=== PATIENT | male | born 1940 | race Caucasian/White ===

== ENCOUNTER 2017-03-31 11:01 | Inpatient (IN) | payer OTHER ==
[2017-03-31 11:13] VITALS: BMI 35.6
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
[2017-03-31] MEDS ORDERED: SODIUM CHLORIDE 1,000 ML IV STA ×2 (11:31→15:24)
[2017-03-31 11:53] LABS: VENOUS BLOOD GAS HCO3 25.6 meq/L (19-25); VENOUS PH 7.43 (7.32-7.42)
[2017-03-31 12:13] LABS: BASOPHIL 0.2 % (0-2.0); EOSINOPHIL 0.2 % (0-4.5); MCHC 33.8 g/dl (32.0-35.9); MEAN CELL VOLUME 94.6 fl (80-96); MEAN PLT VOLUME 7.8 fl (7.5-11.1); NEUTROPHILS 86.1 % (42.8-82.8); PLATELET COUNT 224 K/MM3 (134-434); RDW 14.9 % (11.9-15.9); WHITE BLOOD COUNT 10.1 K/mm3 (4.0-10.0)
[2017-03-31 12:17] LABS: URINE APPEARANCE CLEAR; URINE BILIRUBIN NEGATIVE (NEGATIVE); URINE BLOOD NEGATIVE (NEGATIVE); URINE COLOR DKYELLOW; URINE GLUCOSE (UA) NEGATIVE (NEGATIVE); URINE KETONE NEGATIVE (NEGATIVE); URINE LEUK ESTERASE NEGATIVE (NEGATIVE); URINE NITRITE NEGATIVE (NEGATIVE); URINE UROBILINOGEN NEGATIVE E.U./dl (0.2-1.0)
[2017-03-31 12:26] LABS: URINE PROTEIN 1+ (NEGATIVE)
[2017-03-31 12:40] LABS: ALBUMIN 2.6 g/dl (3.4-5.0); ANION GAP 10 (8-16); BILIRUBIN,TOTAL 0.9 mg/dL (0.2-1.0); CALCIUM 8.4 mg/dL (8.5-10.1); CO2 28 mmol/L (21-32); COCKROFT - GAULT 61.45; CREATININE 1.3 mg/dL (0.7-1.3); GLUCOSE,RANDOM 150 mg/dL (74-106); SGOT/AST 73 U/L (15-37); SGPT/ALT 63 U/L (12-78)
[2017-03-31 12:43] LABS: ALK PHOS 147 U/L (45-117); TOT PROT 5.9 g/dl (6.4-8.2); TROPONIN I < 0.02 ng/ml (0.00-0.05)
[2017-03-31 12:44] LABS: GRANULAR CASTS 10 /lpf; URINE MUCUS RARE; URINE RBC 1 /hpf (0-3); URINE WBC 1 /hpf (3-5)
[2017-03-31 12:55] LABS: INR 1.52 (0.82-1.09); PROTHROMBIN TIME (PATIENT) 16.9 SEC (9.98-11.88)
[2017-03-31 12:58] LABS: ACTIVATED PTT 31.2 SECONDS (26.9-34.4)
--- NOTE | 2017-03-31 13:59 | EKG ---
Test Reason : Blood Pressure : / mmHG Vent. Rate : 084 BPM Atrial Rate : 084 BPM P-R Int : 168 ms QRS Dur : 088 ms QT Int : 360 ms P-R-T Axes : 016 -09 063 degrees QTc Int : 425 ms NORMAL SINUS RHYTHM WITH SINUS ARRHYTHMIA NORMAL ECG NO PREVIOUS ECGS AVAILABLE Confirmed by ELIJAH TRAN MD ([id number]) on 03/31/2017 1:58:48 PM Referred By: Confirmed By:ELIJAH TRAN MD
--- NOTE | 2017-03-31 15:23 | PDOC ---
*Physical Exam - Vital Signs Last Vital Signs Temp Pulse Resp BP Pulse Ox 98.1 F 83 20 105/61 95 03/31/17 11:07 03/31/17 11:07 03/31/17 11:07 03/31/17 11:07 03/31/17 11:07 ED Treatment Course - LABORATORY CBC & Chemistry Diagram: 04/05/17 07:10 04/05/17 07:10 - ADDITIONAL ORDERS Additional order review: Laboratory Results 03/31/17 03/31/17 03/31/17 12:00 12:00 12:00 INR PTT (Actin FS) VBG pH POC VBG pCO2 POC VBG pO2 Mixed VBG HCO3 Sodium 143 Potassium 3.8 Chloride 105 Carbon Dioxide 28 Anion Gap 10 BUN 39 H Creatinine 1.3 Creat Clearance w eGFR 53.25 Random Glucose 150 H Lactic Acid 1.318 Calcium 8.4 L Total Bilirubin 0.9 AST 73 H ALT 63 Alkaline Phosphatase 147 H Creatine Kinase 54 Troponin I < 0.02 Total Protein 5.9 L Albumin 2.6 L Urine Color Urine Appearance Urine pH Urine Protein Urine Glucose (UA) Urine Ketones Urine Blood Urine Nitrite Urine Bilirubin Urine Urobilinogen Ur Leukocyte Esterase Urine RBC Urine WBC Granular Casts Urine Mucus Blood Type O POSITIVE Antibody Screen Negative 03/31/17 03/31/17 03/31/17 12:00 12:00 11:35 INR 1.52 H PTT (Actin FS) 31.2 VBG pH 7.43 H POC VBG pCO2 39.1 POC VBG pO2 52.1 H Mixed VBG HCO3 25.6 H Sodium Potassium Chloride Carbon Dioxide Anion Gap BUN Creatinine Creat Clearance w eGFR Random Glucose Lactic Acid Calcium Total Bilirubin AST ALT Alkaline Phosphatase Creatine Kinase Troponin I Total Protein Albumin Urine Color Dkyellow Urine Appearance Clear Urine pH 5.0 Urine Protein 1+ H Urine Glucose (UA) Negative Urine Ketones Negative Urine Blood Negative Urine Nitrite Negative Urine Bilirubin Negative Urine Urobilinogen Negative Ur Leukocyte Esterase Negative Urine RBC 1 Urine WBC 1 Granular Casts 10 Urine Mucus Rare Blood Type Antibody Screen 03/31/17 12:00 RBC 4.08 MCV 94.6 MCHC 33.8 RDW 14.9 MPV 7.8 Neutrophils % 86.1 H Lymphocytes % 9.2 Monocytes % 4.3 Eosinophils % 0.2 Basophils % 0.2 - Medications Given in the ED: ED Medications Discontinued Medications Generic Name Dose Route Start Last Admin Trade Name Freq PRN Reason Stop Dose Admin Sodium Chloride 1,000 mls @ 1,000 mls/hr 03/31/17 11:31 03/31/17 11:58 Normal Saline - IV 03/31/17 12:30 1,000 mls/hr ASDIR STA Administration Medical Decision Making - Medical Decision Making 03/31/17 15:22 Patient seen and evaluated with the nurse practitioner. I agree with the overall evaluation, assessment, and management with the following summary of visit: 77-year-old male from alf complaining of abdominal pain and cough. Workup revealed white count of 10 with left shift, moderate left pleural effusion which is new from previous chest x-ray, normal abdominal x-ray. CT of the abdomen and pelvis is pending. Blood bed for new pleural effusion in the setting of cough, likely coverage for pneumonia, further evaluation of abdominal pain. *DC/Admit/Observation/Transfer Diagnosis at time of Disposition: Pleural effusion Abdominal pain Qualifiers: Abdominal location: right lower quadrant Qualified Code(s): R10.31 - Right lower quadrant pain
[2017-03-31] MEDS ORDERED: ONDANSETRON 4 MG/2 ML VIAL IVPB PRN (21:08)
[2017-03-31] MEDS ORDERED: VANCOMYCIN 1 GRAM (PRE-DOCKED) 250 ML IVPB ONE (21:15)
[2017-03-31] MEDS ORDERED: PIPERACILLIN/TAZOB 3.375 GM 50 ML IVPB ONE (21:15)
[2017-03-31] MEDS: DOCUSATE SODIUM 100 MG CAPSULE (FP) PO SCH (22:22)
[2017-03-31] MEDS: INSULIN SLIDING SCALE (NOVOLOG) 1 VIAL SQ SCH (22:23)
[2017-04-01] MEDS: INSULIN SLIDING SCALE (NOVOLOG) 1 VIAL SQ SCH ×3 (06:05→17:23)
[2017-04-01 08:37] LABS: BASOPHIL 0.2 % (0-2.0); EOSINOPHIL 0.3 % (0-4.5); MCH 32.2 pg (25.7-33.7); MEAN CELL VOLUME 94.7 fl (80-96); MEAN PLT VOLUME 7.7 fl (7.5-11.1); NEUTROPHILS 85.7 % (42.8-82.8); PLATELET COUNT 217 K/MM3 (134-434)
[2017-04-01 08:48] LABS: CALCIUM 7.6 mg/dL (8.5-10.1); COCKROFT - GAULT 72.63; CREATININE 1.1 mg/dL (0.7-1.3); MAGNESIUM 2.7 mg/dL (1.8-2.4); PHOSPHOROUS 3.2 mg/dL (2.5-4.9)
[2017-04-01] MEDS: TAMSULOSIN HCL 0.4 MG CAP.ER.24H (FP) PO SCH (10:04)
[2017-04-01] MEDS: ENOXAPARIN NA (PORCINE) 40 MG/0.4 ML DISP.SYRIN SQ SCH (10:04)
[2017-04-01] MEDS: DOCUSATE SODIUM 100 MG CAPSULE (FP) PO SCH ×2 (10:04→10:22)
[2017-04-01] MEDS: MEMANTINE HCL 10 MG TABLET (FP) PO SCH (10:04)
[2017-04-01] MEDS: LACTOBACILLUS ACIDOPHILUS 1 EACH TAB (FP) PO SCH (10:04)
[2017-04-01] MEDS: POLYETHYLENE GLYCOL 3350 119 GM BTL PO SCH (10:05)
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
[2017-04-01] MEDS: PIPERACILLIN/TAZOB 3.375 GM 50 ML IVPB SCH ×2 (11:20→18:32)
--- NOTE | 2017-04-01 12:29 | HP ---
Admitting History and Physical - Primary Care Physician PCP: Donaldo Lucero - Admission Chief Complaint: I felt better yesterday History of Present Illness: Mr Damon is a 77 year old male who comes from [facility] for chest pain and pleural effusion. Patient says he feels fine. He denies fevers, chills lightheadedness, dizziness, passing out, chest pain, shortness of breath, nausea , vomiting, diarrhea, constipation, difficulty or pain on urination, or swelling. He says he did have a cough but it lasted for only 1 hour before it resolved. Currently he says he feels fine, but that he "needed to get out of that place" because he felt he "wasn't being treated right". Per ER note patient says he had nausea and vomiting. History Source: Patient, Medical Record Limitations to Obtaining History: Dementia - Past Medical History Pulmonary: Yes: COPD Renal/: Yes: BPH Endocrine: Yes: Diabetes Mellitus - Past Surgical History Past Surgical History: Yes: Hernia Repair - Smoking History Smoking history: Unknown if ever smoked Have you smoked in the past 12 months: No - Alcohol/Substance Use Hx Alcohol Use: No History of Substance Use: reports: None - Social History Usual Living Arrangement: Yes: Senior Living ADL: Support Services History of Recent Travel: No Home Medications - Allergies Allergies/Adverse Reactions: Allergies Allergy/AdvReac Type Severity Reaction Status Date / Time No Known Allergies Allergy Verified 03/31/17 11:03 - Home Medications Home Medications: Ambulatory Orders Albuterol 2.5/Ipratropium 0.5 [Duoneb -] 1 neb NEB Q4H 03/31/17 Furosemide [Lasix] 80 mg PO DAILY 03/31/17 Insulin Lispro [Humalog] 100 unit SQ DAILY 03/31/17 Memantine HCl [Namenda -] 10 mg PO DAILY 03/31/17 Tamsulosin HCl 0.4 mg PO DAILY 03/31/17 Family Disease History - Family Disease History Family History: Denies Review of Systems Findings/Remarks: Full review of systems obtained, as per HPI and otherwise negative. However accuracy is questionable. Physical Examination Vital Signs: Vital Signs Temperature 99.3 F 04/01/17 09:48 Pulse Rate 88 04/01/17 09:48 Respiratory Rate 18 04/01/17 09:48 Blood Pressure 132/73 04/01/17 09:48 O2 Sat by Pulse Oximetry (%) 96 04/01/17 10:00 Constitutional: Yes: No Distress, Calm, Obese Eyes: Yes: Conjunctiva Clear, PERRL HENT: Yes: Atraumatic, Normocephalic Cardiovascular: Yes: Regular Rate and Rhythm. No: Gallop, Murmur, Rub Respiratory: Yes: Regular, On Nasal O2, Rales (slight, but with poor effort). No: Rhonchi, Wheezes Gastrointestinal: Yes: Normal Bowel Sounds, Soft. No: Distention, Tenderness Extremities: Yes: WNL Edema: No Labs: CBC, BMP 04/01/17 07:30 04/01/17 07:30 Imaging - Results Chest X-ray: Report Reviewed, Image Reviewed Cat Scan: Report Reviewed Problem List - Problems (1) HCAP (healthcare-associated pneumonia) Assessment/Plan: -patient presents with concern for infection including HCAP -difficult to ascertain as patient makes different complaints -ID following -continue zosyn Code(s): J18.9 - PNEUMONIA, UNSPECIFIED ORGANISM (2) Pleural effusion Assessment/Plan: -seen on CXR and CT scan -pulmonary consult -evaluate for possible thoracentesis Code(s): J90 - PLEURAL EFFUSION, NOT ELSEWHERE CLASSIFIED (3) Abdominal pain Assessment/Plan: -resolved per patient, currently saying never had -CT scan showing possible colitis -continue zosyn Code(s): R10.9 - UNSPECIFIED ABDOMINAL PAIN Qualifiers: Abdominal location: right lower quadrant Qualified Code(s): R10.31 - Right lower quadrant pain (4) Dementia Assessment/Plan: -continue namenda Code(s): F03.90 - UNSPECIFIED DEMENTIA WITHOUT BEHAVIORAL DISTURBANCE (5) COPD (chronic obstructive pulmonary disease) Assessment/Plan: -not in exacerbation -continue home regimen Code(s): J44.9 - CHRONIC OBSTRUCTIVE PULMONARY DISEASE, UNSPECIFIED (6) Diabetes mellitus Assessment/Plan: -diabetic diet -FSBS and SSI Code(s): E11.9 - TYPE 2 DIABETES MELLITUS WITHOUT COMPLICATIONS (7) BPH (benign prostatic hyperplasia) Assessment/Plan: -continue tamsulosin Code(s): N40.0 - BENIGN PROSTATIC HYPERPLASIA WITHOUT LOWER URINRY TRACT SYMP
--- NOTE | 2017-04-01 15:38 | CON.PULM ---
Consult Consult Specialty:: PULMONARY Referred by:: Dr. Rosales Reason for Consultation:: pleural effusion - History of Present Illness Chief Complaint: abdominal pain History of Present Illness: 77yo male with h/o DM, COPD, BPH who [facility]. He reports a nonproductive cough without wheezing. No shortness of breath or palpitations. No fevers, chills or sweats. No nausea, vomiting or diarrhea. He reports that his roommate at the [facility] was ill with a cough. No recent travel. He is a remote smoker, worked in a bakery. CT A/P done showing possible colitis but lung windows revealing left effusion with consolidation vs mass. - History Source History Provided By: Patient, Medical Record Limitations to Obtaining History: Poor Historian - Past Medical History Pulmonary: Yes: COPD Renal/: Yes: BPH Endocrine: Yes: Diabetes Mellitus - Past Surgical History Past Surgical History: Yes: Hernia Repair - Alcohol/Substance Use Hx Alcohol Use: No History of Substance Use: reports: None - Smoking History Smoking history: Unknown if ever smoked Have you smoked in the past 12 months: No - Social History ADL: Support Services History of Recent Travel: No Home Medications - Allergies Allergies/Adverse Reactions: Allergies Allergy/AdvReac Type Severity Reaction Status Date / Time No Known Allergies Allergy Verified 03/31/17 11:03 - Home Medications Home Medications: Ambulatory Orders Albuterol 2.5/Ipratropium 0.5 [Duoneb -] 1 neb NEB Q4H 03/31/17 Furosemide [Lasix] 80 mg PO DAILY 03/31/17 Insulin Lispro [Humalog] 100 unit SQ DAILY 03/31/17 Memantine HCl [Namenda -] 10 mg PO DAILY 03/31/17 Tamsulosin HCl 0.4 mg PO DAILY 03/31/17 Review of Systems - Review of Systems Constitutional: reports: Weakness. denies: Chills, Fever Eyes: denies: Recent Change in Vision HENT: denies: Nasal Congestion, Throat Pain Neck: denies: Stiffness, Tenderness Cardiovascular: reports: Chest Pain. denies: Edema, Palpitations, Shortness of Breath Respiratory: reports: Cough. denies: Hemoptysis, SOB, Wheezing Gastrointestinal: reports: Abdominal Pain. denies: Nausea, Vomiting Genitourinary: denies: Dysuria, Hematuria Neurological: denies: Dizziness, Headache Physical Exam Vital Sings: Vital Signs Temperature 98.8 F 04/01/17 14:24 Pulse Rate 79 04/01/17 14:24 Respiratory Rate 15 04/01/17 14:24 Blood Pressure 90/52 04/01/17 14:24 O2 Sat by Pulse Oximetry (%) 96 04/01/17 10:00 Constitutional: Yes: Calm Eyes: Yes: Conjunctiva Clear, EOM Intact HENT: Yes: Atraumatic, Normocephalic Neck: Yes: Supple, Trachea Midline Cardiovascular: Yes: Regular Rate and Rhythm Respiratory: Yes: Diminished (decreased breath sounds left base) ...Clubbing: No Gastrointestinal: Yes: Normal Bowel Sounds, Soft. No: Tenderness Edema: No Neurological: Yes: Alert, Oriented Labs: CBC, BMP 04/01/17 07:30 04/01/17 07:30 Imaging - Results Chest X-ray: Report Reviewed, Image Reviewed Problem List - Problems (1) COPD (chronic obstructive pulmonary disease) Code(s): J44.9 - CHRONIC OBSTRUCTIVE PULMONARY DISEASE, UNSPECIFIED (2) Diabetes mellitus Code(s): E11.9 - TYPE 2 DIABETES MELLITUS WITHOUT COMPLICATIONS (3) HCAP (healthcare-associated pneumonia) Code(s): J18.9 - PNEUMONIA, UNSPECIFIED ORGANISM (4) Pleural effusion Code(s): J90 - PLEURAL EFFUSION, NOT ELSEWHERE CLASSIFIED Assessment/Plan r/o Pneumonia Pleural Effusion COPD DM BPH - will order diagnostic ultrasound guided thoracentesis - hold AM lovenox - send pleural fluid for LDH, total protein, glucose, cholesterol, cell count, cultures and cytology - would obtain CT chest noncontrast post thoracentesis to further evaluate for underlying pathology - agree with empiric antibiotics - f/u cultures - inhaled bronchodilators as needed - DVT prophylaxis Thank you for this consult Higinio Ordaz MD
[2017-04-01] MEDS ORDERED: INSULIN (NOVOLOG MIX 70/30) 100 UNITS/ML MDV SQ ONE (17:07)
[2017-04-01] MEDS ORDERED: INSULIN (NOVOLOG) ASPART 100 UNITS/ML 10ML VIAL ONE (17:07)
[2017-04-01] MEDS: ALBUTEROL SO4 2.5/IPRATROPIUM 0.5 INH SOL 3 ML VIAL.NEB. NEB SCH (22:05)
[2017-04-02] MEDS: INSULIN SLIDING SCALE (NOVOLOG) 1 VIAL SQ SCH ×5 (00:10→21:56)
[2017-04-02] MEDS: PIPERACILLIN/TAZOB 3.375 GM 50 ML IVPB SCH ×3 (01:27→17:15)
[2017-04-02] MEDS: ALBUTEROL SO4 2.5/IPRATROPIUM 0.5 INH SOL 3 ML VIAL.NEB. NEB SCH ×4 (02:20→22:19)
[2017-04-02 08:04] LABS: BASOPHIL 0.3 % (0-2.0); EOSINOPHIL 1.5 % (0-4.5); MCH 32.5 pg (25.7-33.7); MCHC 34.3 g/dl (32.0-35.9); MEAN CELL VOLUME 94.8 fl (80-96); MEAN PLT VOLUME 7.6 fl (7.5-11.1); NEUTROPHILS 68.2 % (42.8-82.8); PLATELET COUNT 207 K/MM3 (134-434); RDW 14.9 % (11.9-15.9); WHITE BLOOD COUNT 5.5 K/mm3 (4.0-10.0)
[2017-04-02 08:29] LABS: CALCIUM 7.9 mg/dL (8.5-10.1); COCKROFT - GAULT 72.63; CREATININE 1.1 mg/dL (0.7-1.3); MAGNESIUM 2.8 mg/dL (1.8-2.4); PHOSPHOROUS 3.8 mg/dL (2.5-4.9)
[2017-04-02 08:30] LABS: INR 1.44 (0.82-1.09)
[2017-04-02] MEDS: MEMANTINE HCL 10 MG TABLET (FP) PO SCH (10:02)
[2017-04-02] MEDS: LACTOBACILLUS ACIDOPHILUS 1 EACH TAB (FP) PO SCH (10:02)
[2017-04-02] MEDS: POLYETHYLENE GLYCOL 3350 119 GM BTL PO SCH (10:02)
[2017-04-02] MEDS: TAMSULOSIN HCL 0.4 MG CAP.ER.24H (FP) PO SCH (10:02)
[2017-04-02 12:29] LABS: GLUCOSE,PLEURAL FLUID 136.506; TOTAL PROTEIN,PLEURAL FLUID 3.675
[2017-04-02 12:32] LABS: PLEURAL FLUID SOURCE LEFT PLEURAL FLUID
[2017-04-02 12:33] LABS: PLEURAL FLUID APPEARANCE HAZY; PLEURAL FLUID COLOR YELLOW
--- NOTE | 2017-04-02 12:38 | PN ---
Progress Note, Physician Chief Complaint: Mr Damon complains of a cough, but otherwise says he is doing well. No cp, sob, n/v. - Current Medication List Current Medications: Active Medications Acetaminophen (Tylenol -) 650 mg PO Q4H PRN PRN Reason: FEVER OR PAIN Albuterol/Ipratropium (Duoneb -) 1 amp NEB Q4HPO [facility] Last Admin: 04/02/17 10:00 Dose: 1 amp Enoxaparin Sodium (Lovenox -) 40 mg SQ DAILY [facility] Last Admin: 04/01/17 10:04 Dose: 40 mg Piperacillin Sod/Tazobactam Sod (Zosyn 3.375gm Ivpb (Pre-Docked)) 50 mls @ 100 mls/hr IVPB Q8H-IV [facility] PRN Reason: Protocol Last Admin: 04/02/17 10:01 Dose: 100 mls/hr Insulin Aspart (Novolog Vial Sliding Scale -) 1 vial SQ ACHS [facility] PRN Reason: Protocol Last Admin: 04/02/17 12:28 Dose: Not Given Lactobacillus Acidophilus (Bacid -) 1 tab PO DAILY [facility] Last Admin: 04/02/17 10:02 Dose: 1 tab Memantine (Namenda -) 10 mg PO DAILY [facility] Last Admin: 04/02/17 10:02 Dose: 10 mg Ondansetron HCl (Zofran Injection) 4 mg IVPB Q6H PRN PRN Reason: NAUSEA Polyethylene Glycol (Miralax (For Daily Use) -) 17 gm PO DAILY [facility] Last Admin: 04/02/17 10:02 Dose: Not Given Tamsulosin HCl (Flomax -) 0.4 mg PO DAILY [facility] Last Admin: 04/02/17 10:02 Dose: 0.4 mg - Objective Vital Signs: Vital Signs Temperature 98.8 F 04/02/17 10:00 Pulse Rate 71 04/02/17 10:00 Respiratory Rate 18 04/02/17 10:00 Blood Pressure 101/54 04/02/17 10:00 O2 Sat by Pulse Oximetry (%) 95 04/01/17 22:00 Constitutional: Yes: No Distress, Calm, Obese Cardiovascular: Yes: Regular Rate and Rhythm. No: Gallop, Murmur, Rub Respiratory: Yes: Regular, CTA Bilaterally, Cough. No: Rales, Rhonchi, Wheezes Gastrointestinal: Yes: Normal Bowel Sounds, Soft. No: Distention, Tenderness Extremities: Yes: WNL Edema: No Labs: CBC, BMP 04/02/17 06:00 04/02/17 06:00 INR, PTT INR 1.44 (0.82-1.09) H 04/02/17 06:00 Problem List - Problems (1) Septicemia Code(s): A41.9 - SEPSIS, UNSPECIFIED ORGANISM (2) HCAP (healthcare-associated pneumonia) Code(s): J18.9 - PNEUMONIA, UNSPECIFIED ORGANISM (3) Pleural effusion Code(s): J90 - PLEURAL EFFUSION, NOT ELSEWHERE CLASSIFIED (4) Abdominal pain Code(s): R10.9 - UNSPECIFIED ABDOMINAL PAIN Qualifiers: Abdominal location: right lower quadrant Qualified Code(s): R10.31 - Right lower quadrant pain (5) Dementia Code(s): F03.90 - UNSPECIFIED DEMENTIA WITHOUT BEHAVIORAL DISTURBANCE (6) COPD (chronic obstructive pulmonary disease) Code(s): J44.9 - CHRONIC OBSTRUCTIVE PULMONARY DISEASE, UNSPECIFIED (7) Diabetes mellitus Code(s): E11.9 - TYPE 2 DIABETES MELLITUS WITHOUT COMPLICATIONS (8) BPH (benign prostatic hyperplasia) Code(s): N40.0 - BENIGN PROSTATIC HYPERPLASIA WITHOUT LOWER URINRY TRACT SYMP Assessment/Plan (1) Septicemia Assessment/Plan: -cultures growing alpha hemolytic strep -continue antibiotics -ID following -patient stable -agree with ECHO per pulmonary Code(s): J18.9 - PNEUMONIA, UNSPECIFIED ORGANISM (2) Pleural effusion Assessment/Plan: -/p thoracentesis -exudate per studies -CT scan Code(s): J90 - PLEURAL EFFUSION, NOT ELSEWHERE CLASSIFIED (3) Abdominal pain Assessment/Plan: -resolved per patient, currently saying never had Code(s): R10.9 - UNSPECIFIED ABDOMINAL PAIN Qualifiers: Abdominal location: right lower quadrant Qualified Code(s): R10.31 - Right lower quadrant pain (4) Dementia Assessment/Plan: -continue namenda Code(s): F03.90 - UNSPECIFIED DEMENTIA WITHOUT BEHAVIORAL DISTURBANCE (5) COPD (chronic obstructive pulmonary disease) Assessment/Plan: -not in exacerbation -continue home regimen Code(s): J44.9 - CHRONIC OBSTRUCTIVE PULMONARY DISEASE, UNSPECIFIED (6) Diabetes mellitus Assessment/Plan: -diabetic diet -FSBS and SSI Code(s): E11.9 - TYPE 2 DIABETES MELLITUS WITHOUT COMPLICATIONS (7) BPH (benign prostatic hyperplasia) Assessment/Plan: -continue tamsulosin Code(s): N40.0 - BENIGN PROSTATIC HYPERPLASIA WITHOUT LOWER URINRY TRACT SYMP
--- NOTE | 2017-04-02 12:45 | EKG ---
Test Reason : Blood Pressure : / mmHG Vent. Rate : 083 BPM Atrial Rate : 083 BPM P-R Int : 162 ms QRS Dur : 090 ms QT Int : 358 ms P-R-T Axes : 002 -12 051 degrees QTc Int : 420 ms NORMAL SINUS RHYTHM WITH SINUS ARRHYTHMIA NORMAL ECG WHEN COMPARED WITH ECG OF 31-MAR-2017 11:22, NO SIGNIFICANT CHANGE WAS FOUND Confirmed by SHAQIULLE ALVAREZ, GALINA ([id number]) on 04/02/2017 12:45:26 PM Referred By: SHARI Confirmed By:GALINA CORBIN MD
[2017-04-02 13:09] LABS: PLEURAL FLUID LYMPHOCYTES 15 %; PLEURAL FLUID MACROPHAGES 15 %; PLEURAL FLUID NEUTROPHIL 69 %
--- NOTE | 2017-04-02 15:01 | PN ---
Progress Note (short form) - Note Progress Note: PULMONARY RESTING COMFORTABLY VSS/AFEBRILE ANICTERIC DIMINISHED BREATH SOUNDS LEFT BASE S1S2 BS+ OBESE NO EDEMA LABS/MEDS/NOTES/MICRO/IMAGING REVIEWED - Problems (1) COPD (chronic obstructive pulmonary disease) Code(s): J44.9 - CHRONIC OBSTRUCTIVE PULMONARY DISEASE, UNSPECIFIED (2) Diabetes mellitus Code(s): E11.9 - TYPE 2 DIABETES MELLITUS WITHOUT COMPLICATIONS (3) HCAP (healthcare-associated pneumonia) Code(s): J18.9 - PNEUMONIA, UNSPECIFIED ORGANISM (4) Pleural effusion Code(s): J90 - PLEURAL EFFUSION, NOT ELSEWHERE CLASSIFIED (5) Strep bacteremia - thoracentesis reveals exudate by protein criteria - likely represents an uncomplicated para-pneumonic effusion - Strep bacteremia - awaiting gram stain pleural fluid - will obtain CT chest noncontrast post thoracentesis to further evaluate for underlying pathology - agree with empiric antibiotics - have ordered echo - inhaled bronchodilators as needed - DVT prophylaxis
[2017-04-02] MEDS ORDERED: INSULIN (NOVOLOG) ASPART 100 UNITS/ML 10ML VIAL ONE (21:29)
[2017-04-02] MEDS: SILVER SULFADIAZINE 1% TOP CREAM 50 GM JAR TP SCH (21:56)
[2017-04-02] MEDS ORDERED: BACITRACIN/POLYMYXIN B SULFATE 15 GM TUBE TP SCH (22:00)
[2017-04-03] MEDS: PIPERACILLIN/TAZOB 3.375 GM 50 ML IVPB SCH ×3 (01:50→17:48)
[2017-04-03] MEDS: ALBUTEROL SO4 2.5/IPRATROPIUM 0.5 INH SOL 3 ML VIAL.NEB. NEB SCH ×6 (02:10→21:55)
[2017-04-03] MEDS: INSULIN SLIDING SCALE (NOVOLOG) 1 VIAL SQ SCH ×4 (06:26→21:49)
[2017-04-03 08:31] LABS: BASOPHIL 0.5 % (0-2.0); MCH 31.8 pg (25.7-33.7); MCHC 33.9 g/dl (32.0-35.9); MEAN CELL VOLUME 94.1 fl (80-96); MEAN PLT VOLUME 7.4 fl (7.5-11.1); NEUTROPHILS 73.3 % (42.8-82.8); PLATELET COUNT 206 K/MM3 (134-434); RDW 14.9 % (11.9-15.9); WHITE BLOOD COUNT 4.3 K/mm3 (4.0-10.0)
[2017-04-03 08:54] LABS: COCKROFT - GAULT 79.89; MAGNESIUM 2.7 mg/dL (1.8-2.4); PHOSPHOROUS 3.6 mg/dL (2.5-4.9)
[2017-04-03] MEDS: MEMANTINE HCL 10 MG TABLET (FP) PO SCH (10:34)
[2017-04-03] MEDS: LACTOBACILLUS ACIDOPHILUS 1 EACH TAB (FP) PO SCH (10:35)
[2017-04-03] MEDS: TAMSULOSIN HCL 0.4 MG CAP.ER.24H (FP) PO SCH (10:35)
[2017-04-03] MEDS: SILVER SULFADIAZINE 1% TOP CREAM 50 GM JAR TP SCH ×2 (10:36→21:50)
[2017-04-03] MEDS: ENOXAPARIN NA (PORCINE) 40 MG/0.4 ML DISP.SYRIN SQ SCH (10:41)
[2017-04-03] MEDS: POLYETHYLENE GLYCOL 3350 119 GM BTL PO SCH (10:42)
--- NOTE | 2017-04-03 12:24 | PN ---
Progress Note (short form) - Note Progress Note: PULMONARY States breathing is better post thoracentesis. Fluid consistent with exudate, blood cultures growing strep pneumo. Gram stain of pleural fluid without organisms. Last Vital Signs Temp Pulse Resp BP Pulse Ox 98.2 F 76 18 109/56 95 04/03/17 06:00 04/03/17 06:00 04/03/17 06:00 04/03/17 06:00 04/02/17 21:00 Gen: NAD at rest Heart: RRR Lung: decreased breath sounds left base Abd: soft, nontender Ext: no edema CBC, BMP 04/03/17 08:00 04/03/17 08:00 Active Medications Acetaminophen (Tylenol -) 650 mg PO Q4H PRN PRN Reason: FEVER OR PAIN Albuterol/Ipratropium (Duoneb -) 1 amp NEB Q4HPO [facility] Last Admin: 04/03/17 10:17 Dose: 1 amp Enoxaparin Sodium (Lovenox -) 40 mg SQ DAILY [facility] Last Admin: 04/03/17 10:41 Dose: 40 mg Piperacillin Sod/Tazobactam Sod (Zosyn 3.375gm Ivpb (Pre-Docked)) 50 mls @ 100 mls/hr IVPB Q8H-IV [facility] PRN Reason: Protocol Last Admin: 04/03/17 10:35 Dose: 100 mls/hr Insulin Aspart (Novolog Vial Sliding Scale -) 1 vial SQ ACHS [facility] PRN Reason: Protocol Last Admin: 04/03/17 06:26 Dose: Not Given Lactobacillus Acidophilus (Bacid -) 1 tab PO DAILY [facility] Last Admin: 04/03/17 10:35 Dose: 1 tab Memantine (Namenda -) 10 mg PO DAILY [facility] Last Admin: 04/03/17 10:34 Dose: 10 mg Ondansetron HCl (Zofran Injection) 4 mg IVPB Q6H PRN PRN Reason: NAUSEA Polyethylene Glycol (Miralax (For Daily Use) -) 17 gm PO DAILY [facility] Last Admin: 04/03/17 10:42 Dose: 17 gm Silver Sulfadiazine (Silvadene -) 1 applic TP BID [facility] Last Admin: 04/03/17 10:36 Dose: 1 applic Tamsulosin HCl (Flomax -) 0.4 mg PO DAILY [facility] Last Admin: 04/03/17 10:35 Dose: 0.4 mg A/P Pneumonia Parapneumonic Pleural Effusion COPD DM BPH - f/u pleural fluid cultures, cytology - will order CT chest noncontrast post thoracentesis to further evaluate for underlying pathology - continue antibiotics, can likely de-escalate - f/u final cultures - inhaled bronchodilators as needed - DVT prophylaxis Problem List - Problems (1) COPD (chronic obstructive pulmonary disease) Code(s): J44.9 - CHRONIC OBSTRUCTIVE PULMONARY DISEASE, UNSPECIFIED (2) Diabetes mellitus Code(s): E11.9 - TYPE 2 DIABETES MELLITUS WITHOUT COMPLICATIONS (3) HCAP (healthcare-associated pneumonia) Code(s): J18.9 - PNEUMONIA, UNSPECIFIED ORGANISM (4) Pleural effusion Code(s): J90 - PLEURAL EFFUSION, NOT ELSEWHERE CLASSIFIED
--- NOTE | 2017-04-03 12:37 | CONSULT ---
Admitting History and Physical - Primary Care Physician PCP: Quintin Rosales - Past Medical History Pulmonary: Yes: COPD Renal/: Yes: BPH Endocrine: Yes: Diabetes Mellitus - Past Surgical History Past Surgical History: Yes: Hernia Repair - Smoking History Smoking history: Unknown if ever smoked Have you smoked in the past 12 months: No - Alcohol/Substance Use Hx Alcohol Use: No History of Substance Use: reports: None - Social History ADL: Support Services History of Recent Travel: No History - Admission Reason For Visit: LEUKOCYTOSIS; PLEURAL EFFUSION - Hearing Hearing: Normal Hearing Aide: No Speech Evaluation - Communication Primary Language: BRAZILIAN
--- NOTE | 2017-04-03 12:40 | CONSULT ---
Admitting History and Physical - Primary Care Physician PCP: Quintin Rosales - Admission History of Present Illness: Mr Damon is a 77 year old male who comes from [facility] for chest pain and pleural effusion. Reported to be breathing is better post thoracentesis. Fluid consistent with exudate, blood cultures growing strep pneumo. Gram stain of pleural fluid without organisms c/o regarding food consisteny. Pt has cough. Staff concerned regarding possible dysphagia, hence, swallow evaluation order placed. Per RD: "77 y/o M admitted with leukocytosis, pleural effusions, HCAP Diet: Diabetic/Chopped Pt is edentulous; diet in SNF: SOFT, easy to chew, NCS/MYRNA Pt is not taking meals; c/o of hospital foods, dislikes chopped foods. Asking for cheerios, pork, PB sandwich. Verbalizes dissatisfaction of meals choices in SNF as well. D/w Dr Rosales- possible diet upgrade to soft low na , diabetic diet. Per RN-pt is unable to swallow pills,prefers meds crushed. Denied swallowing difficulty" Seems like a good historian. c/o left shoulder pain. History Source: Patient Limitations to Obtaining History: No Limitations - Past Medical History Pulmonary: Yes: COPD Renal/: Yes: BPH Endocrine: Yes: Diabetes Mellitus - Past Surgical History Past Surgical History: Yes: Hernia Repair - Smoking History Smoking history: Unknown if ever smoked Have you smoked in the past 12 months: No - Alcohol/Substance Use Hx Alcohol Use: No History of Substance Use: reports: None - Social History ADL: Support Services History of Recent Travel: No History - Admission Reason For Visit: LEUKOCYTOSIS; PLEURAL EFFUSION - Diagnostics X-ray: Report Reviewed - General Mental Status: Alert and Oriented, Awake and Alert, Able to Follow Commands Attention: Intact Ability to Follow Directions: Good Head/Neck Control: WFL - Hearing Hearing: Functional Hearing: Normal Hearing Aide: No Speech Evaluation - Communication Primary Language: ROMANSH Communication: Yes: Within Normal Limits Oral Expression Ability: Yes: No Impairment - Speech Characteristics Voice Loudness: Normal Voice Pitch: Yes: Normal Voice Phonatory-based Quality: Yes: Normal Nasal Resonance: Normal Articulation: Yes: Precise Rate of Speech: Intact - Language/Verbal Expression Able to Respond to Simple Queries: Yes: WNL Able to Communicate Wants and Needs: Yes: WNL Functional Communication Status: Yes: WNL - Swallow Evaluation/Bedside Assessment Current Nutritional Intake: Soft Oral Secretions: Yes: WFL Dentition: Yes: Edentulous Facial Symmetry at Rest: Symmetrical Facial Symmetry on Retraction: Symmetrical Facial Movement: Controlled Against Resistance Opening: Normal Against Resistance Closing: Normal Pucker Lips: Normal Smile: Normal Lingual Movement: Normal, Deviates Left (slight?) Lingual Speed of Movement: Normal Lingual Movement Strgth Against Opposition: Normal Lingual Movement Characteristics: Normal Velopharyngeal Movement: Normal Laryngeal Elevation: WFL Laryngeal Movement: Able to Palpate Rate of Intake: WFL Bolus Size: WFL Labial Seal: WFL Chewing: WFL (gums solid food extensively until well masticated.) Oral Prep Time: WFL A-P Transit: WFL Pocketing: None Timing of Swallow: WFL Coughing/Throat Clear: No Change in Voice: No Recommendations - Speech Evaluation, Impression/Plan Impression: 3 oz water test (-).Edentulous, however, gums solid food extensively until well masticated.Euphonic voice. Coughs without po trials. Likes soft, easy to chew foods. - Dysphagia Impressions/Plan Dysphagia Impressions: Mild Impairment (seems intact) *Silent aspiration: cannot be R/O at bedside (overtly intact) Recommendations: Modified Barium Swallow (if dysphagia/ aspiration observed or suspected) - Recommendations Diet Consistency: Regular (Soft easy to chew foods. Menu selection for pt preferences.) Liquids: Thin Liquids
--- NOTE | 2017-04-03 13:23 | PN ---
Progress Note, Physician Chief Complaint: Mr Damon says he is feeling better today. No cp, sob, n/v. - Current Medication List Current Medications: Active Medications Acetaminophen (Tylenol -) 650 mg PO Q4H PRN PRN Reason: FEVER OR PAIN Albuterol/Ipratropium (Duoneb -) 1 amp NEB Q4HPO [facility] Last Admin: 04/03/17 10:17 Dose: 1 amp Enoxaparin Sodium (Lovenox -) 40 mg SQ DAILY [facility] Last Admin: 04/03/17 10:41 Dose: 40 mg Piperacillin Sod/Tazobactam Sod (Zosyn 3.375gm Ivpb (Pre-Docked)) 50 mls @ 100 mls/hr IVPB Q8H-IV [facility] PRN Reason: Protocol Last Admin: 04/03/17 10:35 Dose: 100 mls/hr Insulin Aspart (Novolog Vial Sliding Scale -) 1 vial SQ ACHS [facility] PRN Reason: Protocol Last Admin: 04/03/17 12:28 Dose: 2 units Lactobacillus Acidophilus (Bacid -) 1 tab PO DAILY [facility] Last Admin: 04/03/17 10:35 Dose: 1 tab Memantine (Namenda -) 10 mg PO DAILY [facility] Last Admin: 04/03/17 10:34 Dose: 10 mg Ondansetron HCl (Zofran Injection) 4 mg IVPB Q6H PRN PRN Reason: NAUSEA Polyethylene Glycol (Miralax (For Daily Use) -) 17 gm PO DAILY [facility] Last Admin: 04/03/17 10:42 Dose: 17 gm Silver Sulfadiazine (Silvadene -) 1 applic TP BID [facility] Last Admin: 04/03/17 10:36 Dose: 1 applic Tamsulosin HCl (Flomax -) 0.4 mg PO DAILY [facility] Last Admin: 04/03/17 10:35 Dose: 0.4 mg - Objective Vital Signs: Vital Signs Temperature 98.2 F 04/03/17 06:00 Pulse Rate 76 04/03/17 06:00 Respiratory Rate 18 04/03/17 06:00 Blood Pressure 109/56 04/03/17 06:00 O2 Sat by Pulse Oximetry (%) 95 04/02/17 21:00 Constitutional: Yes: No Distress, Calm, Obese Cardiovascular: Yes: Regular Rate and Rhythm. No: Gallop, Murmur, Rub Respiratory: Yes: Regular, CTA Bilaterally. No: Rales, Rhonchi, Wheezes Gastrointestinal: Yes: Normal Bowel Sounds, Soft. No: Distention, Tenderness Extremities: Yes: WNL Edema: No Labs: CBC, BMP 04/03/17 08:00 04/03/17 08:00 INR, PTT INR 1.44 (0.82-1.09) H 04/02/17 06:00 Problem List - Problems (1) Septicemia Code(s): A41.9 - SEPSIS, UNSPECIFIED ORGANISM (2) HCAP (healthcare-associated pneumonia) Code(s): J18.9 - PNEUMONIA, UNSPECIFIED ORGANISM (3) Pleural effusion Code(s): J90 - PLEURAL EFFUSION, NOT ELSEWHERE CLASSIFIED (4) Abdominal pain Code(s): R10.9 - UNSPECIFIED ABDOMINAL PAIN Qualifiers: Abdominal location: right lower quadrant Qualified Code(s): R10.31 - Right lower quadrant pain (5) Dementia Code(s): F03.90 - UNSPECIFIED DEMENTIA WITHOUT BEHAVIORAL DISTURBANCE (6) COPD (chronic obstructive pulmonary disease) Code(s): J44.9 - CHRONIC OBSTRUCTIVE PULMONARY DISEASE, UNSPECIFIED (7) Diabetes mellitus Code(s): E11.9 - TYPE 2 DIABETES MELLITUS WITHOUT COMPLICATIONS (8) BPH (benign prostatic hyperplasia) Code(s): N40.0 - BENIGN PROSTATIC HYPERPLASIA WITHOUT LOWER URINRY TRACT SYMP Assessment/Plan (1) Septicemia Assessment/Plan: -cultures growing streptococcus pneumonia -case d/w Dr Thompson -continue zosyn currently Code(s): J18.9 - PNEUMONIA, UNSPECIFIED ORGANISM (2) Pleural effusion Assessment/Plan: -s/p thoracentesis -repeat CT scan today Code(s): J90 - PLEURAL EFFUSION, NOT ELSEWHERE CLASSIFIED (3) Abdominal pain Assessment/Plan: -resolved Code(s): R10.9 - UNSPECIFIED ABDOMINAL PAIN Qualifiers: Abdominal location: right lower quadrant Qualified Code(s): R10.31 - Right lower quadrant pain (4) Dementia Assessment/Plan: -continue namenda Code(s): F03.90 - UNSPECIFIED DEMENTIA WITHOUT BEHAVIORAL DISTURBANCE (5) COPD (chronic obstructive pulmonary disease) Assessment/Plan: -not in exacerbation -continue home regimen Code(s): J44.9 - CHRONIC OBSTRUCTIVE PULMONARY DISEASE, UNSPECIFIED (6) Diabetes mellitus Assessment/Plan: -diabetic diet -FSBS and SSI Code(s): E11.9 - TYPE 2 DIABETES MELLITUS WITHOUT COMPLICATIONS (7) BPH (benign prostatic hyperplasia) Assessment/Plan: -continue tamsulosin Code(s): N40.0 - BENIGN PROSTATIC HYPERPLASIA WITHOUT LOWER URINRY TRACT SYMP
[2017-04-03] MEDS ORDERED: CEFTRIAXONE 50 ML IVPB SCH (15:00)
--- NOTE | 2017-04-03 16:08 | PATH ---
Cytology Non-Gynecological Report Patient Name: DAPHNE GARCIA [facility]. Rec. #: [id number] /Age/Gender: 1940 (Age: 77) / M Account: [id number] Location: [address] [place] [address] Taken: 04/02/2017 Received: 04/02/2017 Reported: 04/03/2017 Physicians: Dominic Cespedes M.D. Specimen(s) Received LEFT PLEURAL FLUID Clinical History Pleural effusion Final Diagnosis PLEURAL FLUID, LEFT, THORACENTESIS: SATISFACTORY FOR EVALUATION. NO MALIGNANT CELLS IDENTIFIED. REACTIVE MESOTHELIAL CELLS, HISTIOCYTES AND MIXED INFLAMMATORY CELLS INCLUDING NEUTROPHILS. Electronically Signed Teddy Rockwell M.D. Gross Description Received is 50 cc old bloody fluid in 50% alcohol. One cytofunnel slide and one cell block are made.
--- NOTE | 2017-04-03 17:10 | PN ---
Progress Note, Physician History of Present Illness: patient stable no new issues patient probably for tap tomorrow feels much better - Current Medication List Current Medications: Active Medications Acetaminophen (Tylenol -) 650 mg PO Q4H PRN PRN Reason: FEVER OR PAIN Albuterol/Ipratropium (Duoneb -) 1 amp NEB Q4HPO [facility] Last Admin: 04/03/17 14:50 Dose: 1 amp Enoxaparin Sodium (Lovenox -) 40 mg SQ DAILY [facility] Last Admin: 04/03/17 10:41 Dose: 40 mg Ceftriaxone Sodium (Rocephin 1gm Ivpb (Pre-Docked)) 50 mls @ 100 mls/hr IVPB DAILY [facility] Last Admin: 04/03/17 15:40 Dose: 100 mls/hr Insulin Aspart (Novolog Vial Sliding Scale -) 1 vial SQ ACHS [facility] PRN Reason: Protocol Last Admin: 04/03/17 12:28 Dose: 2 units Lactobacillus Acidophilus (Bacid -) 1 tab PO DAILY [facility] Last Admin: 04/03/17 10:35 Dose: 1 tab Memantine (Namenda -) 10 mg PO DAILY [facility] Last Admin: 04/03/17 10:34 Dose: 10 mg Ondansetron HCl (Zofran Injection) 4 mg IVPB Q6H PRN PRN Reason: NAUSEA Polyethylene Glycol (Miralax (For Daily Use) -) 17 gm PO DAILY [facility] Last Admin: 04/03/17 10:42 Dose: 17 gm Silver Sulfadiazine (Silvadene -) 1 applic TP BID [facility] Last Admin: 04/03/17 10:36 Dose: 1 applic Tamsulosin HCl (Flomax -) 0.4 mg PO DAILY [facility] Last Admin: 04/03/17 10:35 Dose: 0.4 mg - Objective Vital Signs: Vital Signs Temperature 99.2 F 04/03/17 14:43 Pulse Rate 67 04/03/17 14:43 Respiratory Rate 18 04/03/17 14:43 Blood Pressure 108/57 04/03/17 14:43 O2 Sat by Pulse Oximetry (%) 95 04/02/17 21:00 Constitutional: Yes: No Distress, Calm Cardiovascular: Yes: Regular Rate and Rhythm Respiratory: Yes: Regular, Poor Air Entry (bases) Gastrointestinal: Yes: Normal Bowel Sounds, Soft Musculoskeletal: Yes: WNL Extremities: Yes: Other Neurological: Yes: Alert, Oriented Psychiatric: Yes: Alert, Oriented Labs: CBC, BMP 04/03/17 08:00 04/03/17 08:00 INR, PTT INR 1.44 (0.82-1.09) H 04/02/17 06:00 Assessment/Plan Problem List - Problems (1) HCAP (healthcare-associated pneumonia) Code(s): J18.9 - PNEUMONIA, UNSPECIFIED ORGANISM (2) Pleural effusion Code(s): J90 - PLEURAL EFFUSION, NOT ELSEWHERE CLASSIFIED (3) Abdominal pain Code(s): R10.9 - UNSPECIFIED ABDOMINAL PAIN Qualifiers: Abdominal location: right lower quadrant Qualified Code(s): R10.31 - Right lower quadrant pain (4) Dementia Code(s): F03.90 - UNSPECIFIED DEMENTIA WITHOUT BEHAVIORAL DISTURBANCE (5) COPD (chronic obstructive pulmonary disease) Code(s): J44.9 - CHRONIC OBSTRUCTIVE PULMONARY DISEASE, UNSPECIFIED (6) Diabetes mellitus Code(s): E11.9 - TYPE 2 DIABETES MELLITUS WITHOUT COMPLICATIONS (7) BPH (benign prostatic hyperplasia) Code(s): N40.0 - BENIGN PROSTATIC HYPERPLASIA WITHOUT LOWER URINRY TRACT SYMP after evaluating the patient he might have pna and he has bilateral pleural effusion also abd symptoms now has abated patient has been given zosyn and now he is on ceftriaxone plan cx report noted await for sensitivites for thoracocentesis tomorrow continue current mgmt rest as per primary
--- NOTE | 2017-04-03 17:13 | PN ---
Progress Note, Physician History of Present Illness: patient stable post thoracocentesis comfortable - Current Medication List Current Medications: Active Medications Acetaminophen (Tylenol -) 650 mg PO Q4H PRN PRN Reason: FEVER OR PAIN Albuterol/Ipratropium (Duoneb -) 1 amp NEB Q4HPO [facility] Last Admin: 04/03/17 14:50 Dose: 1 amp Enoxaparin Sodium (Lovenox -) 40 mg SQ DAILY [facility] Last Admin: 04/03/17 10:41 Dose: 40 mg Ceftriaxone Sodium (Rocephin 1gm Ivpb (Pre-Docked)) 50 mls @ 100 mls/hr IVPB DAILY [facility] Last Admin: 04/03/17 15:40 Dose: 100 mls/hr Insulin Aspart (Novolog Vial Sliding Scale -) 1 vial SQ ACHS [facility] PRN Reason: Protocol Last Admin: 04/03/17 12:28 Dose: 2 units Lactobacillus Acidophilus (Bacid -) 1 tab PO DAILY [facility] Last Admin: 04/03/17 10:35 Dose: 1 tab Memantine (Namenda -) 10 mg PO DAILY [facility] Last Admin: 04/03/17 10:34 Dose: 10 mg Ondansetron HCl (Zofran Injection) 4 mg IVPB Q6H PRN PRN Reason: NAUSEA Polyethylene Glycol (Miralax (For Daily Use) -) 17 gm PO DAILY [facility] Last Admin: 04/03/17 10:42 Dose: 17 gm Silver Sulfadiazine (Silvadene -) 1 applic TP BID [facility] Last Admin: 04/03/17 10:36 Dose: 1 applic Tamsulosin HCl (Flomax -) 0.4 mg PO DAILY [facility] Last Admin: 04/03/17 10:35 Dose: 0.4 mg - Objective Vital Signs: Vital Signs Temperature 99.2 F 04/03/17 14:43 Pulse Rate 67 04/03/17 14:43 Respiratory Rate 18 04/03/17 14:43 Blood Pressure 108/57 04/03/17 14:43 O2 Sat by Pulse Oximetry (%) 95 04/02/17 21:00 Constitutional: Yes: No Distress, Calm Cardiovascular: Yes: Regular Rate and Rhythm Respiratory: Yes: Regular, Poor Air Entry Gastrointestinal: Yes: Normal Bowel Sounds, Soft Musculoskeletal: Yes: WNL Extremities: Yes: Other Neurological: Yes: Alert Psychiatric: Yes: Alert Labs: CBC, BMP 05/25/17 08:00 04/03/17 08:00 INR, PTT INR 1.44 (0.82-1.09) H 04/02/17 06:00 - ....Imaging Chest X-ray: Report Reviewed Cat Scan: Image Reviewed (report pending) Assessment/Plan Problem List - Problems (1) HCAP (healthcare-associated pneumonia) Code(s): J18.9 - PNEUMONIA, UNSPECIFIED ORGANISM (2) Pleural effusion Code(s): J90 - PLEURAL EFFUSION, NOT ELSEWHERE CLASSIFIED (3) Abdominal pain Code(s): R10.9 - UNSPECIFIED ABDOMINAL PAIN Qualifiers: Abdominal location: right lower quadrant Qualified Code(s): R10.31 - Right lower quadrant pain (4) Dementia Code(s): F03.90 - UNSPECIFIED DEMENTIA WITHOUT BEHAVIORAL DISTURBANCE (5) COPD (chronic obstructive pulmonary disease) Code(s): J44.9 - CHRONIC OBSTRUCTIVE PULMONARY DISEASE, UNSPECIFIED (6) Diabetes mellitus Code(s): E11.9 - TYPE 2 DIABETES MELLITUS WITHOUT COMPLICATIONS (7) BPH (benign prostatic hyperplasia) Code(s): N40.0 - BENIGN PROSTATIC HYPERPLASIA WITHOUT LOWER URINRY TRACT SYMP 8 gram positive bacteremia plan sensitivities noted continue ceftriaxone for now will send repeat blood cx await for official read on ct scan rest as per primary team
[2017-04-03] MEDS: ACETAMINOPHEN 325 MG TABLET (FP) PO PRN (18:50)
[2017-04-03] MEDS ORDERED: INSULIN (NOVOLOG) ASPART 100 UNITS/ML 10ML VIAL ONE (21:19)
[2017-04-04] MEDS: PIPERACILLIN/TAZOB 3.375 GM 50 ML IVPB SCH ×3 (01:32→17:26)
[2017-04-04] MEDS: ALBUTEROL SO4 2.5/IPRATROPIUM 0.5 INH SOL 3 ML VIAL.NEB. NEB SCH ×6 (02:14→22:28)
[2017-04-04] MEDS: INSULIN SLIDING SCALE (NOVOLOG) 1 VIAL SQ SCH ×4 (06:28→21:38)
[2017-04-04 07:31] LABS: BASOPHIL 0.3 % (0-2.0); EOSINOPHIL 0.9 % (0-4.5); MCH 32.2 pg (25.7-33.7); MCHC 34.3 g/dl (32.0-35.9); MEAN PLT VOLUME 7.6 fl (7.5-11.1); NEUTROPHILS 74.2 % (42.8-82.8); PLATELET COUNT 217 K/MM3 (134-434); RDW 14.6 % (11.9-15.9); WHITE BLOOD COUNT 4.1 K/mm3 (4.0-10.0)
[2017-04-04 08:05] LABS: CALCIUM 8.1 mg/dL (8.5-10.1); COCKROFT - GAULT 57.06; CREATININE 1.4 mg/dL (0.7-1.3); MAGNESIUM 2.8 mg/dL (1.8-2.4); PHOSPHOROUS 4.5 mg/dL (2.5-4.9)
[2017-04-04] MEDS: ENOXAPARIN NA (PORCINE) 40 MG/0.4 ML DISP.SYRIN SQ SCH (09:13)
[2017-04-04] MEDS: LACTOBACILLUS ACIDOPHILUS 1 EACH TAB (FP) PO SCH (09:13)
[2017-04-04] MEDS: TAMSULOSIN HCL 0.4 MG CAP.ER.24H (FP) PO SCH (09:13)
[2017-04-04] MEDS: MEMANTINE HCL 10 MG TABLET (FP) PO SCH (09:13)
[2017-04-04] MEDS: POLYETHYLENE GLYCOL 3350 119 GM BTL PO SCH (09:16)
[2017-04-04] MEDS ORDERED: PT OWN MED DRAWER 7, Y5N ONE (09:17)
[2017-04-04] MEDS: SILVER SULFADIAZINE 1% TOP CREAM 50 GM JAR TP SCH ×2 (09:17→21:45)
--- NOTE | 2017-04-04 11:43 | PN ---
Progress Note, Physician Chief Complaint: Mr Damon says he is doing well. Says his appetite is returning. No cp, sob , n/v. - Current Medication List Current Medications: Active Medications Acetaminophen (Tylenol -) 650 mg PO Q4H PRN PRN Reason: FEVER OR PAIN Last Admin: 04/03/17 18:50 Dose: 650 mg Albuterol/Ipratropium (Duoneb -) 1 amp NEB Q4HPO [facility] Last Admin: 04/04/17 09:40 Dose: 1 amp Enoxaparin Sodium (Lovenox -) 40 mg SQ DAILY [facility] Last Admin: 04/04/17 09:13 Dose: 40 mg Piperacillin Sod/Tazobactam Sod (Zosyn 3.375gm Ivpb (Pre-Docked)) 50 mls @ 100 mls/hr IVPB Q8H-IV RODNEY PRN Reason: Protocol Last Admin: 04/04/17 09:13 Dose: 100 mls/hr Insulin Aspart (Novolog Vial Sliding Scale -) 1 vial SQ ACHS RODNEY PRN Reason: Protocol Last Admin: 04/04/17 11:28 Dose: 4 units Lactobacillus Acidophilus (Bacid -) 1 tab PO DAILY [facility] Last Admin: 04/04/17 09:13 Dose: 1 tab Memantine (Namenda -) 10 mg PO DAILY [facility] Last Admin: 04/04/17 09:13 Dose: 10 mg Ondansetron HCl (Zofran Injection) 4 mg IVPB Q6H PRN PRN Reason: NAUSEA Polyethylene Glycol (Miralax (For Daily Use) -) 17 gm PO DAILY [facility] Last Admin: 04/04/17 09:16 Dose: 17 gm Silver Sulfadiazine (Silvadene -) 1 applic TP BID [facility] Last Admin: 04/04/17 09:17 Dose: 1 applic Tamsulosin HCl (Flomax -) 0.4 mg PO DAILY [facility] Last Admin: 04/04/17 09:13 Dose: 0.4 mg - Objective Vital Signs: Vital Signs Temperature 97.6 F 04/04/17 08:11 Pulse Rate 78 04/04/17 09:40 Respiratory Rate 20 04/04/17 08:11 Blood Pressure 109/51 04/04/17 08:11 O2 Sat by Pulse Oximetry (%) 97 04/04/17 09:40 Constitutional: Yes: No Distress, Calm, Obese Cardiovascular: Yes: Regular Rate and Rhythm. No: Gallop, Murmur, Rub Respiratory: Yes: Regular, Rhonchi. No: Rales, Wheezes Gastrointestinal: Yes: Normal Bowel Sounds, Soft. No: Distention, Tenderness Extremities: Yes: WNL Edema: No Labs: CBC, BMP 04/04/17 06:40 04/04/17 06:40 INR, PTT INR 1.44 (0.82-1.09) H 04/02/17 06:00 Problem List - Problems (1) Septicemia Code(s): A41.9 - SEPSIS, UNSPECIFIED ORGANISM (2) HCAP (healthcare-associated pneumonia) Code(s): J18.9 - PNEUMONIA, UNSPECIFIED ORGANISM (3) Pleural effusion Code(s): J90 - PLEURAL EFFUSION, NOT ELSEWHERE CLASSIFIED (4) Abdominal pain Code(s): R10.9 - UNSPECIFIED ABDOMINAL PAIN Qualifiers: Abdominal location: right lower quadrant Qualified Code(s): R10.31 - Right lower quadrant pain (5) Dementia Code(s): F03.90 - UNSPECIFIED DEMENTIA WITHOUT BEHAVIORAL DISTURBANCE (6) COPD (chronic obstructive pulmonary disease) Code(s): J44.9 - CHRONIC OBSTRUCTIVE PULMONARY DISEASE, UNSPECIFIED (7) Diabetes mellitus Code(s): E11.9 - TYPE 2 DIABETES MELLITUS WITHOUT COMPLICATIONS (8) BPH (benign prostatic hyperplasia) Code(s): N40.0 - BENIGN PROSTATIC HYPERPLASIA WITHOUT LOWER URINRY TRACT SYMP (9) GT (acute kidney injury) Code(s): N17.9 - ACUTE KIDNEY FAILURE, UNSPECIFIED Assessment/Plan (1) Septicemia Assessment/Plan: -cultures growing streptococcus pneumonia -continue zosyn since found to have loculated fluid on CT scan Code(s): J18.9 - PNEUMONIA, UNSPECIFIED ORGANISM (2) Pleural effusion Assessment/Plan: -CT scan reviewed -loculated pleural effusion -pulmonary following Code(s): J90 - PLEURAL EFFUSION, NOT ELSEWHERE CLASSIFIED (3) Abdominal pain Assessment/Plan: -resolved Code(s): R10.9 - UNSPECIFIED ABDOMINAL PAIN Qualifiers: Abdominal location: right lower quadrant Qualified Code(s): R10.31 - Right lower quadrant pain (4) Dementia Assessment/Plan: -continue namenda Code(s): F03.90 - UNSPECIFIED DEMENTIA WITHOUT BEHAVIORAL DISTURBANCE (5) COPD (chronic obstructive pulmonary disease) Assessment/Plan: -not in exacerbation -continue home regimen Code(s): J44.9 - CHRONIC OBSTRUCTIVE PULMONARY DISEASE, UNSPECIFIED (6) Diabetes mellitus Assessment/Plan: -diabetic diet -FSBS and SSI Code(s): E11.9 - TYPE 2 DIABETES MELLITUS WITHOUT COMPLICATIONS (7) BPH (benign prostatic hyperplasia) Assessment/Plan: -continue tamsulosin Code(s): N40.0 - BENIGN PROSTATIC HYPERPLASIA WITHOUT LOWER URINRY TRACT SYMP (8) GT -minor increase in creatinine -monitor -encourage oral hydration
--- NOTE | 2017-04-04 13:28 | PN ---
Progress Note, Physician History of Present Illness: PULMONARY ALERT,NAD, OOB - CHAIR,-SOB - Current Medication List Current Medications: Active Medications Acetaminophen (Tylenol -) 650 mg PO Q4H PRN PRN Reason: FEVER OR PAIN Last Admin: 04/03/17 18:50 Dose: 650 mg Albuterol/Ipratropium (Duoneb -) 1 amp NEB Q4HPO [facility] Last Admin: 04/04/17 09:40 Dose: 1 amp Enoxaparin Sodium (Lovenox -) 40 mg SQ DAILY [facility] Last Admin: 04/04/17 09:13 Dose: 40 mg Piperacillin Sod/Tazobactam Sod (Zosyn 3.375gm Ivpb (Pre-Docked)) 50 mls @ 100 mls/hr IVPB Q8H-IV RODNEY PRN Reason: Protocol Last Admin: 04/04/17 09:13 Dose: 100 mls/hr Insulin Aspart (Novolog Vial Sliding Scale -) 1 vial SQ ACHS [facility]NEY PRN Reason: Protocol Last Admin: 04/04/17 11:28 Dose: 4 units Lactobacillus Acidophilus (Bacid -) 1 tab PO DAILY [facility] Last Admin: 04/04/17 09:13 Dose: 1 tab Memantine (Namenda -) 10 mg PO DAILY [facility] Last Admin: 04/04/17 09:13 Dose: 10 mg Ondansetron HCl (Zofran Injection) 4 mg IVPB Q6H PRN PRN Reason: NAUSEA Polyethylene Glycol (Miralax (For Daily Use) -) 17 gm PO DAILY [facility] Last Admin: 04/04/17 09:16 Dose: 17 gm Silver Sulfadiazine (Silvadene -) 1 applic TP BID [facility] Last Admin: 04/04/17 09:17 Dose: 1 applic Tamsulosin HCl (Flomax -) 0.4 mg PO DAILY [facility] Last Admin: 04/04/17 09:13 Dose: 0.4 mg - Objective Vital Signs: Vital Signs Temperature 97.6 F 04/04/17 08:11 Pulse Rate 78 04/04/17 09:40 Respiratory Rate 20 04/04/17 08:11 Blood Pressure 109/51 04/04/17 08:11 O2 Sat by Pulse Oximetry (%) 97 04/04/17 09:40 Constitutional: Yes: Well Nourished, Calm Eyes: Yes: WNL HENT: Yes: WNL Neck: Yes: Supple Cardiovascular: Yes: Regular Rate and Rhythm, S1, S2 Respiratory: Yes: Diminished (DIMINISHED BS LEFT LEFT BASE) Gastrointestinal: Yes: Normal Bowel Sounds, Soft Extremities: Yes: WNL Edema: No Labs: CBC, BMP 04/04/17 06:40 04/04/17 06:40 INR, PTT INR 1.44 (0.82-1.09) H 04/02/17 06:00 - ....Imaging Cat Scan: Report Reviewed, Image Reviewed (rul nodule,left pleural effusion , compressive atelectasis) Assessment/Plan A/P Pneumonia Parapneumonic Pleural Effusion uncomplicated COPD DM BPH - cytology negative malignant cell - continue antibiotics, can likely de-escalate - inhaled bronchodilators as needed - DVT prophylaxis - f/u chest ct 4-6 wks to document resolution of infiltrate,effusion DR STILL Problem List - Problems (1) COPD (chronic obstructive pulmonary disease) Code(s): J44.9 - CHRONIC OBSTRUCTIVE PULMONARY DISEASE, UNSPECIFIED (2) Diabetes mellitus Code(s): E11.9 - TYPE 2 DIABETES MELLITUS WITHOUT COMPLICATIONS (3) HCAP (healthcare-associated pneumonia) Code(s): J18.9 - PNEUMONIA, UNSPECIFIED ORGANISM (4) Pleural effusion Code(s): J90 - PLEURAL EFFUSION, NOT ELSEWHERE CLASSIFIED
[2017-04-05] MEDS: PIPERACILLIN/TAZOB 3.375 GM 50 ML IVPB SCH ×3 (01:32→17:40)
[2017-04-05] MEDS: ALBUTEROL SO4 2.5/IPRATROPIUM 0.5 INH SOL 3 ML VIAL.NEB. NEB SCH ×6 (02:00→22:47)
[2017-04-05] MEDS: INSULIN SLIDING SCALE (NOVOLOG) 1 VIAL SQ SCH ×4 (06:03→21:29)
[2017-04-05 08:25] LABS: BASOPHIL 0.3 % (0-2.0); EOSINOPHIL 1.6 % (0-4.5); MCH 31.8 pg (25.7-33.7); MCHC 33.7 g/dl (32.0-35.9); MEAN CELL VOLUME 94.3 fl (80-96); MEAN PLT VOLUME 7.5 fl (7.5-11.1); NEUTROPHILS 70.1 % (42.8-82.8); PLATELET COUNT 207 K/MM3 (134-434); RDW 14.9 % (11.9-15.9)
[2017-04-05] MEDS: ENOXAPARIN NA (PORCINE) 40 MG/0.4 ML DISP.SYRIN SQ SCH (09:23)
[2017-04-05] MEDS: LACTOBACILLUS ACIDOPHILUS 1 EACH TAB (FP) PO SCH (09:24)
[2017-04-05] MEDS: MEMANTINE HCL 10 MG TABLET (FP) PO SCH (09:24)
[2017-04-05] MEDS: TAMSULOSIN HCL 0.4 MG CAP.ER.24H (FP) PO SCH (09:24)
[2017-04-05] MEDS: POLYETHYLENE GLYCOL 3350 119 GM BTL PO SCH (09:24)
--- NOTE | 2017-04-05 09:51 | PN ---
Progress Note, Physician History of Present Illness: patient stable doing much better - Current Medication List Current Medications: Active Medications Acetaminophen (Tylenol -) 650 mg PO Q4H PRN PRN Reason: FEVER OR PAIN Last Admin: 04/03/17 18:50 Dose: 650 mg Albuterol/Ipratropium (Duoneb -) 1 amp NEB Q4HPO [facility] Last Admin: 04/05/17 06:18 Dose: 1 amp Enoxaparin Sodium (Lovenox -) 40 mg SQ DAILY [facility] Last Admin: 04/05/17 09:23 Dose: 40 mg Piperacillin Sod/Tazobactam Sod (Zosyn 3.375gm Ivpb (Pre-Docked)) 50 mls @ 100 mls/hr IVPB Q8H-IV RODNEY PRN Reason: Protocol Last Admin: 04/05/17 09:24 Dose: 100 mls/hr Insulin Aspart (Novolog Vial Sliding Scale -) 1 vial SQ ACHS [facility]ODNEY PRN Reason: Protocol Last Admin: 04/05/17 06:03 Dose: Not Given Lactobacillus Acidophilus (Bacid -) 1 tab PO DAILY [facility] Last Admin: 04/05/17 09:24 Dose: 1 tab Memantine (Namenda -) 10 mg PO DAILY [facility] Last Admin: 04/05/17 09:24 Dose: 10 mg Ondansetron HCl (Zofran Injection) 4 mg IVPB Q6H PRN PRN Reason: NAUSEA Polyethylene Glycol (Miralax (For Daily Use) -) 17 gm PO DAILY [facility] Last Admin: 04/05/17 09:24 Dose: 17 gm Silver Sulfadiazine (Silvadene -) 1 applic TP BID [facility] Last Admin: 04/04/17 21:45 Dose: 1 applic Tamsulosin HCl (Flomax -) 0.4 mg PO DAILY [facility] Last Admin: 04/05/17 09:24 Dose: 0.4 mg - Objective Vital Signs: Vital Signs Temperature 97.9 F 04/05/17 05:38 Pulse Rate 66 04/05/17 05:38 Respiratory Rate 18 04/05/17 05:38 Blood Pressure 95/55 04/05/17 05:38 O2 Sat by Pulse Oximetry (%) 93 L 04/04/17 20:35 Constitutional: Yes: No Distress, Calm Cardiovascular: Yes: Regular Rate and Rhythm Respiratory: Yes: Regular, Poor Air Entry Gastrointestinal: Yes: Normal Bowel Sounds, Soft Musculoskeletal: Yes: Other Extremities: Yes: Other Neurological: Yes: Alert, Oriented Psychiatric: Yes: Alert, Oriented Labs: CBC, BMP 04/05/17 07:10 INR, PTT INR 1.44 (0.82-1.09) H 04/02/17 06:00 Assessment/Plan Problem List - Problems (1) HCAP (healthcare-associated pneumonia) Code(s): J18.9 - PNEUMONIA, UNSPECIFIED ORGANISM (2) Pleural effusion Code(s): J90 - PLEURAL EFFUSION, NOT ELSEWHERE CLASSIFIED (3) Abdominal pain Code(s): R10.9 - UNSPECIFIED ABDOMINAL PAIN Qualifiers: Abdominal location: right lower quadrant Qualified Code(s): R10.31 - Right lower quadrant pain (4) Dementia Code(s): F03.90 - UNSPECIFIED DEMENTIA WITHOUT BEHAVIORAL DISTURBANCE (5) COPD (chronic obstructive pulmonary disease) Code(s): J44.9 - CHRONIC OBSTRUCTIVE PULMONARY DISEASE, UNSPECIFIED (6) Diabetes mellitus Code(s): E11.9 - TYPE 2 DIABETES MELLITUS WITHOUT COMPLICATIONS (7) BPH (benign prostatic hyperplasia) Code(s): N40.0 - BENIGN PROSTATIC HYPERPLASIA WITHOUT LOWER URINRY TRACT SYMP 8 gram positive bacteremia adenike plan patient repeat blood cx negative now patient doing much better still with loculated pleural effusion i think patient might need vats
[2017-04-05] MEDS: SILVER SULFADIAZINE 1% TOP CREAM 50 GM JAR TP SCH ×2 (10:00→21:29)
[2017-04-05 10:07] LABS: CALCIUM 7.8 mg/dL (8.5-10.1); COCKROFT - GAULT 66.57; CREATININE 1.2 mg/dL (0.7-1.3); MAGNESIUM 2.6 mg/dL (1.8-2.4); PHOSPHOROUS 3.7 mg/dL (2.5-4.9)
--- NOTE | 2017-04-05 12:55 | PN ---
Progress Note (short form) - Note Progress Note: No acute events overnight. NAD. NO CP or SOB. Intake & Output 04/02/17 04/03/17 04/04/17 04/05/17 23:59 23:59 23:59 23:59 Intake Total 1005 200 150 600 Balance 1005 200 150 600 Last Vital Signs Temp Pulse Resp BP Pulse Ox 97.9 F 66 18 95/55 93 L 04/05/17 05:38 04/05/17 05:38 04/05/17 05:38 04/05/17 05:38 04/04/17 20:35 Active Medications Acetaminophen (Tylenol -) 650 mg PO Q4H PRN PRN Reason: FEVER OR PAIN Last Admin: 04/03/17 18:50 Dose: 650 mg Albuterol/Ipratropium (Duoneb -) 1 amp NEB Q4HPO [facility] Last Admin: 04/05/17 10:30 Dose: 1 amp Enoxaparin Sodium (Lovenox -) 40 mg SQ DAILY [facility] Last Admin: 04/05/17 09:23 Dose: 40 mg Piperacillin Sod/Tazobactam Sod (Zosyn 3.375gm Ivpb (Pre-Docked)) 50 mls @ 100 mls/hr IVPB Q8H-IV RODNEY PRN Reason: Protocol Last Admin: 04/05/17 09:24 Dose: 100 mls/hr Insulin Aspart (Novolog Vial Sliding Scale -) 1 vial SQ ACHS RODNEY PRN Reason: Protocol Last Admin: 04/05/17 12:39 Dose: Not Given Lactobacillus Acidophilus (Bacid -) 1 tab PO DAILY [facility] Last Admin: 04/05/17 09:24 Dose: 1 tab Memantine (Namenda -) 10 mg PO DAILY [facility] Last Admin: 04/05/17 09:24 Dose: 10 mg Ondansetron HCl (Zofran Injection) 4 mg IVPB Q6H PRN PRN Reason: NAUSEA Polyethylene Glycol (Miralax (For Daily Use) -) 17 gm PO DAILY [facility] Last Admin: 04/05/17 09:24 Dose: 17 gm Silver Sulfadiazine (Silvadene -) 1 applic TP BID [facility] Last Admin: 04/04/17 21:45 Dose: 1 applic Tamsulosin HCl (Flomax -) 0.4 mg PO DAILY [facility] Last Admin: 04/05/17 09:24 Dose: 0.4 mg Constitutional: Yes: NAD Eyes: Yes: WNL HENT: Yes: WNL Neck: Yes: Supple Cardiovascular: Yes: Regular Rate and Rhythm, S1, S2 Respiratory: Yes: Diminished at the bases Gastrointestinal: Yes: Normal Bowel Sounds, Soft Extremities: Yes: WNL Edema: No Labs: Laboratory Results - last 24 hr 04/04/17 04/04/17 04/05/17 16:46 21:12 05:39 WBC RBC Hgb Hct MCV MCHC RDW Plt Count MPV Neutrophils % Lymphocytes % Monocytes % Eosinophils % Basophils % Sodium Potassium Chloride Carbon Dioxide Anion Gap BUN Creatinine POC Glucometer 116 117 121 Random Glucose Calcium Phosphorus Magnesium 04/05/17 04/05/17 04/05/17 07:10 07:10 12:16 WBC 4.0 RBC 3.87 L Hgb 12.3 Hct 36.5 MCV 94.3 MCHC 33.7 RDW 14.9 Plt Count 207 MPV 7.5 Neutrophils % 70.1 Lymphocytes % 20.4 Monocytes % 7.6 Eosinophils % 1.6 Basophils % 0.3 Sodium 140 Potassium 4.1 Chloride 106 Carbon Dioxide 23 Anion Gap 11 BUN 27 H Creatinine 1.2 POC Glucometer 150 Random Glucose 133 H Calcium 7.8 L Phosphorus 3.7 Magnesium 2.6 H Problem List - Problems (1) COPD (chronic obstructive pulmonary disease) Code(s): J44.9 - CHRONIC OBSTRUCTIVE PULMONARY DISEASE, UNSPECIFIED (2) Diabetes mellitus Code(s): E11.9 - TYPE 2 DIABETES MELLITUS WITHOUT COMPLICATIONS (3) HCAP (healthcare-associated pneumonia) Code(s): J18.9 - PNEUMONIA, UNSPECIFIED ORGANISM (4) Pleural effusion Code(s): J90 - PLEURAL EFFUSION, NOT ELSEWHERE CLASSIFIED Assessment/Plan Pneumonia Parapneumonic Pleural Effusion uncomplicated COPD DM BPH - cytology negative malignant cell - continue antibiotics, can likely de-escalate - inhaled bronchodilators as needed - DVT prophylaxis - F/U chest ct 4-6 wks to document resolution of infiltrate,effusion Dr Sparrow
--- NOTE | 2017-04-05 13:23 | PN ---
Progress Note (short form) - Note Progress Note: No fever No SOB No chest pain O/E Vital Signs Period Temp Pulse Resp BP Sys/Gama Pulse Ox Last 24 Hr 97.3 F-98.5 F 66-77 17-20 95-113/52-57 93 Heart regular Lungs few b/l ll rales+ Abd soft Ext no edema Current Medications Acetaminophen (Tylenol -) 650 mg PO Q4H PRN PRN Reason: FEVER OR PAIN Last Admin: 04/03/17 18:50 Dose: 650 mg Albuterol/Ipratropium (Duoneb -) 1 amp NEB Q4HPO [facility] Last Admin: 04/05/17 10:30 Dose: 1 amp Enoxaparin Sodium (Lovenox -) 40 mg SQ DAILY [facility] Last Admin: 04/05/17 09:23 Dose: 40 mg Piperacillin Sod/Tazobactam Sod (Zosyn 3.375gm Ivpb (Pre-Docked)) 50 mls @ 100 mls/hr IVPB Q8H-IV R[facility] PRN Reason: Protocol Last Admin: 04/05/17 09:24 Dose: 100 mls/hr Insulin Aspart (Novolog Vial Sliding Scale -) 1 vial SQ ACHS [facility] PRN Reason: Protocol Last Admin: 04/05/17 12:39 Dose: Not Given Lactobacillus Acidophilus (Bacid -) 1 tab PO DAILY [facility] Last Admin: 04/05/17 09:24 Dose: 1 tab Memantine (Namenda -) 10 mg PO DAILY [facility] Last Admin: 04/05/17 09:24 Dose: 10 mg Ondansetron HCl (Zofran Injection) 4 mg IVPB Q6H PRN PRN Reason: NAUSEA Polyethylene Glycol (Miralax (For Daily Use) -) 17 gm PO DAILY [facility] Last Admin: 04/05/17 09:24 Dose: 17 gm Silver Sulfadiazine (Silvadene -) 1 applic TP BID [facility] Last Admin: 04/04/17 21:45 Dose: 1 applic Tamsulosin HCl (Flomax -) 0.4 mg PO DAILY [facility] Last Admin: 04/05/17 09:24 Dose: 0.4 mg Laboratory Results - last 24 hr 04/04/17 04/04/17 04/05/17 16:46 21:12 05:39 WBC RBC Hgb Hct MCV MCHC RDW Plt Count MPV Neutrophils % Lymphocytes % Monocytes % Eosinophils % Basophils % Sodium Potassium Chloride Carbon Dioxide Anion Gap BUN Creatinine POC Glucometer 116 117 121 Random Glucose Calcium Phosphorus Magnesium 04/05/17 04/05/17 04/05/17 07:10 07:10 12:16 WBC 4.0 RBC 3.87 L Hgb 12.3 Hct 36.5 MCV 94.3 MCHC 33.7 RDW 14.9 Plt Count 207 MPV 7.5 Neutrophils % 70.1 Lymphocytes % 20.4 Monocytes % 7.6 Eosinophils % 1.6 Basophils % 0.3 Sodium 140 Potassium 4.1 Chloride 106 Carbon Dioxide 23 Anion Gap 11 BUN 27 H Creatinine 1.2 POC Glucometer 150 Random Glucose 133 H Calcium 7.8 L Phosphorus 3.7 Magnesium 2.6 H A&P Assessment/Plan (1) Septicemia Assessment/Plan: -cultures positive for streptococcus pneumonia -continue zosyn Code(s): J18.9 - PNEUMONIA, UNSPECIFIED ORGANISM (2) Pleural effusion Assessment/Plan: -CT scan reviewed -loculated pleural effusion -pulmonary f/u Code(s): J90 - PLEURAL EFFUSION, NOT ELSEWHERE CLASSIFIED (3) Abdominal pain Assessment/Plan: -resolved Code(s): R10.9 - UNSPECIFIED ABDOMINAL PAIN Qualifiers: Abdominal location: right lower quadrant Qualified Code(s): R10.31 - Right lower quadrant pain (4) Dementia Assessment/Plan: -continue namenda Code(s): F03.90 - UNSPECIFIED DEMENTIA WITHOUT BEHAVIORAL DISTURBANCE (5) COPD (chronic obstructive pulmonary disease) Assessment/Plan: -not in exacerbation -continue home regimen Code(s): J44.9 - CHRONIC OBSTRUCTIVE PULMONARY DISEASE, UNSPECIFIED (6) Diabetes mellitus Assessment/Plan: -diabetic diet -FSBS and SSI Code(s): E11.9 - TYPE 2 DIABETES MELLITUS WITHOUT COMPLICATIONS (7) BPH (benign prostatic hyperplasia) Assessment/Plan: -continue tamsulosin Code(s): N40.0 - BENIGN PROSTATIC HYPERPLASIA WITHOUT LOWER URINRY TRACT SYMP (8) GT -minor increase in creatinine -monitor -encourage oral hydration
[2017-04-05] MEDS ORDERED: ALBUTEROL SO4 2.5/IPRATROPIUM 0.5 INH SOL 3 ML VIAL.NEB. NEB ONE (22:46)
[2017-04-06] MEDS: PIPERACILLIN/TAZOB 3.375 GM 50 ML IVPB SCH ×3 (02:52→18:24)
[2017-04-06] MEDS: INSULIN SLIDING SCALE (NOVOLOG) 1 VIAL SQ SCH ×4 (06:32→21:55)
[2017-04-06] MEDS: ENOXAPARIN NA (PORCINE) 40 MG/0.4 ML DISP.SYRIN SQ SCH (11:02)
--- NOTE | 2017-04-06 11:02 | PN ---
Progress Note, Physician History of Present Illness: patient stable doing well no new issues - Current Medication List Current Medications: Active Medications Acetaminophen (Tylenol -) 650 mg PO Q4H PRN PRN Reason: FEVER OR PAIN Last Admin: 04/03/17 18:50 Dose: 650 mg Enoxaparin Sodium (Lovenox -) 40 mg SQ DAILY [facility] Last Admin: 04/05/17 09:23 Dose: 40 mg Piperacillin Sod/Tazobactam Sod (Zosyn 3.375gm Ivpb (Pre-Docked)) 50 mls @ 100 mls/hr IVPB Q8H-IV [facility] PRN Reason: Protocol Last Admin: 04/06/17 02:52 Dose: 100 mls/hr Insulin Aspart (Novolog Vial Sliding Scale -) 1 vial SQ ACHS [facility] PRN Reason: Protocol Last Admin: 04/06/17 06:32 Dose: Not Given Lactobacillus Acidophilus (Bacid -) 1 tab PO DAILY [facility] Last Admin: 04/05/17 09:24 Dose: 1 tab Memantine (Namenda -) 10 mg PO DAILY [facility] Last Admin: 04/05/17 09:24 Dose: 10 mg Ondansetron HCl (Zofran Injection) 4 mg IVPB Q6H PRN PRN Reason: NAUSEA Polyethylene Glycol (Miralax (For Daily Use) -) 17 gm PO DAILY [facility] Last Admin: 04/05/17 09:24 Dose: 17 gm Silver Sulfadiazine (Silvadene -) 1 applic TP BID [facility] Last Admin: 04/05/17 21:29 Dose: 1 applic Tamsulosin HCl (Flomax -) 0.4 mg PO DAILY [facility] Last Admin: 04/05/17 09:24 Dose: 0.4 mg - Objective Vital Signs: Vital Signs Temperature 97.8 F 04/06/17 06:00 Pulse Rate 70 04/06/17 06:00 Respiratory Rate 18 04/06/17 06:00 Blood Pressure 100/57 04/06/17 06:00 O2 Sat by Pulse Oximetry (%) 99 04/05/17 21:00 Constitutional: Yes: No Distress, Calm Cardiovascular: Yes: Regular Rate and Rhythm Respiratory: Yes: Poor Air Entry (bases), Rhonchi Gastrointestinal: Yes: Normal Bowel Sounds, Soft Musculoskeletal: Yes: WNL Extremities: Yes: Other Neurological: Yes: Alert, Oriented Psychiatric: Yes: Alert Labs: CBC, BMP 04/05/17 07:10 04/05/17 07:10 INR, PTT INR 1.44 (0.82-1.09) H 04/02/17 06:00 Assessment/Plan Problem List - Problems (1) HCAP (healthcare-associated pneumonia) Code(s): J18.9 - PNEUMONIA, UNSPECIFIED ORGANISM (2) Pleural effusion Code(s): J90 - PLEURAL EFFUSION, NOT ELSEWHERE CLASSIFIED (3) Abdominal pain Code(s): R10.9 - UNSPECIFIED ABDOMINAL PAIN Qualifiers: Abdominal location: right lower quadrant Qualified Code(s): R10.31 - Right lower quadrant pain (4) Dementia Code(s): F03.90 - UNSPECIFIED DEMENTIA WITHOUT BEHAVIORAL DISTURBANCE (5) COPD (chronic obstructive pulmonary disease) Code(s): J44.9 - CHRONIC OBSTRUCTIVE PULMONARY DISEASE, UNSPECIFIED (6) Diabetes mellitus Code(s): E11.9 - TYPE 2 DIABETES MELLITUS WITHOUT COMPLICATIONS (7) BPH (benign prostatic hyperplasia) Code(s): N40.0 - BENIGN PROSTATIC HYPERPLASIA WITHOUT LOWER URINRY TRACT SYMP 8 gram positive bacteremia adenike plan stable need plan about the loculated collection
[2017-04-06] MEDS: MEMANTINE HCL 10 MG TABLET (FP) PO SCH (11:03)
[2017-04-06] MEDS: LACTOBACILLUS ACIDOPHILUS 1 EACH TAB (FP) PO SCH (11:03)
[2017-04-06] MEDS: POLYETHYLENE GLYCOL 3350 119 GM BTL PO SCH (11:03)
[2017-04-06] MEDS: TAMSULOSIN HCL 0.4 MG CAP.ER.24H (FP) PO SCH (11:03)
[2017-04-06] MEDS: SILVER SULFADIAZINE 1% TOP CREAM 50 GM JAR TP SCH ×2 (11:04→21:53)
--- NOTE | 2017-04-06 13:41 | PN ---
Progress Note (short form) - Note Progress Note: Continues to feel better No fever O/E Vital Signs Period Temp Pulse Resp BP Sys/Gama Pulse Ox Last 24 Hr 97.6 F-99.4 F 70-81 16-18 100-132/52-62 99 Heart regular' Lungs clear Abd soft 'Ext no edema Current Medications Acetaminophen (Tylenol -) 650 mg PO Q4H PRN PRN Reason: FEVER OR PAIN Last Admin: 04/03/17 18:50 Dose: 650 mg Enoxaparin Sodium (Lovenox -) 40 mg SQ DAILY [facility] Last Admin: 04/06/17 11:02 Dose: 40 mg Piperacillin Sod/Tazobactam Sod (Zosyn 3.375gm Ivpb (Pre-Docked)) 50 mls @ 100 mls/hr IVPB Q8H-IV [facility] PRN Reason: Protocol Last Admin: 04/06/17 11:02 Dose: 100 mls/hr Insulin Aspart (Novolog Vial Sliding Scale -) 1 vial SQ ACHS [facility]NEY PRN Reason: Protocol Last Admin: 04/06/17 11:06 Dose: 4 units Lactobacillus Acidophilus (Bacid -) 1 tab PO DAILY [facility] Last Admin: 04/06/17 11:03 Dose: 1 tab Memantine (Namenda -) 10 mg PO DAILY [facility] Last Admin: 04/06/17 11:03 Dose: 10 mg Ondansetron HCl (Zofran Injection) 4 mg IVPB Q6H PRN PRN Reason: NAUSEA Polyethylene Glycol (Miralax (For Daily Use) -) 17 gm PO DAILY [facility] Last Admin: 04/06/17 11:03 Dose: 17 gm Silver Sulfadiazine (Silvadene -) 1 applic TP BID [facility] Last Admin: 04/06/17 11:04 Dose: 1 applic Tamsulosin HCl (Flomax -) 0.4 mg PO DAILY [facility] Last Admin: 04/06/17 11:03 Dose: 0.4 mg Laboratory Results - last 24 hr 04/05/17 04/05/17 04/06/17 17:43 21:25 05:18 POC Glucometer 121 115 116 04/06/17 11:05 POC Glucometer 225 A&P A&P Assessment/Plan (1) Septicemia Assessment/Plan: -cultures positive for streptococcus pneumonia, Resolving and doing well -continue zosyn Code(s): J18.9 - PNEUMONIA, UNSPECIFIED ORGANISM (2) Pleural effusion Assessment/Plan: -CT scan reviewed -loculated pleural effusion -pulmonary f/u Code(s): J90 - PLEURAL EFFUSION, NOT ELSEWHERE CLASSIFIED (3) Abdominal pain Assessment/Plan: -resolved Code(s): R10.9 - UNSPECIFIED ABDOMINAL PAIN Qualifiers: Abdominal location: right lower quadrant Qualified Code(s): R10.31 - Right lower quadrant pain (4) Dementia Assessment/Plan: -continue namenda Code(s): F03.90 - UNSPECIFIED DEMENTIA WITHOUT BEHAVIORAL DISTURBANCE (5) COPD (chronic obstructive pulmonary disease) Assessment/Plan: -not in exacerbation -continue home regimen Code(s): J44.9 - CHRONIC OBSTRUCTIVE PULMONARY DISEASE, UNSPECIFIED (6) Diabetes mellitus Assessment/Plan: -diabetic diet -FSBS and SSI Code(s): E11.9 - TYPE 2 DIABETES MELLITUS WITHOUT COMPLICATIONS (7) BPH (benign prostatic hyperplasia) Assessment/Plan: -continue tamsulosin Code(s): N40.0 - BENIGN PROSTATIC HYPERPLASIA WITHOUT LOWER URINRY TRACT SYMP (8) GT -minor increase in creatinine -monitor -encourage oral hydration
--- NOTE | 2017-04-06 14:57 | PN ---
Progress Note (short form) - Note Progress Note: No acute events overnight. NAD. No CP or SOB. Intake & Output 04/03/17 04/04/17 04/05/17 04/06/17 23:59 23:59 23:59 23:59 Intake Total 200 150 800 Balance 200 150 800 Last Vital Signs Temp Pulse Resp BP Pulse Ox 98.9 F 77 17 122/57 99 04/06/17 14:14 04/06/17 14:14 04/06/17 14:14 04/06/17 14:14 04/05/17 21:00 Active Medications Acetaminophen (Tylenol -) 650 mg PO Q4H PRN PRN Reason: FEVER OR PAIN Last Admin: 04/03/17 18:50 Dose: 650 mg Enoxaparin Sodium (Lovenox -) 40 mg SQ DAILY [facility] Last Admin: 04/06/17 11:02 Dose: 40 mg Piperacillin Sod/Tazobactam Sod (Zosyn 3.375gm Ivpb (Pre-Docked)) 50 mls @ 100 mls/hr IVPB Q8H-IV RODNEY PRN Reason: Protocol Last Admin: 04/06/17 11:02 Dose: 100 mls/hr Insulin Aspart (Novolog Vial Sliding Scale -) 1 vial SQ ACHS RODNEY PRN Reason: Protocol Last Admin: 04/06/17 11:06 Dose: 4 units Lactobacillus Acidophilus (Bacid -) 1 tab PO DAILY [facility] Last Admin: 04/06/17 11:03 Dose: 1 tab Memantine (Namenda -) 10 mg PO DAILY [facility] Last Admin: 04/06/17 11:03 Dose: 10 mg Ondansetron HCl (Zofran Injection) 4 mg IVPB Q6H PRN PRN Reason: NAUSEA Polyethylene Glycol (Miralax (For Daily Use) -) 17 gm PO DAILY [facility] Last Admin: 04/06/17 11:03 Dose: 17 gm Silver Sulfadiazine (Silvadene -) 1 applic TP BID [facility] Last Admin: 04/06/17 11:04 Dose: 1 applic Tamsulosin HCl (Flomax -) 0.4 mg PO DAILY [facility] Last Admin: 04/06/17 11:03 Dose: 0.4 mg Constitutional: Yes: NAD Eyes: Yes: WNL HENT: Yes: WNL Neck: Yes: Supple Cardiovascular: Yes: Regular Rate and Rhythm, S1, S2 Respiratory: Yes: Diminished at the bases Gastrointestinal: Yes: Normal Bowel Sounds, Soft Extremities: Yes: WNL Edema: No Labs: Laboratory Results - last 24 hr 04/05/17 04/05/17 04/06/17 17:43 21:25 05:18 POC Glucometer 121 115 116 04/06/17 11:05 POC Glucometer 225 Problem List - Problems (1) COPD (chronic obstructive pulmonary disease) Code(s): J44.9 - CHRONIC OBSTRUCTIVE PULMONARY DISEASE, UNSPECIFIED (2) Diabetes mellitus Code(s): E11.9 - TYPE 2 DIABETES MELLITUS WITHOUT COMPLICATIONS (3) HCAP (healthcare-associated pneumonia) Code(s): J18.9 - PNEUMONIA, UNSPECIFIED ORGANISM (4) Pleural effusion Code(s): J90 - PLEURAL EFFUSION, NOT ELSEWHERE CLASSIFIED Assessment/Plan Pneumonia Parapneumonic Pleural Effusion uncomplicated COPD DM BPH - cytology negative for malignant cell - continue antibiotics, can likely de-escalate - inhaled bronchodilators as needed - DVT prophylaxis - F/U chest ct 4-6 wks to document resolution of infiltrate,effusion Dr Sparrow
[2017-04-06] MEDS ORDERED: PT OWN MED DRAWER 7, Y5N ONE (21:28)
[2017-04-06] MEDS ORDERED: INSULIN (NOVOLOG) ASPART 100 UNITS/ML 10ML VIAL ONE (21:28)
[2017-04-07] MEDS: PIPERACILLIN/TAZOB 3.375 GM 50 ML IVPB SCH ×3 (03:27→18:33)
[2017-04-07] MEDS: INSULIN SLIDING SCALE (NOVOLOG) 1 VIAL SQ SCH ×4 (06:52→22:30)
[2017-04-07] MEDS: MEMANTINE HCL 10 MG TABLET (FP) PO SCH (10:12)
[2017-04-07] MEDS: TAMSULOSIN HCL 0.4 MG CAP.ER.24H (FP) PO SCH (10:12)
[2017-04-07] MEDS: POLYETHYLENE GLYCOL 3350 119 GM BTL PO SCH (10:12)
[2017-04-07] MEDS: LACTOBACILLUS ACIDOPHILUS 1 EACH TAB (FP) PO SCH (10:12)
[2017-04-07] MEDS: ENOXAPARIN NA (PORCINE) 40 MG/0.4 ML DISP.SYRIN SQ SCH (10:12)
[2017-04-07] MEDS: SILVER SULFADIAZINE 1% TOP CREAM 50 GM JAR TP SCH ×2 (10:36→22:31)
--- NOTE | 2017-04-07 11:44 | PN ---
Progress Note (short form) - Note Progress Note: PULMONARY AWAKE/ALERT VSS/AFEBRILE ANICTERIC LEFT BASE DIMINISHED BREATH SOUNDS S1S2 BS+ LESS EDEMA LABS/MEDS/NOTES/IMAGING Pneumonia Parapneumonic Pleural Effusion uncomplicated COPD DM BPH - cytology negative for malignant cell - continue antibiotics, - inhaled bronchodilators prn - DVT prophylaxis - F/U chest ct 4-6 wks to document resolution of infiltrate,effusion Milana ALBERTS MD
--- NOTE | 2017-04-07 14:39 | PN ---
Progress Note (short form) - Note Progress Note: No fever Cough is less O/E Vital Signs Period Temp Pulse Resp BP Sys/Gama Pulse Ox Last 24 Hr 98.0 F-98.5 F 56- 97-149/ 95-99 Heart regular Lungs clear Abd soft Ext no edema Current Medications Acetaminophen (Tylenol -) 650 mg PO Q4H PRN PRN Reason: FEVER OR PAIN Last Admin: 04/03/17 18:50 Dose: 650 mg Enoxaparin Sodium (Lovenox -) 40 mg SQ DAILY [facility] Last Admin: 04/07/17 10:12 Dose: 40 mg Piperacillin Sod/Tazobactam Sod (Zosyn 3.375gm Ivpb (Pre-Docked)) 50 mls @ 100 mls/hr IVPB Q8H-IV RODNEY PRN Reason: Protocol Last Admin: 04/07/17 10:12 Dose: 100 mls/hr Insulin Aspart (Novolog Vial Sliding Scale -) 1 vial SQ ACHS RODNEY PRN Reason: Protocol Last Admin: 04/07/17 11:26 Dose: Not Given Lactobacillus Acidophilus (Bacid -) 1 tab PO DAILY [facility] Last Admin: 04/07/17 10:12 Dose: 1 tab Memantine (Namenda -) 10 mg PO DAILY [facility] Last Admin: 04/07/17 10:12 Dose: 10 mg Ondansetron HCl (Zofran Injection) 4 mg IVPB Q6H PRN PRN Reason: NAUSEA Polyethylene Glycol (Miralax (For Daily Use) -) 17 gm PO DAILY [facility] Last Admin: 04/07/17 10:12 Dose: 17 gm Silver Sulfadiazine (Silvadene -) 1 applic TP BID [facility] Last Admin: 04/07/17 10:36 Dose: 1 applic Tamsulosin HCl (Flomax -) 0.4 mg PO DAILY [facility] Last Admin: 04/07/17 10:12 Dose: 0.4 mg Vital Signs Period Temp Pulse Resp BP Sys/Gama Pulse Ox Last 24 Hr 98.0 F-98.5 F 56-- 97-149/-64 95-99 A&P Assessment/Plan (1) Septicemia Assessment/Plan: -cultures positive for streptococcus pneumonia, Resolving and doing well -continue present care, OOB and PT Code(s): J18.9 - PNEUMONIA, UNSPECIFIED ORGANISM (2) Pleural effusion Assessment/Plan: -CT scan reviewed -loculated pleural effusion -pulmonary f/u Code(s): J90 - PLEURAL EFFUSION, NOT ELSEWHERE CLASSIFIED (3) Abdominal pain Assessment/Plan: -resolved Code(s): R10.9 - UNSPECIFIED ABDOMINAL PAIN Qualifiers: Abdominal location: right lower quadrant Qualified Code(s): R10.31 - Right lower quadrant pain (4) Dementia Assessment/Plan: -continue namenda Code(s): F03.90 - UNSPECIFIED DEMENTIA WITHOUT BEHAVIORAL DISTURBANCE (5) COPD (chronic obstructive pulmonary disease) Assessment/Plan: -not in exacerbation -continue home regimen Code(s): J44.9 - CHRONIC OBSTRUCTIVE PULMONARY DISEASE, UNSPECIFIED (6) Diabetes mellitus Assessment/Plan: -diabetic diet -FSBS and SSI Code(s): E11.9 - TYPE 2 DIABETES MELLITUS WITHOUT COMPLICATIONS (7) BPH (benign prostatic hyperplasia) Assessment/Plan: -continue tamsulosin Code(s): N40.0 - BENIGN PROSTATIC HYPERPLASIA WITHOUT LOWER URINRY TRACT SYMP (8) GT -minor increase in creatinine -monitor -encourage oral hydration
--- NOTE | 2017-04-07 16:17 | PN ---
Progress Note, Physician History of Present Illness: patient stable doing well no new issues - Current Medication List Current Medications: Active Medications Acetaminophen (Tylenol -) 650 mg PO Q4H PRN PRN Reason: FEVER OR PAIN Last Admin: 04/03/17 18:50 Dose: 650 mg Enoxaparin Sodium (Lovenox -) 40 mg SQ DAILY [facility] Last Admin: 04/07/17 10:12 Dose: 40 mg Piperacillin Sod/Tazobactam Sod (Zosyn 3.375gm Ivpb (Pre-Docked)) 50 mls @ 100 mls/hr IVPB Q8H-IV RODNEY PRN Reason: Protocol Last Admin: 04/07/17 10:12 Dose: 100 mls/hr Insulin Aspart (Novolog Vial Sliding Scale -) 1 vial SQ ACHS RODNEY PRN Reason: Protocol Last Admin: 04/07/17 11:26 Dose: Not Given Lactobacillus Acidophilus (Bacid -) 1 tab PO DAILY [facility] Last Admin: 04/07/17 10:12 Dose: 1 tab Memantine (Namenda -) 10 mg PO DAILY [facility] Last Admin: 04/07/17 10:12 Dose: 10 mg Ondansetron HCl (Zofran Injection) 4 mg IVPB Q6H PRN PRN Reason: NAUSEA Polyethylene Glycol (Miralax (For Daily Use) -) 17 gm PO DAILY [facility] Last Admin: 04/07/17 10:12 Dose: 17 gm Silver Sulfadiazine (Silvadene -) 1 applic TP BID [facility] Last Admin: 04/07/17 10:36 Dose: 1 applic Tamsulosin HCl (Flomax -) 0.4 mg PO DAILY [facility] Last Admin: 04/07/17 10:12 Dose: 0.4 mg - Objective Vital Signs: Vital Signs Temperature 99 F 04/07/17 14:00 Pulse Rate 69 04/07/17 14:00 Respiratory Rate 18 04/07/17 14:00 Blood Pressure 105/51 04/07/17 14:00 O2 Sat by Pulse Oximetry (%) 95 04/07/17 10:00 Constitutional: Yes: No Distress, Calm Cardiovascular: Yes: Regular Rate and Rhythm Respiratory: Yes: Regular, Poor Air Entry Gastrointestinal: Yes: Normal Bowel Sounds, Soft Musculoskeletal: Yes: Other Extremities: Yes: Other Neurological: Yes: Alert, Oriented Psychiatric: Yes: Alert, Oriented Labs: CBC, BMP 04/05/17 07:10 04/05/17 07:10 INR, PTT INR 1.44 (0.82-1.09) H 04/02/17 06:00 Assessment/Plan Problem List - Problems (1) HCAP (healthcare-associated pneumonia) Code(s): J18.9 - PNEUMONIA, UNSPECIFIED ORGANISM (2) Pleural effusion Code(s): J90 - PLEURAL EFFUSION, NOT ELSEWHERE CLASSIFIED (3) Abdominal pain Code(s): R10.9 - UNSPECIFIED ABDOMINAL PAIN Qualifiers: Abdominal location: right lower quadrant Qualified Code(s): R10.31 - Right lower quadrant pain (4) Dementia Code(s): F03.90 - UNSPECIFIED DEMENTIA WITHOUT BEHAVIORAL DISTURBANCE (5) COPD (chronic obstructive pulmonary disease) Code(s): J44.9 - CHRONIC OBSTRUCTIVE PULMONARY DISEASE, UNSPECIFIED (6) Diabetes mellitus Code(s): E11.9 - TYPE 2 DIABETES MELLITUS WITHOUT COMPLICATIONS (7) BPH (benign prostatic hyperplasia) Code(s): N40.0 - BENIGN PROSTATIC HYPERPLASIA WITHOUT LOWER URINRY TRACT SYMP 8 gram positive bacteremia adenike plan stable patient can get imaging studies to see if the loculation hs resolved if still there needs vats
[2017-04-08] MEDS: PIPERACILLIN/TAZOB 3.375 GM 50 ML IVPB SCH ×3 (02:39→17:53)
[2017-04-08] MEDS: INSULIN SLIDING SCALE (NOVOLOG) 1 VIAL SQ SCH ×4 (06:19→21:58)
--- NOTE | 2017-04-08 10:27 | PN ---
Progress Note (short form) - Note Progress Note: Patient seen and examined. No acute event overnight. Afebrile. Denies chest pain, shortness of breath, palpitation or dizziness O/E Vital Signs Period Temp Pulse Resp BP Sys/Gama Pulse Ox Last 24 Hr 97.8 F-99 F 69-76 18-18 105-119/51-65 98 Heart regular Lungs clear Abd soft Ext no edema Current Medications Acetaminophen (Tylenol -) 650 mg PO Q4H PRN PRN Reason: FEVER OR PAIN Last Admin: 04/03/17 18:50 Dose: 650 mg Enoxaparin Sodium (Lovenox -) 40 mg SQ DAILY [facility] Last Admin: 04/07/17 10:12 Dose: 40 mg Piperacillin Sod/Tazobactam Sod (Zosyn 3.375gm Ivpb (Pre-Docked)) 50 mls @ 100 mls/hr IVPB Q8H-IV RODNEY PRN Reason: Protocol Last Admin: 04/08/17 02:39 Dose: 100 mls/hr Insulin Aspart (Novolog Vial Sliding Scale -) 1 vial SQ ACHS RODNEY PRN Reason: Protocol Last Admin: 04/08/17 06:19 Dose: Not Given Lactobacillus Acidophilus (Bacid -) 1 tab PO DAILY [facility] Last Admin: 04/07/17 10:12 Dose: 1 tab Memantine (Namenda -) 10 mg PO DAILY [facility] Last Admin: 04/07/17 10:12 Dose: 10 mg Ondansetron HCl (Zofran Injection) 4 mg IVPB Q6H PRN PRN Reason: NAUSEA Polyethylene Glycol (Miralax (For Daily Use) -) 17 gm PO DAILY [facility] Last Admin: 04/07/17 10:12 Dose: 17 gm Silver Sulfadiazine (Silvadene -) 1 applic TP BID [facility] Last Admin: 04/07/17 22:31 Dose: 1 applic Tamsulosin HCl (Flomax -) 0.4 mg PO DAILY [facility] Last Admin: 04/07/17 10:12 Dose: 0.4 mg CBC, BMP 04/05/17 07:10 04/05/17 07:10 Microbiology 04/04/17 07:09 Blood Culture - Preliminary Blood - Peripheral Venous NO GROWTH OBTAINED AFTER 96 HOURS, INCUBATION TO CONTINUE FOR 1 DAYS. 04/04/17 06:40 Blood Culture - Preliminary Blood - Peripheral Venous NO GROWTH OBTAINED AFTER 96 HOURS, INCUBATION TO CONTINUE FOR 1 DAYS. A&P Assessment/Plan (1) Septicemia Assessment/Plan: - Resolving -cultures positive for streptococcus pneumonia. -continue present care, OOB and PT Code(s): J18.9 - PNEUMONIA, UNSPECIFIED ORGANISM (2) Pleural effusion Assessment/Plan: -CT scan reviewed -Loculated pleural effusion -pulmonary f/u Code(s): J90 - PLEURAL EFFUSION, NOT ELSEWHERE CLASSIFIED (3) Abdominal pain Assessment/Plan: -resolved Code(s): R10.9 - UNSPECIFIED ABDOMINAL PAIN Qualifiers: Abdominal location: right lower quadrant Qualified Code(s): R10.31 - Right lower quadrant pain (4) Dementia Assessment/Plan: -continue namenda Code(s): F03.90 - UNSPECIFIED DEMENTIA WITHOUT BEHAVIORAL DISTURBANCE (5) COPD (chronic obstructive pulmonary disease) Assessment/Plan: -not in exacerbation -continue home regimen Code(s): J44.9 - CHRONIC OBSTRUCTIVE PULMONARY DISEASE, UNSPECIFIED (6) Diabetes mellitus Assessment/Plan: -diabetic diet -FSBS and SSI Code(s): E11.9 - TYPE 2 DIABETES MELLITUS WITHOUT COMPLICATIONS (7) BPH (benign prostatic hyperplasia) Assessment/Plan: -continue tamsulosin Code(s): N40.0 - BENIGN PROSTATIC HYPERPLASIA WITHOUT LOWER URINRY TRACT SYMP (8) GT - Increase PO fluid intake.
[2017-04-08] MEDS ORDERED: PT OWN MED DRAWER 7, Y5N ONE (10:40)
[2017-04-08] MEDS: TAMSULOSIN HCL 0.4 MG CAP.ER.24H (FP) PO SCH (10:43)
[2017-04-08] MEDS: ENOXAPARIN NA (PORCINE) 40 MG/0.4 ML DISP.SYRIN SQ SCH (10:43)
[2017-04-08] MEDS: LACTOBACILLUS ACIDOPHILUS 1 EACH TAB (FP) PO SCH (10:43)
[2017-04-08] MEDS: MEMANTINE HCL 10 MG TABLET (FP) PO SCH (10:44)
[2017-04-08] MEDS: POLYETHYLENE GLYCOL 3350 119 GM BTL PO SCH (10:49)
[2017-04-08] MEDS: SILVER SULFADIAZINE 1% TOP CREAM 50 GM JAR TP SCH ×2 (11:42→21:58)
--- NOTE | 2017-04-08 11:47 | PN ---
Progress Note, Physician History of Present Illness: PULMONARY ALERT,FEELING BETTER,-SOB,-CP - Current Medication List Current Medications: Active Medications Acetaminophen (Tylenol -) 650 mg PO Q4H PRN PRN Reason: FEVER OR PAIN Last Admin: 04/03/17 18:50 Dose: 650 mg Enoxaparin Sodium (Lovenox -) 40 mg SQ DAILY [facility] Last Admin: 04/08/17 10:43 Dose: 40 mg Piperacillin Sod/Tazobactam Sod (Zosyn 3.375gm Ivpb (Pre-Docked)) 50 mls @ 100 mls/hr IVPB Q8H-IV RODNEY PRN Reason: Protocol Last Admin: 04/08/17 10:41 Dose: 100 mls/hr Insulin Aspart (Novolog Vial Sliding Scale -) 1 vial SQ ACHS RODNEY PRN Reason: Protocol Last Admin: 04/08/17 11:34 Dose: Not Given Lactobacillus Acidophilus (Bacid -) 1 tab PO DAILY [facility] Last Admin: 04/08/17 10:43 Dose: 1 tab Memantine (Namenda -) 10 mg PO DAILY [facility] Last Admin: 04/08/17 10:44 Dose: 10 mg Ondansetron HCl (Zofran Injection) 4 mg IVPB Q6H PRN PRN Reason: NAUSEA Polyethylene Glycol (Miralax (For Daily Use) -) 17 gm PO DAILY [facility] Last Admin: 04/08/17 10:49 Dose: 17 gm Silver Sulfadiazine (Silvadene -) 1 applic TP BID [facility] Last Admin: 04/07/17 22:31 Dose: 1 applic Tamsulosin HCl (Flomax -) 0.4 mg PO DAILY [facility] Last Admin: 04/08/17 10:43 Dose: 0.4 mg - Objective Vital Signs: Vital Signs Temperature 97.8 F 04/08/17 06:41 Pulse Rate 69 04/08/17 06:41 Respiratory Rate 18 04/08/17 06:41 Blood Pressure 119/65 04/08/17 06:41 O2 Sat by Pulse Oximetry (%) 98 04/07/17 21:00 Constitutional: Yes: Well Nourished, Calm Eyes: Yes: WNL HENT: Yes: WNL Neck: Yes: WNL Cardiovascular: Yes: Regular Rate and Rhythm, S1, S2 Respiratory: Yes: Diminished (DIMINISHED BS LEFT BASE) Gastrointestinal: Yes: Normal Bowel Sounds, Soft Extremities: Yes: WNL Edema: No Labs: CBC, BMP Assessment/Plan A/P Pneumonia clinically improving Parapneumonic Pleural Effusion uncomplicated COPD DM BPH - cytology negative malignant cells - continue antibiotics as per ID - inhaled bronchodilators as needed - DVT prophylaxis - f/u chest ct 4-6 wks to document resolution of infiltrate,effusion - chest x-ray today DR STILL Problem List - Problems (1) COPD (chronic obstructive pulmonary disease) Code(s): J44.9 - CHRONIC OBSTRUCTIVE PULMONARY DISEASE, UNSPECIFIED (2) Diabetes mellitus Code(s): E11.9 - TYPE 2 DIABETES MELLITUS WITHOUT COMPLICATIONS (3) HCAP (healthcare-associated pneumonia) Code(s): J18.9 - PNEUMONIA, UNSPECIFIED ORGANISM (4) Pleural effusion Code(s): J90 - PLEURAL EFFUSION, NOT ELSEWHERE CLASSIFIED
--- NOTE | 2017-04-08 14:25 | PN ---
Progress Note, Physician History of Present Illness: patient stable doing well no new issues - Current Medication List Current Medications: Active Medications Acetaminophen (Tylenol -) 650 mg PO Q4H PRN PRN Reason: FEVER OR PAIN Last Admin: 04/03/17 18:50 Dose: 650 mg Enoxaparin Sodium (Lovenox -) 40 mg SQ DAILY [facility] Last Admin: 04/08/17 10:43 Dose: 40 mg Piperacillin Sod/Tazobactam Sod (Zosyn 3.375gm Ivpb (Pre-Docked)) 50 mls @ 100 mls/hr IVPB Q8H-IV RODNEY PRN Reason: Protocol Last Admin: 04/08/17 10:41 Dose: 100 mls/hr Insulin Aspart (Novolog Vial Sliding Scale -) 1 vial SQ ACHS RODNEY PRN Reason: Protocol Last Admin: 04/08/17 11:34 Dose: Not Given Lactobacillus Acidophilus (Bacid -) 1 tab PO DAILY [facility] Last Admin: 04/08/17 10:43 Dose: 1 tab Memantine (Namenda -) 10 mg PO DAILY [facility] Last Admin: 04/08/17 10:44 Dose: 10 mg Ondansetron HCl (Zofran Injection) 4 mg IVPB Q6H PRN PRN Reason: NAUSEA Polyethylene Glycol (Miralax (For Daily Use) -) 17 gm PO DAILY [facility] Last Admin: 04/08/17 10:49 Dose: 17 gm Silver Sulfadiazine (Silvadene -) 1 applic TP BID [facility] Last Admin: 04/08/17 11:42 Dose: 1 applic Tamsulosin HCl (Flomax -) 0.4 mg PO DAILY [facility] Last Admin: 04/08/17 10:43 Dose: 0.4 mg - Objective Vital Signs: Vital Signs Temperature 98.6 F 04/08/17 10:00 Pulse Rate 65 04/08/17 10:00 Respiratory Rate 18 04/08/17 10:00 Blood Pressure 118/60 04/08/17 10:00 O2 Sat by Pulse Oximetry (%) 96 04/08/17 09:00 Constitutional: Yes: No Distress, Calm Cardiovascular: Yes: Regular Rate and Rhythm Respiratory: Yes: Poor Air Entry (left lower side absent) Gastrointestinal: Yes: Normal Bowel Sounds, Soft Musculoskeletal: Yes: WNL Extremities: Yes: Other Neurological: Yes: Alert, Oriented Psychiatric: Yes: Alert, Oriented Labs: CBC, BMP 04/05/17 07:10 04/05/17 07:10 INR, PTT INR 1.44 (0.82-1.09) H 04/02/17 06:00 Assessment/Plan Problem List - Problems (1) HCAP (healthcare-associated pneumonia) Code(s): J18.9 - PNEUMONIA, UNSPECIFIED ORGANISM (2) Pleural effusion Code(s): J90 - PLEURAL EFFUSION, NOT ELSEWHERE CLASSIFIED (3) Abdominal pain Code(s): R10.9 - UNSPECIFIED ABDOMINAL PAIN Qualifiers: Abdominal location: right lower quadrant Qualified Code(s): R10.31 - Right lower quadrant pain (4) Dementia Code(s): F03.90 - UNSPECIFIED DEMENTIA WITHOUT BEHAVIORAL DISTURBANCE (5) COPD (chronic obstructive pulmonary disease) Code(s): J44.9 - CHRONIC OBSTRUCTIVE PULMONARY DISEASE, UNSPECIFIED (6) Diabetes mellitus Code(s): E11.9 - TYPE 2 DIABETES MELLITUS WITHOUT COMPLICATIONS (7) BPH (benign prostatic hyperplasia) Code(s): N40.0 - BENIGN PROSTATIC HYPERPLASIA WITHOUT LOWER URINRY TRACT SYMP 8 gram positive bacteremia adenike plan stable i am going to order repeat ct scan to see about the pleural effusion and its resolvement
[2017-04-08] MEDS ORDERED: INSULIN (NOVOLOG) ASPART 100 UNITS/ML 10ML VIAL ONE (21:23)
[2017-04-09] MEDS: PIPERACILLIN/TAZOB 3.375 GM 50 ML IVPB SCH ×3 (02:45→17:35)
[2017-04-09] MEDS: INSULIN SLIDING SCALE (NOVOLOG) 1 VIAL SQ SCH ×4 (06:15→22:56)
[2017-04-09 08:19] LABS: BASOPHIL 0.9 % (0-2.0); EOSINOPHIL 0.6 % (0-4.5); MCH 31.6 pg (25.7-33.7); MCHC 34.6 g/dl (32.0-35.9); MEAN CELL VOLUME 91.4 fl (80-96); MEAN PLT VOLUME 6.6 fl (7.5-11.1); NEUTROPHILS 64.2 % (42.8-82.8); PLATELET COUNT 226 K/MM3 (134-434); RDW 14.8 % (11.9-15.9); WHITE BLOOD COUNT 5.5 K/mm3 (4.0-10.0)
[2017-04-09 08:39] LABS: CALCIUM 8.2 mg/dL (8.5-10.1); COCKROFT - GAULT 61.45; CREATININE 1.3 mg/dL (0.7-1.3)
--- NOTE | 2017-04-09 08:52 | PN ---
Progress Note (short form) - Note Progress Note: No acute event overnight. Afebrile. Denies chest pain, shortness of breath, palpitation or dizziness Scheduled for CT Chest today. O/E Vital Signs Period Temp Pulse Resp BP Sys/Gama Pulse Ox Last 24 Hr 97.9 F-98.6 F 65-77 18-18 102-163/53-65 96-96 Heart regular Lungs clear Abd soft Ext no edema Current Medications Acetaminophen (Tylenol -) 650 mg PO Q4H PRN PRN Reason: FEVER OR PAIN Last Admin: 04/03/17 18:50 Dose: 650 mg Enoxaparin Sodium (Lovenox -) 40 mg SQ DAILY [facility] Last Admin: 04/07/17 10:12 Dose: 40 mg Piperacillin Sod/Tazobactam Sod (Zosyn 3.375gm Ivpb (Pre-Docked)) 50 mls @ 100 mls/hr IVPB Q8H-IV RODNEY PRN Reason: Protocol Last Admin: 04/08/17 02:39 Dose: 100 mls/hr Insulin Aspart (Novolog Vial Sliding Scale -) 1 vial SQ ACHS RODNEY PRN Reason: Protocol Last Admin: 04/08/17 06:19 Dose: Not Given Lactobacillus Acidophilus (Bacid -) 1 tab PO DAILY [facility] Last Admin: 04/07/17 10:12 Dose: 1 tab Memantine (Namenda -) 10 mg PO DAILY [facility] Last Admin: 04/07/17 10:12 Dose: 10 mg Ondansetron HCl (Zofran Injection) 4 mg IVPB Q6H PRN PRN Reason: NAUSEA Polyethylene Glycol (Miralax (For Daily Use) -) 17 gm PO DAILY [facility] Last Admin: 04/07/17 10:12 Dose: 17 gm Silver Sulfadiazine (Silvadene -) 1 applic TP BID [facility] Last Admin: 04/07/17 22:31 Dose: 1 applic Tamsulosin HCl (Flomax -) 0.4 mg PO DAILY [facility] Last Admin: 04/07/17 10:12 Dose: 0.4 mg CBC, BMP 04/09/17 07:30 04/09/17 07:30 Microbiology 04/04/17 07:09 Blood Culture - Preliminary Blood - Peripheral Venous NO GROWTH OBTAINED AFTER 96 HOURS, INCUBATION TO CONTINUE FOR 1 DAYS. 04/04/17 06:40 Blood Culture - Preliminary Blood - Peripheral Venous NO GROWTH OBTAINED AFTER 96 HOURS, INCUBATION TO CONTINUE FOR 1 DAYS. A&P Assessment/Plan (1) Septicemia Assessment/Plan: - Resolving -cultures positive for streptococcus pneumonia. -continue present care. OOB and PT Code(s): J18.9 - PNEUMONIA, UNSPECIFIED ORGANISM (2) Pleural effusion Assessment/Plan: -CT scan reviewed -Loculated pleural effusion For CT Chest today. -pulmonary f/u Code(s): J90 - PLEURAL EFFUSION, NOT ELSEWHERE CLASSIFIED (3) Abdominal pain Assessment/Plan: -resolved Code(s): R10.9 - UNSPECIFIED ABDOMINAL PAIN Qualifiers: Abdominal location: right lower quadrant Qualified Code(s): R10.31 - Right lower quadrant pain (4) Dementia Assessment/Plan: -continue namenda Code(s): F03.90 - UNSPECIFIED DEMENTIA WITHOUT BEHAVIORAL DISTURBANCE (5) COPD (chronic obstructive pulmonary disease) Assessment/Plan: -not in exacerbation -continue home regimen Code(s): J44.9 - CHRONIC OBSTRUCTIVE PULMONARY DISEASE, UNSPECIFIED (6) Diabetes mellitus Assessment/Plan: -diabetic diet -FSBS and SSI Code(s): E11.9 - TYPE 2 DIABETES MELLITUS WITHOUT COMPLICATIONS (7) BPH (benign prostatic hyperplasia) Assessment/Plan: -continue tamsulosin Code(s): N40.0 - BENIGN PROSTATIC HYPERPLASIA WITHOUT LOWER URINRY TRACT SYMP (8) GT - Increase PO fluid intake.
[2017-04-09] MEDS ORDERED: PT OWN MED DRAWER 7, Y5N ONE ×2 (09:57→15:41)
[2017-04-09] MEDS: POLYETHYLENE GLYCOL 3350 119 GM BTL PO SCH (10:45)
[2017-04-09] MEDS: MEMANTINE HCL 10 MG TABLET (FP) PO SCH (10:45)
[2017-04-09] MEDS: TAMSULOSIN HCL 0.4 MG CAP.ER.24H (FP) PO SCH (10:45)
[2017-04-09] MEDS: LACTOBACILLUS ACIDOPHILUS 1 EACH TAB (FP) PO SCH (10:46)
[2017-04-09] MEDS: SILVER SULFADIAZINE 1% TOP CREAM 50 GM JAR TP SCH ×2 (10:47→22:33)
[2017-04-09] MEDS: ENOXAPARIN NA (PORCINE) 40 MG/0.4 ML DISP.SYRIN SQ SCH (11:47)
--- NOTE | 2017-04-09 14:39 | PN ---
Progress Note, Physician History of Present Illness: pulmonary no distress,-cp,-sob. - Current Medication List Current Medications: Active Medications Acetaminophen (Tylenol -) 650 mg PO Q4H PRN PRN Reason: FEVER OR PAIN Last Admin: 04/03/17 18:50 Dose: 650 mg Enoxaparin Sodium (Lovenox -) 40 mg SQ DAILY [facility] Last Admin: 04/09/17 11:47 Dose: 40 mg Piperacillin Sod/Tazobactam Sod (Zosyn 3.375gm Ivpb (Pre-Docked)) 50 mls @ 100 mls/hr IVPB Q8H-IV RODNEY PRN Reason: Protocol Last Admin: 04/09/17 10:46 Dose: 100 mls/hr Insulin Aspart (Novolog Vial Sliding Scale -) 1 vial SQ ACHS RODNEY PRN Reason: Protocol Last Admin: 04/09/17 11:41 Dose: Not Given Lactobacillus Acidophilus (Bacid -) 1 tab PO DAILY [facility] Last Admin: 04/09/17 10:46 Dose: 1 tab Memantine (Namenda -) 10 mg PO DAILY [facility] Last Admin: 04/09/17 10:45 Dose: 10 mg Ondansetron HCl (Zofran Injection) 4 mg IVPB Q6H PRN PRN Reason: NAUSEA Polyethylene Glycol (Miralax (For Daily Use) -) 17 gm PO DAILY [facility] Last Admin: 04/09/17 10:45 Dose: 17 gm Silver Sulfadiazine (Silvadene -) 1 applic TP BID [facility] Last Admin: 04/09/17 10:47 Dose: 1 applic Tamsulosin HCl (Flomax -) 0.4 mg PO DAILY [facility] Last Admin: 04/09/17 10:45 Dose: 0.4 mg - Objective Vital Signs: Vital Signs Temperature 98.2 F 04/09/17 10:00 Pulse Rate 63 04/09/17 10:00 Respiratory Rate 18 04/09/17 10:00 Blood Pressure 145/67 04/09/17 10:00 O2 Sat by Pulse Oximetry (%) 96 04/08/17 21:00 Constitutional: Yes: Well Nourished, Calm Eyes: Yes: WNL HENT: Yes: WNL Neck: Yes: Supple Cardiovascular: Yes: Regular Rate and Rhythm, S1, S2 Respiratory: Yes: Diminished Gastrointestinal: Yes: Normal Bowel Sounds, Soft Extremities: Yes: WNL Edema: No Labs: CBC, BMP 04/09/17 07:30 04/09/17 07:30 INR, PTT INR 1.44 (0.82-1.09) H 04/02/17 06:00 - ....Imaging Cat Scan: Report Reviewed, Image Reviewed Assessment/Plan A/P Pneumonia clinically improving Parapneumonic Pleural Effusion uncomplicated no change on ct COPD DM BPH - cytology negative malignant cells - continue antibiotics as per ID - inhaled bronchodilators as needed - DVT prophylaxis - consider f/u thoracentesis DR STILL Problem List - Problems (1) COPD (chronic obstructive pulmonary disease) Code(s): J44.9 - CHRONIC OBSTRUCTIVE PULMONARY DISEASE, UNSPECIFIED (2) Diabetes mellitus Code(s): E11.9 - TYPE 2 DIABETES MELLITUS WITHOUT COMPLICATIONS (3) HCAP (healthcare-associated pneumonia) Code(s): J18.9 - PNEUMONIA, UNSPECIFIED ORGANISM (4) Pleural effusion Code(s): J90 - PLEURAL EFFUSION, NOT ELSEWHERE CLASSIFIED
--- NOTE | 2017-04-09 15:25 | PN ---
Progress Note, Physician History of Present Illness: evaluated no complaints - Current Medication List Current Medications: Active Medications Acetaminophen (Tylenol -) 650 mg PO Q4H PRN PRN Reason: FEVER OR PAIN Last Admin: 04/03/17 18:50 Dose: 650 mg Enoxaparin Sodium (Lovenox -) 40 mg SQ DAILY [facility] Last Admin: 04/09/17 11:47 Dose: 40 mg Piperacillin Sod/Tazobactam Sod (Zosyn 3.375gm Ivpb (Pre-Docked)) 50 mls @ 100 mls/hr IVPB Q8H-IV [facility] PRN Reason: Protocol Last Admin: 04/09/17 10:46 Dose: 100 mls/hr Insulin Aspart (Novolog Vial Sliding Scale -) 1 vial SQ ACHS [facility] PRN Reason: Protocol Last Admin: 04/09/17 11:41 Dose: Not Given Lactobacillus Acidophilus (Bacid -) 1 tab PO DAILY [facility] Last Admin: 04/09/17 10:46 Dose: 1 tab Memantine (Namenda -) 10 mg PO DAILY [facility] Last Admin: 04/09/17 10:45 Dose: 10 mg Ondansetron HCl (Zofran Injection) 4 mg IVPB Q6H PRN PRN Reason: NAUSEA Polyethylene Glycol (Miralax (For Daily Use) -) 17 gm PO DAILY [facility] Last Admin: 04/09/17 10:45 Dose: 17 gm Silver Sulfadiazine (Silvadene -) 1 applic TP BID [facility] Last Admin: 04/09/17 10:47 Dose: 1 applic Tamsulosin HCl (Flomax -) 0.4 mg PO DAILY [facility] Last Admin: 04/09/17 10:45 Dose: 0.4 mg - Objective Vital Signs: Vital Signs Temperature 98.2 F 04/09/17 10:00 Pulse Rate 63 04/09/17 10:00 Respiratory Rate 18 04/09/17 10:00 Blood Pressure 145/67 04/09/17 10:00 O2 Sat by Pulse Oximetry (%) 96 04/08/17 21:00 Constitutional: Yes: No Distress, Calm Cardiovascular: Yes: Regular Rate and Rhythm Respiratory: Yes: Poor Air Entry Gastrointestinal: Yes: Normal Bowel Sounds, Soft Musculoskeletal: Yes: WNL Extremities: Yes: Other Integumentary: Yes: WNL Neurological: Yes: Alert, Oriented Psychiatric: Yes: Alert, Oriented Labs: CBC, BMP 04/09/17 07:30 04/09/17 07:30 INR, PTT INR 1.44 (0.82-1.09) H 04/02/17 06:00 - ....Imaging Cat Scan: Report Reviewed, Image Reviewed Assessment/Plan Assessment/Plan (1) Septicemia Code(s): J18.9 - PNEUMONIA, UNSPECIFIED ORGANISM (2) Pleural effusion Code(s): J90 - PLEURAL EFFUSION, NOT ELSEWHERE CLASSIFIED (3) Abdominal pain Code(s): R10.9 - UNSPECIFIED ABDOMINAL PAIN Qualifiers: Abdominal location: right lower quadrant Qualified Code(s): R10.31 - Right lower quadrant pain (4) Dementia Code(s): F03.90 - UNSPECIFIED DEMENTIA WITHOUT BEHAVIORAL DISTURBANCE (5) COPD (chronic obstructive pulmonary disease) Code(s): J44.9 - CHRONIC OBSTRUCTIVE PULMONARY DISEASE, UNSPECIFIED (6) Diabetes mellitus Code(s): E11.9 - TYPE 2 DIABETES MELLITUS WITHOUT COMPLICATIONS (7) BPH (benign prostatic hyperplasia) Code(s): N40.0 - BENIGN PROSTATIC HYPERPLASIA WITHOUT LOWER URINRY TRACT SYMP (8) GT - Increase PO fluid intake. plan continue abx after looking at the ct scan i think thoracic surgeon should have look at it i think patient needs vats rest as per primary
[2017-04-10] MEDS: PIPERACILLIN/TAZOB 3.375 GM 50 ML IVPB SCH ×3 (01:17→17:27)
[2017-04-10] MEDS: INSULIN SLIDING SCALE (NOVOLOG) 1 VIAL SQ SCH ×4 (06:39→21:08)
[2017-04-10 08:15] LABS: INR 1.3 (0.82-1.09); PROTHROMBIN TIME (PATIENT) 14.4 SEC (9.98-11.88)
[2017-04-10] MEDS: TAMSULOSIN HCL 0.4 MG CAP.ER.24H (FP) PO SCH (10:00)
[2017-04-10] MEDS: LACTOBACILLUS ACIDOPHILUS 1 EACH TAB (FP) PO SCH (10:00)
[2017-04-10] MEDS: MEMANTINE HCL 10 MG TABLET (FP) PO SCH (10:00)
[2017-04-10] MEDS: POLYETHYLENE GLYCOL 3350 119 GM BTL PO SCH (10:01)
[2017-04-10] MEDS: SILVER SULFADIAZINE 1% TOP CREAM 50 GM JAR TP SCH ×2 (10:04→21:07)
--- NOTE | 2017-04-10 10:55 | PN ---
Progress Note (short form) - Note Progress Note: NAD. Some pleuritic chest discomfort on the left. CT noted : Large loculated effusion on the left Intake & Output 04/07/17 04/08/17 04/09/17 04/10/17 23:59 23:59 23:59 23:59 Intake Total 250 500 600 0 Balance 250 500 600 0 Last Vital Signs Temp Pulse Resp BP Pulse Ox 98.1 F 67 18 100/55 98 04/10/17 05:37 04/10/17 05:37 04/10/17 05:37 04/10/17 05:37 04/09/17 21:00 Active Medications Acetaminophen (Tylenol -) 650 mg PO Q4H PRN PRN Reason: FEVER OR PAIN Last Admin: 04/03/17 18:50 Dose: 650 mg Piperacillin Sod/Tazobactam Sod (Zosyn 3.375gm Ivpb (Pre-Docked)) 50 mls @ 100 mls/hr IVPB Q8H-IV [facility] PRN Reason: Protocol Last Admin: 04/10/17 10:00 Dose: 100 mls/hr Insulin Aspart (Novolog Vial Sliding Scale -) 1 vial SQ ACHS [facility] PRN Reason: Protocol Last Admin: 04/10/17 06:39 Dose: Not Given Lactobacillus Acidophilus (Bacid -) 1 tab PO DAILY [facility] Last Admin: 04/10/17 10:00 Dose: 1 tab Memantine (Namenda -) 10 mg PO DAILY [facility] Last Admin: 04/10/17 10:00 Dose: 10 mg Ondansetron HCl (Zofran Injection) 4 mg IVPB Q6H PRN PRN Reason: NAUSEA Polyethylene Glycol (Miralax (For Daily Use) -) 17 gm PO DAILY [facility] Last Admin: 04/10/17 10:01 Dose: 17 gm Silver Sulfadiazine (Silvadene -) 1 applic TP BID [facility] Last Admin: 04/10/17 10:04 Dose: 1 applic Tamsulosin HCl (Flomax -) 0.4 mg PO DAILY [facility] Last Admin: 04/10/17 10:00 Dose: 0.4 mg Constitutional: Yes: NAD Eyes: Yes: WNL HENT: Yes: WNL Neck: Yes: Supple Cardiovascular: Yes: Regular Rate and Rhythm, S1, S2 Respiratory: Yes: Diminished at the bases Gastrointestinal: Yes: Normal Bowel Sounds, Soft Extremities: Yes: WNL Edema: No Labs: Laboratory Results - last 24 hr 04/09/17 04/09/17 04/09/17 11:37 17:35 22:34 INR POC Glucometer 100 89 101 04/10/17 04/10/17 06:05 06:37 INR 1.30 H POC Glucometer 93 Problem List - Problems (1) COPD (chronic obstructive pulmonary disease) Code(s): J44.9 - CHRONIC OBSTRUCTIVE PULMONARY DISEASE, UNSPECIFIED (2) Diabetes mellitus Code(s): E11.9 - TYPE 2 DIABETES MELLITUS WITHOUT COMPLICATIONS (3) HCAP (healthcare-associated pneumonia) Code(s): J18.9 - PNEUMONIA, UNSPECIFIED ORGANISM (4) Pleural effusion Code(s): J90 - PLEURAL EFFUSION, NOT ELSEWHERE CLASSIFIED Assessment/Plan Pneumonia Parapneumonic Pleural Effusion uncomplicated COPD DM BPH - CTS evaluation - continue antibiotics per ID - inhaled bronchodilators as needed - DVT prophylaxis Dr Sparrow
--- NOTE | 2017-04-10 11:14 | PN ---
Progress Note (short form) - Note Progress Note: No acute event overnight. Afebrile. Cough on & off. Denies chest pain, shortness of breath, palpitation or dizziness. O/E Vital Signs Period Temp Pulse Resp BP Sys/Gama Pulse Ox Last 24 Hr 98.0 F-98.8 F 67-72 18-18 98-122/50-60 98 Heart regular Lungs clear Abd soft Ext no edema Current Medications Acetaminophen (Tylenol -) 650 mg PO Q4H PRN PRN Reason: FEVER OR PAIN Last Admin: 04/03/17 18:50 Dose: 650 mg Enoxaparin Sodium (Lovenox -) 40 mg SQ DAILY [facility] Last Admin: 04/07/17 10:12 Dose: 40 mg Piperacillin Sod/Tazobactam Sod (Zosyn 3.375gm Ivpb (Pre-Docked)) 50 mls @ 100 mls/hr IVPB Q8H-IV [facility] PRN Reason: Protocol Last Admin: 04/08/17 02:39 Dose: 100 mls/hr Insulin Aspart (Novolog Vial Sliding Scale -) 1 vial SQ ACHS [facility] PRN Reason: Protocol Last Admin: 04/08/17 06:19 Dose: Not Given Lactobacillus Acidophilus (Bacid -) 1 tab PO DAILY [facility] Last Admin: 04/07/17 10:12 Dose: 1 tab Memantine (Namenda -) 10 mg PO DAILY [facility] Last Admin: 04/07/17 10:12 Dose: 10 mg Ondansetron HCl (Zofran Injection) 4 mg IVPB Q6H PRN PRN Reason: NAUSEA Polyethylene Glycol (Miralax (For Daily Use) -) 17 gm PO DAILY [facility] Last Admin: 04/07/17 10:12 Dose: 17 gm Silver Sulfadiazine (Silvadene -) 1 applic TP BID [facility] Last Admin: 04/07/17 22:31 Dose: 1 applic Tamsulosin HCl (Flomax -) 0.4 mg PO DAILY [facility] Last Admin: 04/07/17 10:12 Dose: 0.4 mg CBC, BMP 04/09/17 07:30 04/09/17 07:30 Microbiology 04/04/17 07:09 Blood Culture - Preliminary Blood - Peripheral Venous NO GROWTH OBTAINED AFTER 96 HOURS, INCUBATION TO CONTINUE FOR 1 DAYS. 04/04/17 06:40 Blood Culture - Preliminary Blood - Peripheral Venous NO GROWTH OBTAINED AFTER 96 HOURS, INCUBATION TO CONTINUE FOR 1 DAYS. A&P Assessment/Plan (1) Septicemia Assessment/Plan: - Resolving -cultures positive for streptococcus pneumonia. -continue present care. OOB and PT Code(s): J18.9 - PNEUMONIA, UNSPECIFIED ORGANISM (2) Pleural effusion Assessment/Plan: -CT scan reviewed -Loculated pleural effusion - CTS evaluation. -pulmonary f/u Code(s): J90 - PLEURAL EFFUSION, NOT ELSEWHERE CLASSIFIED (3) Abdominal pain Assessment/Plan: -resolved Code(s): R10.9 - UNSPECIFIED ABDOMINAL PAIN Qualifiers: Abdominal location: right lower quadrant Qualified Code(s): R10.31 - Right lower quadrant pain (4) Dementia Assessment/Plan: -continue namenda Code(s): F03.90 - UNSPECIFIED DEMENTIA WITHOUT BEHAVIORAL DISTURBANCE (5) COPD (chronic obstructive pulmonary disease) Assessment/Plan: -not in exacerbation -continue home regimen Code(s): J44.9 - CHRONIC OBSTRUCTIVE PULMONARY DISEASE, UNSPECIFIED (6) Diabetes mellitus Assessment/Plan: -diabetic diet -FSBS and SSI Code(s): E11.9 - TYPE 2 DIABETES MELLITUS WITHOUT COMPLICATIONS (7) BPH (benign prostatic hyperplasia) Assessment/Plan: -continue tamsulosin Code(s): N40.0 - BENIGN PROSTATIC HYPERPLASIA WITHOUT LOWER URINRY TRACT SYMP (8) GT - Increase PO fluid intake.
--- NOTE | 2017-04-10 15:17 | PN ---
Progress Note, Physician History of Present Illness: patient stable no new issues says he is doing well - Current Medication List Current Medications: Active Medications Acetaminophen (Tylenol -) 650 mg PO Q4H PRN PRN Reason: FEVER OR PAIN Last Admin: 04/03/17 18:50 Dose: 650 mg Piperacillin Sod/Tazobactam Sod (Zosyn 3.375gm Ivpb (Pre-Docked)) 50 mls @ 100 mls/hr IVPB Q8H-IV [facility] PRN Reason: Protocol Last Admin: 04/10/17 10:00 Dose: 100 mls/hr Insulin Aspart (Novolog Vial Sliding Scale -) 1 vial SQ ACHS [facility] PRN Reason: Protocol Last Admin: 04/10/17 11:15 Dose: Not Given Lactobacillus Acidophilus (Bacid -) 1 tab PO DAILY [facility] Last Admin: 04/10/17 10:00 Dose: 1 tab Memantine (Namenda -) 10 mg PO DAILY [facility] Last Admin: 04/10/17 10:00 Dose: 10 mg Ondansetron HCl (Zofran Injection) 4 mg IVPB Q6H PRN PRN Reason: NAUSEA Polyethylene Glycol (Miralax (For Daily Use) -) 17 gm PO DAILY [facility] Last Admin: 04/10/17 10:01 Dose: 17 gm Silver Sulfadiazine (Silvadene -) 1 applic TP BID [facility] Last Admin: 04/10/17 10:04 Dose: 1 applic Tamsulosin HCl (Flomax -) 0.4 mg PO DAILY [facility] Last Admin: 04/10/17 10:00 Dose: 0.4 mg - Objective Vital Signs: Vital Signs Temperature 98.3 F 04/10/17 10:00 Pulse Rate 71 04/10/17 10:00 Respiratory Rate 18 04/10/17 10:00 Blood Pressure 109/63 04/10/17 10:00 O2 Sat by Pulse Oximetry (%) 98 04/09/17 21:00 Constitutional: Yes: No Distress, Calm Cardiovascular: Yes: Regular Rate and Rhythm Respiratory: Yes: Poor Air Entry (at the abses) Gastrointestinal: Yes: Normal Bowel Sounds, Soft Musculoskeletal: Yes: WNL Extremities: Yes: WNL Neurological: Yes: Alert, Oriented Psychiatric: Yes: Alert Labs: CBC, BMP 04/09/17 07:30 04/09/17 07:30 INR, PTT INR 1.30 (0.82-1.09) H 04/10/17 06:05 Assessment/Plan Assessment/Plan (1) Septicemia Code(s): J18.9 - PNEUMONIA, UNSPECIFIED ORGANISM (2) Pleural effusion Code(s): J90 - PLEURAL EFFUSION, NOT ELSEWHERE CLASSIFIED (3) Abdominal pain Code(s): R10.9 - UNSPECIFIED ABDOMINAL PAIN Qualifiers: Abdominal location: right lower quadrant Qualified Code(s): R10.31 - Right lower quadrant pain (4) Dementia Code(s): F03.90 - UNSPECIFIED DEMENTIA WITHOUT BEHAVIORAL DISTURBANCE (5) COPD (chronic obstructive pulmonary disease) Code(s): J44.9 - CHRONIC OBSTRUCTIVE PULMONARY DISEASE, UNSPECIFIED (6) Diabetes mellitus Code(s): E11.9 - TYPE 2 DIABETES MELLITUS WITHOUT COMPLICATIONS (7) BPH (benign prostatic hyperplasia) Code(s): N40.0 - BENIGN PROSTATIC HYPERPLASIA WITHOUT LOWER URINRY TRACT SYMP (8) GT - Increase PO fluid intake. plan continue abx await for ct surgery rest ct as per primary
[2017-04-10] MEDS: ACETAMINOPHEN 325 MG TABLET (FP) PO PRN (21:04)
[2017-04-11] MEDS: PIPERACILLIN/TAZOB 3.375 GM 50 ML IVPB SCH ×3 (02:18→17:25)
[2017-04-11] MEDS: INSULIN SLIDING SCALE (NOVOLOG) 1 VIAL SQ SCH ×4 (06:02→21:29)
--- NOTE | 2017-04-11 10:06 | CONSULT ---
Consult - text type - Consultation Consultation Note: Thoracic Surgery Consultation: Pt seen and examined. Consulted for loculated pleural effusion (parapneumonic). Briefly, pt is 77 year-old male with very MILD dementia, who lives in a NH and walks with a walker at baseline. He was admitted with pneumonia over 1 week ago and a pleural effusion was tapped. It did not grow any organisms. He has been on antibiotic therapy and has a normal WBC. No further fevers. He does require 2L NC for oxygen saturation in mid 90's but is not short of breath and is breathing comfortably. I have reviewed his images and believe the goals of therapy are to improve his oxygenation and maximize lung function. However, there are no signs of sepsis. Given his weakened condition, although he could tolerate a VATS with general anesthesia, I believe he would have a prolonged recovery. Since his baseline is so limited I would advocate trying pleural drainage with TPA and DNAse if drainage slows down. If this does not work, a VATS may be more helpful. I have spent 40 minutes in this consultation with >50% involved in counseling with the patient, and coordination of care with Dr. Sparorw and Dr. Petersen including obtaining the patient's history from the patient and his nurse, a physical exam, and reviewing his history and images.
--- NOTE | 2017-04-11 12:24 | PN ---
Progress Note (short form) - Note Progress Note: No acute event overnight. Afebrile. Occasional cough. Scheduled for pleural drainage with TPA today. O/E Vital Signs Period Temp Pulse Resp BP Sys/Gama Pulse Ox Last 24 Hr 97.4 F-97.6 F 73-86 18-86 103-116/50-55 94-96 Heart regular Lungs clear Abd soft Ext no edema Current Medications Acetaminophen (Tylenol -) 650 mg PO Q4H PRN PRN Reason: FEVER OR PAIN Last Admin: 04/03/17 18:50 Dose: 650 mg Enoxaparin Sodium (Lovenox -) 40 mg SQ DAILY [facility] Last Admin: 04/07/17 10:12 Dose: 40 mg Piperacillin Sod/Tazobactam Sod (Zosyn 3.375gm Ivpb (Pre-Docked)) 50 mls @ 100 mls/hr IVPB Q8H-IV [facility] PRN Reason: Protocol Last Admin: 04/08/17 02:39 Dose: 100 mls/hr Insulin Aspart (Novolog Vial Sliding Scale -) 1 vial SQ ACHS [facility] PRN Reason: Protocol Last Admin: 04/08/17 06:19 Dose: Not Given Lactobacillus Acidophilus (Bacid -) 1 tab PO DAILY [facility] Last Admin: 04/07/17 10:12 Dose: 1 tab Memantine (Namenda -) 10 mg PO DAILY [facility] Last Admin: 04/07/17 10:12 Dose: 10 mg Ondansetron HCl (Zofran Injection) 4 mg IVPB Q6H PRN PRN Reason: NAUSEA Polyethylene Glycol (Miralax (For Daily Use) -) 17 gm PO DAILY [facility] Last Admin: 04/07/17 10:12 Dose: 17 gm Silver Sulfadiazine (Silvadene -) 1 applic TP BID [facility] Last Admin: 04/07/17 22:31 Dose: 1 applic Tamsulosin HCl (Flomax -) 0.4 mg PO DAILY [facility] Last Admin: 04/07/17 10:12 Dose: 0.4 mg CBC, BMP 04/09/17 07:30 04/09/17 07:30 Microbiology 04/04/17 07:09 Blood Culture - Preliminary Blood - Peripheral Venous NO GROWTH OBTAINED AFTER 96 HOURS, INCUBATION TO CONTINUE FOR 1 DAYS. 04/04/17 06:40 Blood Culture - Preliminary Blood - Peripheral Venous NO GROWTH OBTAINED AFTER 96 HOURS, INCUBATION TO CONTINUE FOR 1 DAYS. A&P Assessment/Plan (1) Septicemia Assessment/Plan: - Improving. -cultures positive for streptococcus pneumonia. -continue IV abx. Code(s): J18.9 - PNEUMONIA, UNSPECIFIED ORGANISM (2) Pleural effusion Assessment/Plan: -CT scan reviewed -Loculated pleural effusion - Dr. Garcia consult reviewed. -Discussed in detail with Dr. Sparrow. -For pleural drainage with TPA and DNAse today with Dr. Clark. Code(s): J90 - PLEURAL EFFUSION, NOT ELSEWHERE CLASSIFIED (3) Abdominal pain Assessment/Plan: -resolved Code(s): R10.9 - UNSPECIFIED ABDOMINAL PAIN Qualifiers: Abdominal location: right lower quadrant Qualified Code(s): R10.31 - Right lower quadrant pain (4) Dementia Assessment/Plan: -continue namenda Code(s): F03.90 - UNSPECIFIED DEMENTIA WITHOUT BEHAVIORAL DISTURBANCE (5) COPD (chronic obstructive pulmonary disease) Assessment/Plan: -not in exacerbation -continue home regimen Code(s): J44.9 - CHRONIC OBSTRUCTIVE PULMONARY DISEASE, UNSPECIFIED (6) Diabetes mellitus Assessment/Plan: -diabetic diet -FSBS and SSI Code(s): E11.9 - TYPE 2 DIABETES MELLITUS WITHOUT COMPLICATIONS (7) BPH (benign prostatic hyperplasia) Assessment/Plan: -continue tamsulosin Code(s): N40.0 - BENIGN PROSTATIC HYPERPLASIA WITHOUT LOWER URINRY TRACT SYMP (8) GT - Increase PO fluid intake.
[2017-04-11] MEDS ORDERED: PT OWN MED DRAWER 7, Y5N ONE (12:39)
[2017-04-11] MEDS: LACTOBACILLUS ACIDOPHILUS 1 EACH TAB (FP) PO SCH (12:54)
[2017-04-11] MEDS: MEMANTINE HCL 10 MG TABLET (FP) PO SCH (12:54)
[2017-04-11] MEDS: TAMSULOSIN HCL 0.4 MG CAP.ER.24H (FP) PO SCH (12:54)
[2017-04-11] MEDS: POLYETHYLENE GLYCOL 3350 119 GM BTL PO SCH (12:56)
[2017-04-11] MEDS: SILVER SULFADIAZINE 1% TOP CREAM 50 GM JAR TP SCH ×2 (13:01→21:29)
[2017-04-11] MEDS: ACETAMINOPHEN 325 MG TABLET (FP) PO PRN ×3 (13:02→21:29)
--- NOTE | 2017-04-11 13:05 | PN ---
Progress Note (short form) - Note Progress Note: PULMONARY AWAKE/ALERT VSS/AFEBRILE ANICTERIC LEFT BASE DIMINISHED BREATH SOUNDS/LEFT CHEST TUBE S1S2 BS+ LESS EDEMA LABS/MEDS/NOTES/IMAGING Pneumonia Parapneumonic Pleural Effusion uncomplicated Now with chest tube drainage COPD DM BPH - cytology negative for malignant cell - continue antibiotics, - inhaled bronchodilators prn - DVT prophylaxis - Chest tube drainage Milana ALBERTS MD
--- NOTE | 2017-04-11 13:13 | PN ---
Progress Note, Physician History of Present Illness: patient stable got chest tube done plan is to try conservative aprroach since his condition is not fit and then do vats we will have to see how patient does and if he might need vats down the line - Current Medication List Current Medications: Active Medications Acetaminophen (Tylenol -) 650 mg PO Q4H PRN PRN Reason: FEVER OR PAIN Last Admin: 04/11/17 13:02 Dose: 650 mg Piperacillin Sod/Tazobactam Sod (Zosyn 3.375gm Ivpb (Pre-Docked)) 50 mls @ 100 mls/hr IVPB Q8H-IV [facility] PRN Reason: Protocol Last Admin: 04/11/17 12:52 Dose: 100 mls/hr Insulin Aspart (Novolog Vial Sliding Scale -) 1 vial SQ ACHS [facility] PRN Reason: Protocol Last Admin: 04/11/17 12:57 Dose: Not Given Lactobacillus Acidophilus (Bacid -) 1 tab PO DAILY [facility] Last Admin: 04/11/17 12:54 Dose: 1 tab Memantine (Namenda -) 10 mg PO DAILY [facility] Last Admin: 04/11/17 12:54 Dose: 10 mg Ondansetron HCl (Zofran Injection) 4 mg IVPB Q6H PRN PRN Reason: NAUSEA Polyethylene Glycol (Miralax (For Daily Use) -) 17 gm PO DAILY [facility] Last Admin: 04/11/17 12:56 Dose: 17 gm Silver Sulfadiazine (Silvadene -) 1 applic TP BID [facility] Last Admin: 04/11/17 13:01 Dose: 1 applic Tamsulosin HCl (Flomax -) 0.4 mg PO DAILY [facility] Last Admin: 04/11/17 12:54 Dose: 0.4 mg - Objective Vital Signs: Vital Signs Temperature 98.4 F 04/11/17 12:51 Pulse Rate 76 04/11/17 12:51 Respiratory Rate 18 04/11/17 12:51 Blood Pressure 114/64 04/11/17 12:51 O2 Sat by Pulse Oximetry (%) 94 L 04/11/17 09:00 Constitutional: Yes: No Distress, Calm Cardiovascular: Yes: Regular Rate and Rhythm Respiratory: Yes: Poor Air Entry, Other Gastrointestinal: Yes: Normal Bowel Sounds, Soft Musculoskeletal: Yes: WNL Extremities: Yes: Other Neurological: Yes: Alert, Oriented Psychiatric: Yes: Alert Labs: CBC, BMP 04/09/17 07:30 04/09/17 07:30 INR, PTT INR 1.30 (0.82-1.09) H 04/10/17 06:05 Assessment/Plan Assessment/Plan (1) Septicemia Code(s): J18.9 - PNEUMONIA, UNSPECIFIED ORGANISM (2) Pleural effusion Code(s): J90 - PLEURAL EFFUSION, NOT ELSEWHERE CLASSIFIED (3) Abdominal pain Code(s): R10.9 - UNSPECIFIED ABDOMINAL PAIN Qualifiers: Abdominal location: right lower quadrant Qualified Code(s): R10.31 - Right lower quadrant pain (4) Dementia Code(s): F03.90 - UNSPECIFIED DEMENTIA WITHOUT BEHAVIORAL DISTURBANCE (5) COPD (chronic obstructive pulmonary disease) Code(s): J44.9 - CHRONIC OBSTRUCTIVE PULMONARY DISEASE, UNSPECIFIED (6) Diabetes mellitus Code(s): E11.9 - TYPE 2 DIABETES MELLITUS WITHOUT COMPLICATIONS (7) BPH (benign prostatic hyperplasia) Code(s): N40.0 - BENIGN PROSTATIC HYPERPLASIA WITHOUT LOWER URINRY TRACT SYMP (8) GT - Increase PO fluid intake. plan continue abx ct surgery note noted will await for all results rest as per primary
[2017-04-12] MEDS: PIPERACILLIN/TAZOB 3.375 GM 50 ML IVPB SCH ×3 (01:49→17:03)
[2017-04-12] MEDS: INSULIN SLIDING SCALE (NOVOLOG) 1 VIAL SQ SCH ×4 (06:14→22:03)
[2017-04-12 08:32] LABS: BASOPHIL 0.7 % (0-2.0); EOSINOPHIL 0.6 % (0-4.5); MCH 31.5 pg (25.7-33.7); MCHC 34.9 g/dl (32.0-35.9); MEAN CELL VOLUME 90.5 fl (80-96); MEAN PLT VOLUME 6.7 fl (7.5-11.1); NEUTROPHILS 72.1 % (42.8-82.8); PLATELET COUNT 198 K/MM3 (134-434); RDW 14.6 % (11.9-15.9); WHITE BLOOD COUNT 6.3 K/mm3 (4.0-10.0)
[2017-04-12 09:01] LABS: ALBUMIN 2.9 g/dl (3.4-5.0); BILIRUBIN,TOTAL 1.1 mg/dL (0.2-1.0); CALCIUM 8.6 mg/dL (8.5-10.1); COCKROFT - GAULT 53.26; CREATININE 1.5 mg/dL (0.7-1.3); TOT PROT 5.6 g/dl (6.4-8.2)
[2017-04-12] MEDS: MEMANTINE HCL 10 MG TABLET (FP) PO SCH (09:07)
[2017-04-12] MEDS: TAMSULOSIN HCL 0.4 MG CAP.ER.24H (FP) PO SCH (09:07)
[2017-04-12] MEDS: LACTOBACILLUS ACIDOPHILUS 1 EACH TAB (FP) PO SCH (09:07)
[2017-04-12] MEDS: POLYETHYLENE GLYCOL 3350 119 GM BTL PO SCH (09:08)
[2017-04-12] MEDS: SILVER SULFADIAZINE 1% TOP CREAM 50 GM JAR TP SCH ×2 (09:10→22:03)
--- NOTE | 2017-04-12 10:41 | PN ---
Progress Note (short form) - Note Progress Note: Patient seen and examined. Chart reviewed. Events noted. Currently lying in bed, head raised. Alert, responsive and appropriate. Denies new chest discomfort or increased dyspnea. Labs, radiologic procedures and progress/ recruiting consultant notes reviewed. Tolerating chest tube placement Drainage noted. Medications Ondansetron HCl (Zofran Injection) 4 mg IVPB Q6H PRN PRN Reason: NAUSEA Tamsulosin HCl (Flomax -) 0.4 mg PO DAILY [facility] Last Admin: 04/12/17 09:07 Dose: 0.4 mg Acetaminophen (Tylenol -) 650 mg PO Q4H PRN PRN Reason: FEVER OR PAIN Last Admin: 04/11/17 21:29 Dose: 650 mg Piperacillin Sod/Tazobactam Sod (Zosyn 3.375gm Ivpb (Pre-Docked)) 50 mls @ 100 mls/hr IVPB Q8H-IV [facility] PRN Reason: Protocol Last Admin: 04/12/17 09:07 Dose: 100 mls/hr Lactobacillus Acidophilus (Bacid -) 1 tab PO DAILY [facility] Last Admin: 04/12/17 09:07 Dose: 1 tab Polyethylene Glycol (Miralax (For Daily Use) -) 17 gm PO DAILY [facility] Last Admin: 04/12/17 09:08 Dose: 17 gm Memantine (Namenda -) 10 mg PO DAILY [facility] Last Admin: 04/12/17 09:07 Dose: 10 mg Insulin Aspart (Novolog Vial Sliding Scale -) 1 vial SQ ACHS [facility] PRN Reason: Protocol Last Admin: 04/12/17 06:14 Dose: Not Given Silver Sulfadiazine (Silvadene -) 1 applic TP BID [facility] Last Admin: 04/12/17 09:10 Dose: Not Given Selected Entries 04/11/17 04/12/17 21:00 06:00 Temperature 97.5 F L Pulse Rate 77 Respiratory 18 Rate Blood Pressure 121/65 O2 Sat by Pulse 100 Oximetry (%) Oxygen Delivery Nasal Cannula Method Oxygen Flow 2 Rate Laboratory Tests 04/10/17 04/12/17 04/12/17 06:05 07:00 07:00 WBC 6.3 Hgb 12.7 Hct 36.3 Plt Count 198 INR 1.30 H Sodium 141 Potassium 4.4 Chloride 103 Carbon Dioxide 25 BUN 22 H D Creatinine 1.5 H Random Glucose 95 Calcium 8.6 Total Bilirubin 1.1 H D AST 43 H D ALT 62 Alkaline Phosphatase 138 H Total Protein 5.6 L Albumin 2.9 L Chest Left sided chest tube Decreased breath sounds at left base Right lung clear Cor RRR Abd Soft Non-tender BS positive No mass Ext No edema Bilateral stasis/post-inflammatory hyperpigmented changes Neuro No new focal deficit Assessment and Plan Septicemia Blood cultures positive for Strep Pneumo On Rx Left sided parapneumonic effusion Post chest tube insertion COPD Stable DM Stable Dementia Stable Abdominal discomfort Stable BPH By history Renal insufficiency BUN/Cr 22/1.5 Encourage fluids Continue current Rx
--- NOTE | 2017-04-12 10:50 | PN ---
Progress Note, Physician History of Present Illness: feeling better chest tube still draining - Current Medication List Current Medications: Active Medications Acetaminophen (Tylenol -) 650 mg PO Q4H PRN PRN Reason: FEVER OR PAIN Last Admin: 04/11/17 21:29 Dose: 650 mg Piperacillin Sod/Tazobactam Sod (Zosyn 3.375gm Ivpb (Pre-Docked)) 50 mls @ 100 mls/hr IVPB Q8H-IV [facility] PRN Reason: Protocol Last Admin: 04/12/17 09:07 Dose: 100 mls/hr Insulin Aspart (Novolog Vial Sliding Scale -) 1 vial SQ ACHS [facility] PRN Reason: Protocol Last Admin: 04/12/17 06:14 Dose: Not Given Lactobacillus Acidophilus (Bacid -) 1 tab PO DAILY [facility] Last Admin: 04/12/17 09:07 Dose: 1 tab Memantine (Namenda -) 10 mg PO DAILY [facility] Last Admin: 04/12/17 09:07 Dose: 10 mg Ondansetron HCl (Zofran Injection) 4 mg IVPB Q6H PRN PRN Reason: NAUSEA Polyethylene Glycol (Miralax (For Daily Use) -) 17 gm PO DAILY [facility] Last Admin: 04/12/17 09:08 Dose: 17 gm Silver Sulfadiazine (Silvadene -) 1 applic TP BID [facility] Last Admin: 04/12/17 09:10 Dose: Not Given Tamsulosin HCl (Flomax -) 0.4 mg PO DAILY [facility] Last Admin: 04/12/17 09:07 Dose: 0.4 mg - Objective Vital Signs: Vital Signs Temperature 97.5 F L 04/12/17 06:00 Pulse Rate 77 04/12/17 06:00 Respiratory Rate 18 04/12/17 06:00 Blood Pressure 121/65 04/12/17 06:00 O2 Sat by Pulse Oximetry (%) 100 04/11/17 21:00 Constitutional: Yes: No Distress, Calm Cardiovascular: Yes: Regular Rate and Rhythm Respiratory: Yes: Regular, Poor Air Entry, Other (chest tube left side) Gastrointestinal: Yes: Normal Bowel Sounds, Soft Musculoskeletal: Yes: WNL Extremities: Yes: WNL Neurological: Yes: Alert, Oriented Psychiatric: Yes: Alert Labs: CBC, BMP 04/12/17 07:00 04/12/17 07:00 INR, PTT INR 1.30 (0.82-1.09) H 04/10/17 06:05 Assessment/Plan Assessment/Plan (1) Septicemia Code(s): J18.9 - PNEUMONIA, UNSPECIFIED ORGANISM (2) Pleural effusion Code(s): J90 - PLEURAL EFFUSION, NOT ELSEWHERE CLASSIFIED (3) Abdominal pain Code(s): R10.9 - UNSPECIFIED ABDOMINAL PAIN Qualifiers: Abdominal location: right lower quadrant Qualified Code(s): R10.31 - Right lower quadrant pain (4) Dementia Code(s): F03.90 - UNSPECIFIED DEMENTIA WITHOUT BEHAVIORAL DISTURBANCE (5) COPD (chronic obstructive pulmonary disease) Code(s): J44.9 - CHRONIC OBSTRUCTIVE PULMONARY DISEASE, UNSPECIFIED (6) Diabetes mellitus Code(s): E11.9 - TYPE 2 DIABETES MELLITUS WITHOUT COMPLICATIONS (7) BPH (benign prostatic hyperplasia) Code(s): N40.0 - BENIGN PROSTATIC HYPERPLASIA WITHOUT LOWER URINRY TRACT SYMP (8) GT - Increase PO fluid intake. plan continue abx continue to monitor drainage
--- NOTE | 2017-04-12 13:37 | PN ---
Progress Note (short form) - Note Progress Note: PULMONARY AWAKE/ALERT VSS/AFEBRILE ANICTERIC LEFT BASE DIMINISHED BREATH SOUNDS/LEFT CHEST TUBE IN PLACE S1S2 BS+ LESS EDEMA LABS/MEDS/NOTES/IMAGING Pneumonia Parapneumonic Pleural Effusion uncomplicated Now with chest tube drainage COPD DM BPH - cytology negative for malignant cell - continue antibiotics, - inhaled bronchodilators prn - DVT prophylaxis - Chest tube drainage Milana ALBERTS MD
[2017-04-12] MEDS ORDERED: PT OWN MED DRAWER 7, Y5N ONE (21:53)
[2017-04-12] MEDS ORDERED: INSULIN (NOVOLOG) ASPART 100 UNITS/ML 10ML VIAL ONE (21:54)
[2017-04-13] MEDS: PIPERACILLIN/TAZOB 3.375 GM 50 ML IVPB SCH ×3 (03:00→18:20)
[2017-04-13] MEDS: INSULIN SLIDING SCALE (NOVOLOG) 1 VIAL SQ SCH ×4 (06:38→21:58)
[2017-04-13 07:40] LABS: ALBUMIN 2.9 g/dl (3.4-5.0); CALCIUM 8.3 mg/dL (8.5-10.1)
[2017-04-13 07:43] LABS: BILIRUBIN,TOTAL 0.8 mg/dL (0.2-1.0); COCKROFT - GAULT 46.99; CREATININE 1.7 mg/dL (0.7-1.3); TOT PROT 5.6 g/dl (6.4-8.2)
[2017-04-13] MEDS ORDERED: PT OWN MED DRAWER 7, Y5N ONE (08:27)
[2017-04-13 08:33] LABS: BASOPHIL 0.6 % (0-2.0); MCH 31.7 pg (25.7-33.7); MCHC 35.2 g/dl (32.0-35.9); MEAN CELL VOLUME 89.9 fl (80-96); MEAN PLT VOLUME 6.7 fl (7.5-11.1); NEUTROPHILS 62.3 % (42.8-82.8); PLATELET COUNT 197 K/MM3 (134-434); RDW 14.9 % (11.9-15.9); WHITE BLOOD COUNT 5.4 K/mm3 (4.0-10.0)
[2017-04-13] MEDS: SILVER SULFADIAZINE 1% TOP CREAM 50 GM JAR TP SCH ×2 (09:08→21:28)
[2017-04-13] MEDS: POLYETHYLENE GLYCOL 3350 119 GM BTL PO SCH (09:08)
[2017-04-13] MEDS: TAMSULOSIN HCL 0.4 MG CAP.ER.24H (FP) PO SCH (09:08)
[2017-04-13] MEDS: LACTOBACILLUS ACIDOPHILUS 1 EACH TAB (FP) PO SCH (09:08)
[2017-04-13] MEDS: MEMANTINE HCL 10 MG TABLET (FP) PO SCH (09:08)
--- NOTE | 2017-04-13 09:37 | PN ---
Progress Note (short form) - Note Progress Note: Patient seen and examined. Chart reviewed. Events noted. Currently lying in bed, head raised. Alert, responsive and appropriate. Denies new chest discomfort and claims to be experiencing less dyspnea. Labs, radiologic procedures and progress/leadership development consultant notes reviewed. Tolerating chest tube placement Drainage noted, but was recorded as only 5 cc 04/12/17 after initial output 04/11/17. Persistence of left hand pain c/w previous arthritis symptoms. Selected Entries 04/12/17 04/12/17 04/13/17 21:00 22:00 06:00 Temperature 97.7 F Pulse Rate 79 Respiratory 18 Rate Blood Pressure 102/53 O2 Sat by Pulse 98 Oximetry (%) Oxygen Flow 2 Rate Laboratory Tests 04/13/17 04/13/17 06:20 06:20 WBC 5.4 Hgb 12.1 Hct 34.4 L Plt Count 197 Sodium 140 Potassium 4.2 Chloride 105 Carbon Dioxide 28 BUN 24 H Creatinine 1.7 H Random Glucose 87 Calcium 8.3 L Total Bilirubin 0.8 D AST 36 ALT 52 Alkaline Phosphatase 128 H Total Protein 5.6 L Albumin 2.9 L Chest Left sided chest tube Decreased breath sounds at left base Right lung clear Cor RRR Abd Soft Non-tender BS positive No mass Ext No edema Bilateral stasis/post-inflammatory hyperpigmented changes No inflammatory changes of left hand or at IV site in left lower forearm. Neuro No new focal deficit Assessment and Plan Septicemia Blood cultures positive for Strep Pneumo On Rx Left sided parapneumonic effusion Post chest tube insertion, now with minimal drainage over the past 24 hours. May need to re-image the area. COPD Stable DM Stable Dementia Stable Abdominal discomfort Stable BPH By history Renal insufficiency BUN/Cr 22/1.5>>24/1.7 Encourage fluids Hypoalbuminemia 2.9 Multifactorial related to acute/chronic disease as well as nutritional factors Continue current Rx
--- NOTE | 2017-04-13 12:02 | PN ---
Progress Note (short form) - Note Progress Note: PULMONARY AWAKE/ALERT VSS/AFEBRILE ANICTERIC LEFT BASE DIMINISHED BREATH SOUNDS/LEFT CHEST TUBE IN PLACE S1S2 BS+ LESS EDEMA LABS/MEDS/NOTES/IMAGING Pneumonia Parapneumonic Pleural Effusion uncomplicated Now with chest tube drainage COPD DM BPH - continue antibiotics, - inhaled bronchodilators prn - DVT prophylaxis - Chest tube drainage to be monitored - CXR ALINE ALBERTS MD
--- NOTE | 2017-04-13 12:27 | PN ---
Progress Note, Physician History of Present Illness: feeling better no new issues drainage minimal - Current Medication List Current Medications: Active Medications Acetaminophen (Tylenol -) 650 mg PO Q4H PRN PRN Reason: FEVER OR PAIN Last Admin: 04/11/17 21:29 Dose: 650 mg Piperacillin Sod/Tazobactam Sod (Zosyn 3.375gm Ivpb (Pre-Docked)) 50 mls @ 100 mls/hr IVPB Q8H-IV [facility] PRN Reason: Protocol Last Admin: 04/13/17 09:08 Dose: 100 mls/hr Insulin Aspart (Novolog Vial Sliding Scale -) 1 vial SQ ACHS [facility] PRN Reason: Protocol Last Admin: 04/13/17 12:05 Dose: Not Given Lactobacillus Acidophilus (Bacid -) 1 tab PO DAILY [facility] Last Admin: 04/13/17 09:08 Dose: 1 tab Memantine (Namenda -) 10 mg PO DAILY [facility] Last Admin: 04/13/17 09:08 Dose: 10 mg Ondansetron HCl (Zofran Injection) 4 mg IVPB Q6H PRN PRN Reason: NAUSEA Polyethylene Glycol (Miralax (For Daily Use) -) 17 gm PO DAILY [facility] Last Admin: 04/13/17 09:08 Dose: Not Given Silver Sulfadiazine (Silvadene -) 1 applic TP BID [facility] Last Admin: 04/13/17 09:08 Dose: Not Given Tamsulosin HCl (Flomax -) 0.4 mg PO DAILY [facility] Last Admin: 04/13/17 09:08 Dose: 0.4 mg - Objective Vital Signs: Vital Signs Temperature 97.9 F 04/13/17 10:00 Pulse Rate 78 04/13/17 10:01 Respiratory Rate 18 04/13/17 10:00 Blood Pressure 123/66 04/13/17 10:00 O2 Sat by Pulse Oximetry (%) 98 04/13/17 10:01 Constitutional: Yes: No Distress, Calm Cardiovascular: Yes: Regular Rate and Rhythm Respiratory: Yes: Regular, CTA Bilaterally Gastrointestinal: Yes: Normal Bowel Sounds, Soft Musculoskeletal: Yes: WNL Extremities: Yes: WNL Neurological: Yes: Alert, Oriented Psychiatric: Yes: Alert, Oriented Labs: CBC, BMP 04/13/17 06:20 04/13/17 06:20 INR, PTT INR 1.30 (0.82-1.09) H 04/10/17 06:05 Assessment/Plan Assessment/Plan (1) Septicemia Code(s): J18.9 - PNEUMONIA, UNSPECIFIED ORGANISM (2) Pleural effusion Code(s): J90 - PLEURAL EFFUSION, NOT ELSEWHERE CLASSIFIED (3) Abdominal pain Code(s): R10.9 - UNSPECIFIED ABDOMINAL PAIN Qualifiers: Abdominal location: right lower quadrant Qualified Code(s): R10.31 - Right lower quadrant pain (4) Dementia Code(s): F03.90 - UNSPECIFIED DEMENTIA WITHOUT BEHAVIORAL DISTURBANCE (5) COPD (chronic obstructive pulmonary disease) Code(s): J44.9 - CHRONIC OBSTRUCTIVE PULMONARY DISEASE, UNSPECIFIED (6) Diabetes mellitus Code(s): E11.9 - TYPE 2 DIABETES MELLITUS WITHOUT COMPLICATIONS (7) BPH (benign prostatic hyperplasia) Code(s): N40.0 - BENIGN PROSTATIC HYPERPLASIA WITHOUT LOWER URINRY TRACT SYMP (8) GT - Increase PO fluid intake. plan continue abx continue to monitor drainage incentive pricila rest as per primary team
[2017-04-13] MEDS: ACETAMINOPHEN 325 MG TABLET (FP) PO PRN (21:41)
[2017-04-14] MEDS: PIPERACILLIN/TAZOB 3.375 GM 50 ML IVPB SCH ×3 (03:09→17:00)
[2017-04-14] MEDS: INSULIN SLIDING SCALE (NOVOLOG) 1 VIAL SQ SCH ×4 (07:09→21:09)
[2017-04-14 08:08] LABS: BASOPHIL 0.8 % (0-2.0); EOSINOPHIL 0.8 % (0-4.5); MCH 32.2 pg (25.7-33.7); MEAN CELL VOLUME 89.3 fl (80-96); MEAN PLT VOLUME 6.8 fl (7.5-11.1); PLATELET COUNT 181 K/MM3 (134-434); RDW 14.8 % (11.9-15.9); WHITE BLOOD COUNT 4.5 K/mm3 (4.0-10.0)
[2017-04-14 08:27] LABS: ALBUMIN 2.9 g/dl (3.4-5.0); CALCIUM 8.4 mg/dL (8.5-10.1)
[2017-04-14 08:32] LABS: BILIRUBIN,TOTAL 0.7 mg/dL (0.2-1.0); COCKROFT - GAULT 53.26; CREATININE 1.5 mg/dL (0.7-1.3); TOT PROT 5.5 g/dl (6.4-8.2)
[2017-04-14] MEDS ORDERED: PT OWN MED DRAWER 7, Y5N ONE (09:59)
[2017-04-14] MEDS: ACETAMINOPHEN 325 MG TABLET (FP) PO PRN ×3 (10:06→21:02)
[2017-04-14] MEDS: TAMSULOSIN HCL 0.4 MG CAP.ER.24H (FP) PO SCH (10:07)
[2017-04-14] MEDS: MEMANTINE HCL 10 MG TABLET (FP) PO SCH (10:07)
[2017-04-14] MEDS: LACTOBACILLUS ACIDOPHILUS 1 EACH TAB (FP) PO SCH (10:07)
[2017-04-14] MEDS: POLYETHYLENE GLYCOL 3350 119 GM BTL PO SCH (10:09)
[2017-04-14] MEDS: SILVER SULFADIAZINE 1% TOP CREAM 50 GM JAR TP SCH ×2 (10:11→21:01)
--- NOTE | 2017-04-14 13:27 | PN ---
Progress Note, Physician History of Present Illness: pulmonary alert,-resp distress,-cp,-cough,min chest tube drainage - Current Medication List Current Medications: Active Medications Acetaminophen (Tylenol -) 650 mg PO Q4H PRN PRN Reason: FEVER OR PAIN Last Admin: 04/14/17 10:06 Dose: 650 mg Piperacillin Sod/Tazobactam Sod (Zosyn 3.375gm Ivpb (Pre-Docked)) 50 mls @ 100 mls/hr IVPB Q8H-IV [facility] PRN Reason: Protocol Last Admin: 04/14/17 10:07 Dose: 100 mls/hr Insulin Aspart (Novolog Vial Sliding Scale -) 1 vial SQ ACHS [facility] PRN Reason: Protocol Last Admin: 04/14/17 12:12 Dose: Not Given Lactobacillus Acidophilus (Bacid -) 1 tab PO DAILY [facility] Last Admin: 04/14/17 10:07 Dose: 1 tab Memantine (Namenda -) 10 mg PO DAILY [facility] Last Admin: 04/14/17 10:07 Dose: 10 mg Ondansetron HCl (Zofran Injection) 4 mg IVPB Q6H PRN PRN Reason: NAUSEA Polyethylene Glycol (Miralax (For Daily Use) -) 17 gm PO DAILY [facility] Last Admin: 04/14/17 10:09 Dose: Not Given Silver Sulfadiazine (Silvadene -) 1 applic TP BID [facility] Last Admin: 04/14/17 10:11 Dose: Not Given Tamsulosin HCl (Flomax -) 0.4 mg PO DAILY [facility] Last Admin: 04/14/17 10:07 Dose: 0.4 mg - Objective Vital Signs: Vital Signs Temperature 98.1 F 04/14/17 09:28 Pulse Rate 67 04/14/17 09:28 Respiratory Rate 18 04/14/17 10:00 Blood Pressure 100/41 04/14/17 09:28 O2 Sat by Pulse Oximetry (%) 100 04/14/17 10:00 Constitutional: Yes: Well Nourished, Calm Eyes: Yes: WNL HENT: Yes: WNL Neck: Yes: WNL Cardiovascular: Yes: Regular Rate and Rhythm, S1, S2 Respiratory: Yes: Diminished Gastrointestinal: Yes: Normal Bowel Sounds, Soft Extremities: Yes: WNL Edema: No Labs: CBC, BMP 04/14/17 07:08 04/14/17 07:08 INR, PTT INR 1.30 (0.82-1.09) H 04/10/17 06:05 Assessment/Plan A/P Pneumonia clinically improving Parapneumonic Pleural Effusion uncomplicated s/p chest tube drainage COPD DM BPH - cytology negative malignant cells - continue antibiotics as per ID - inhaled bronchodilators as needed - DVT prophylaxis - chest tube as per thoracic surgery - f/u chest x-ray DR STILL Problem List - Problems (1) COPD (chronic obstructive pulmonary disease) Code(s): J44.9 - CHRONIC OBSTRUCTIVE PULMONARY DISEASE, UNSPECIFIED (2) Diabetes mellitus Code(s): E11.9 - TYPE 2 DIABETES MELLITUS WITHOUT COMPLICATIONS (3) HCAP (healthcare-associated pneumonia) Code(s): J18.9 - PNEUMONIA, UNSPECIFIED ORGANISM (4) Pleural effusion Code(s): J90 - PLEURAL EFFUSION, NOT ELSEWHERE CLASSIFIED
--- NOTE | 2017-04-14 16:22 | PN ---
Progress Note (short form) - Note Progress Note: Thoracic Surgery: Significantly improved (RA sat 95%) now. Looks well. No productive cough. Drained over 500 initially but minimal daily since. Rare PMNs and sterile. Will likely pull tube rather than TPA. CXR shows well-expanded lung but CT should show some residual loculations. Will wait one more day for cultures and possibly pull Friday.
--- NOTE | 2017-04-14 19:48 | PN ---
Progress Note (short form) - Note Progress Note: Chest tube in place. Minimal drainage. Afebrile. Denies chest pain, shortness of breath, palpitation or dizziness. O/E Vital Signs Period Temp Pulse Resp BP Sys/Gama Pulse Ox Last 24 Hr 97.4 F-98.2 F 67-91 14-18 99-124/41-84 98-100 Heart regular Lungs clear Abd soft Ext no edema Current Medications Acetaminophen (Tylenol -) 650 mg PO Q4H PRN PRN Reason: FEVER OR PAIN Last Admin: 04/03/17 18:50 Dose: 650 mg Enoxaparin Sodium (Lovenox -) 40 mg SQ DAILY [facility] Last Admin: 04/07/17 10:12 Dose: 40 mg Piperacillin Sod/Tazobactam Sod (Zosyn 3.375gm Ivpb (Pre-Docked)) 50 mls @ 100 mls/hr IVPB Q8H-IV [facility] PRN Reason: Protocol Last Admin: 04/08/17 02:39 Dose: 100 mls/hr Insulin Aspart (Novolog Vial Sliding Scale -) 1 vial SQ ACHS [facility] PRN Reason: Protocol Last Admin: 04/08/17 06:19 Dose: Not Given Lactobacillus Acidophilus (Bacid -) 1 tab PO DAILY [facility] Last Admin: 04/07/17 10:12 Dose: 1 tab Memantine (Namenda -) 10 mg PO DAILY [facility] Last Admin: 04/07/17 10:12 Dose: 10 mg Ondansetron HCl (Zofran Injection) 4 mg IVPB Q6H PRN PRN Reason: NAUSEA Polyethylene Glycol (Miralax (For Daily Use) -) 17 gm PO DAILY [facility] Last Admin: 04/07/17 10:12 Dose: 17 gm Silver Sulfadiazine (Silvadene -) 1 applic TP BID [facility] Last Admin: 04/07/17 22:31 Dose: 1 applic Tamsulosin HCl (Flomax -) 0.4 mg PO DAILY [facility] Last Admin: 04/07/17 10:12 Dose: 0.4 mg CBC, BMP 04/14/17 07:08 04/14/17 07:08 A&P Assessment/Plan (1) Septicemia Assessment/Plan: - Improving. -cultures positive for streptococcus pneumonia. -continue IV abx. Code(s): J18.9 - PNEUMONIA, UNSPECIFIED ORGANISM (2) Pleural effusion Assessment/Plan: - Chest tube in place. -Loculated pleural effusion Code(s): J90 - PLEURAL EFFUSION, NOT ELSEWHERE CLASSIFIED (3) Abdominal pain Assessment/Plan: -resolved Code(s): R10.9 - UNSPECIFIED ABDOMINAL PAIN Qualifiers: Abdominal location: right lower quadrant Qualified Code(s): R10.31 - Right lower quadrant pain (4) Dementia Assessment/Plan: -continue namenda Code(s): F03.90 - UNSPECIFIED DEMENTIA WITHOUT BEHAVIORAL DISTURBANCE (5) COPD (chronic obstructive pulmonary disease) Assessment/Plan: -not in exacerbation -continue home regimen Code(s): J44.9 - CHRONIC OBSTRUCTIVE PULMONARY DISEASE, UNSPECIFIED (6) Diabetes mellitus Assessment/Plan: -diabetic diet -FSBS and SSI Code(s): E11.9 - TYPE 2 DIABETES MELLITUS WITHOUT COMPLICATIONS (7) BPH (benign prostatic hyperplasia) Assessment/Plan: -continue tamsulosin Code(s): N40.0 - BENIGN PROSTATIC HYPERPLASIA WITHOUT LOWER URINRY TRACT SYMP (8) GT - Increase PO fluid intake.
[2017-04-15] MEDS: PIPERACILLIN/TAZOB 3.375 GM 50 ML IVPB SCH ×2 (02:24→09:24)
[2017-04-15] MEDS: INSULIN SLIDING SCALE (NOVOLOG) 1 VIAL SQ SCH ×4 (06:33→21:43)
[2017-04-15 08:05] LABS: BASOPHIL 0.9 % (0-2.0); EOSINOPHIL 1.4 % (0-4.5); MCH 31.5 pg (25.7-33.7); MEAN PLT VOLUME 6.9 fl (7.5-11.1); NEUTROPHILS 52.3 % (42.8-82.8); PLATELET COUNT 182 K/MM3 (134-434); WHITE BLOOD COUNT 4.4 K/mm3 (4.0-10.0)
[2017-04-15 08:26] LABS: BILIRUBIN,TOTAL 0.7 mg/dL (0.2-1.0); CALCIUM 8.7 mg/dL (8.5-10.1); COCKROFT - GAULT 53.26; CREATININE 1.5 mg/dL (0.7-1.3); TOT PROT 5.7 g/dl (6.4-8.2)
[2017-04-15] MEDS: TAMSULOSIN HCL 0.4 MG CAP.ER.24H (FP) PO SCH (09:31)
[2017-04-15] MEDS: ACETAMINOPHEN 325 MG TABLET (FP) PO PRN ×2 (09:31→21:45)
[2017-04-15] MEDS: LACTOBACILLUS ACIDOPHILUS 1 EACH TAB (FP) PO SCH (09:31)
[2017-04-15] MEDS: MEMANTINE HCL 10 MG TABLET (FP) PO SCH (09:31)
[2017-04-15] MEDS: POLYETHYLENE GLYCOL 3350 119 GM BTL PO SCH (09:32)
[2017-04-15] MEDS: SILVER SULFADIAZINE 1% TOP CREAM 50 GM JAR TP SCH ×2 (09:32→21:45)
--- NOTE | 2017-04-15 09:37 | PN ---
Progress Note (short form) - Note Progress Note: Resting comfortably. States he feels much better since having chest tube placed. Denies n/v/f/c, CP or SOB. Last Vital Signs Temp Pulse Resp BP Pulse Ox 98.5 F 77 18 90/51 100 04/15/17 09:23 04/15/17 09:23 04/15/17 09:23 04/15/17 09:23 04/14/17 21:00 CBC, BMP 04/15/17 07:45 04/15/17 07:45 OUTPUT 04/14/17 04/15/17 17:43 06:00 Chest tube 150 40 CXR 04/14: no ptx or pleural effusion identified. Mild atelectasis. General: alert. nad Pulm: CxT to CS Problem List - Problems (1) Pleural effusion Assessment/Plan: Place chest tube to water-seal today f/u CXR (ordered) Most likely will dc tube tomorrow Cont medical management Above plan discussed with Dr. Garcia and agrees Code(s): J90 - PLEURAL EFFUSION, NOT ELSEWHERE CLASSIFIED
--- NOTE | 2017-04-15 10:05 | PN ---
Progress Note (short form) - Note Progress Note: Patient seen and examined. OOB to chair. Feeling better. Chest tube in place. Draining well. Afebrile. Denies chest pain, shortness of breath, palpitation or dizziness. O/E Vital Signs Period Temp Pulse Resp BP Sys/Gama Pulse Ox Last 24 Hr 98.1 F-98.5 F 74-91 16-18 90-122/51-60 95-100 Heart regular Lungs clear Abd soft Ext no edema Current Medications Acetaminophen (Tylenol -) 650 mg PO Q4H PRN PRN Reason: FEVER OR PAIN Last Admin: 04/03/17 18:50 Dose: 650 mg Enoxaparin Sodium (Lovenox -) 40 mg SQ DAILY [facility] Last Admin: 04/07/17 10:12 Dose: 40 mg Piperacillin Sod/Tazobactam Sod (Zosyn 3.375gm Ivpb (Pre-Docked)) 50 mls @ 100 mls/hr IVPB Q8H-IV [facility] PRN Reason: Protocol Last Admin: 04/08/17 02:39 Dose: 100 mls/hr Insulin Aspart (Novolog Vial Sliding Scale -) 1 vial SQ ACHS [facility] PRN Reason: Protocol Last Admin: 04/08/17 06:19 Dose: Not Given Lactobacillus Acidophilus (Bacid -) 1 tab PO DAILY [facility] Last Admin: 04/07/17 10:12 Dose: 1 tab Memantine (Namenda -) 10 mg PO DAILY [facility] Last Admin: 04/07/17 10:12 Dose: 10 mg Ondansetron HCl (Zofran Injection) 4 mg IVPB Q6H PRN PRN Reason: NAUSEA Polyethylene Glycol (Miralax (For Daily Use) -) 17 gm PO DAILY [facility] Last Admin: 04/07/17 10:12 Dose: 17 gm Silver Sulfadiazine (Silvadene -) 1 applic TP BID [facility] Last Admin: 04/07/17 22:31 Dose: 1 applic Tamsulosin HCl (Flomax -) 0.4 mg PO DAILY [facility] Last Admin: 04/07/17 10:12 Dose: 0.4 mg CBC, BMP 04/15/17 07:45 04/15/17 07:45 A&P Assessment/Plan (1) Septicemia Assessment/Plan: - Improving. -cultures positive for streptococcus pneumonia. -continue IV abx. Code(s): Ryan18.9 - PNEUMONIA, UNSPECIFIED ORGANISM (2) Pleural effusion Assessment/Plan: - Chest tube in place. Draining well. -Loculated pleural effusion Code(s): J90 - PLEURAL EFFUSION, NOT ELSEWHERE CLASSIFIED (3) Abdominal pain Assessment/Plan: -resolved Code(s): R10.9 - UNSPECIFIED ABDOMINAL PAIN Qualifiers: Abdominal location: right lower quadrant Qualified Code(s): R10.31 - Right lower quadrant pain (4) Dementia Assessment/Plan: -continue namenda Code(s): F03.90 - UNSPECIFIED DEMENTIA WITHOUT BEHAVIORAL DISTURBANCE (5) COPD (chronic obstructive pulmonary disease) Assessment/Plan: -not in exacerbation -continue home regimen Code(s): J44.9 - CHRONIC OBSTRUCTIVE PULMONARY DISEASE, UNSPECIFIED (6) Diabetes mellitus Assessment/Plan: -diabetic diet -FSBS and SSI Code(s): E11.9 - TYPE 2 DIABETES MELLITUS WITHOUT COMPLICATIONS (7) BPH (benign prostatic hyperplasia) Assessment/Plan: -continue tamsulosin Code(s): N40.0 - BENIGN PROSTATIC HYPERPLASIA WITHOUT LOWER URINRY TRACT SYMP (8) GT - Increase PO fluid intake.
--- NOTE | 2017-04-15 11:29 | PN ---
Progress Note (short form) - Note Progress Note: PULMONARY Denies shortness of breath or chest pain. No fevers or chills. Last Vital Signs Temp Pulse Resp BP Pulse Ox 98.5 F 77 18 90/51 95 04/15/17 09:23 04/15/17 09:23 04/15/17 09:23 04/15/17 09:23 04/15/17 09:38 Gen: NAD at rest Heart: RRR Lung: decreased breath sounds left base Abd: soft, nontender Ext: no edema CBC, BMP 04/15/17 07:45 04/15/17 07:45 Active Medications Acetaminophen (Tylenol -) 650 mg PO Q4H PRN PRN Reason: FEVER OR PAIN Last Admin: 04/15/17 09:31 Dose: 650 mg Piperacillin Sod/Tazobactam Sod (Zosyn 3.375gm Ivpb (Pre-Docked)) 50 mls @ 100 mls/hr IVPB Q8H-IV [facility] PRN Reason: Protocol Last Admin: 04/15/17 09:24 Dose: 100 mls/hr Insulin Aspart (Novolog Vial Sliding Scale -) 1 vial SQ ACHS [facility] PRN Reason: Protocol Last Admin: 04/15/17 06:33 Dose: Not Given Lactobacillus Acidophilus (Bacid -) 1 tab PO DAILY [facility] Last Admin: 04/15/17 09:31 Dose: 1 tab Memantine (Namenda -) 10 mg PO DAILY [facility] Last Admin: 04/15/17 09:31 Dose: 10 mg Ondansetron HCl (Zofran Injection) 4 mg IVPB Q6H PRN PRN Reason: NAUSEA Polyethylene Glycol (Miralax (For Daily Use) -) 17 gm PO DAILY [facility] Last Admin: 04/15/17 09:32 Dose: 17 gm Silver Sulfadiazine (Silvadene -) 1 applic TP BID [facility] Last Admin: 04/15/17 09:32 Dose: Not Given Tamsulosin HCl (Flomax -) 0.4 mg PO DAILY [facility] Last Admin: 04/15/17 09:31 Dose: 0.4 mg A/P Pneumonia Parapneumonic Pleural Effusion s/p pigtail drainage COPD DM BPH - complete antibiotics, can likely de-escalate - daily CXR while pigtail in, can likely d/c tomorrow if drainage minimal - incentive spirometry - inhaled bronchodilators as needed - DVT prophylaxis Problem List - Problems (1) COPD (chronic obstructive pulmonary disease) Code(s): J44.9 - CHRONIC OBSTRUCTIVE PULMONARY DISEASE, UNSPECIFIED (2) Diabetes mellitus Code(s): E11.9 - TYPE 2 DIABETES MELLITUS WITHOUT COMPLICATIONS (3) HCAP (healthcare-associated pneumonia) Code(s): J18.9 - PNEUMONIA, UNSPECIFIED ORGANISM (4) Pleural effusion Code(s): J90 - PLEURAL EFFUSION, NOT ELSEWHERE CLASSIFIED
--- NOTE | 2017-04-15 11:34 | PN ---
Progress Note, Physician History of Present Illness: feeling better no new issues drainage minimal no issues d/w thoracic surgeon - Current Medication List Current Medications: Active Medications Acetaminophen (Tylenol -) 650 mg PO Q4H PRN PRN Reason: FEVER OR PAIN Last Admin: 04/15/17 09:31 Dose: 650 mg Piperacillin Sod/Tazobactam Sod (Zosyn 3.375gm Ivpb (Pre-Docked)) 50 mls @ 100 mls/hr IVPB Q8H-IV [facility] PRN Reason: Protocol Last Admin: 04/15/17 09:24 Dose: 100 mls/hr Insulin Aspart (Novolog Vial Sliding Scale -) 1 vial SQ ACHS [facility] PRN Reason: Protocol Last Admin: 04/15/17 11:30 Dose: Not Given Lactobacillus Acidophilus (Bacid -) 1 tab PO DAILY [facility] Last Admin: 04/15/17 09:31 Dose: 1 tab Memantine (Namenda -) 10 mg PO DAILY [facility] Last Admin: 04/15/17 09:31 Dose: 10 mg Ondansetron HCl (Zofran Injection) 4 mg IVPB Q6H PRN PRN Reason: NAUSEA Polyethylene Glycol (Miralax (For Daily Use) -) 17 gm PO DAILY [facility] Last Admin: 04/15/17 09:32 Dose: 17 gm Silver Sulfadiazine (Silvadene -) 1 applic TP BID [facility] Last Admin: 04/15/17 09:32 Dose: Not Given Tamsulosin HCl (Flomax -) 0.4 mg PO DAILY [facility] Last Admin: 04/15/17 09:31 Dose: 0.4 mg - Objective Vital Signs: Vital Signs Temperature 98.5 F 04/15/17 09:23 Pulse Rate 77 04/15/17 09:23 Respiratory Rate 18 04/15/17 09:23 Blood Pressure 90/51 04/15/17 09:23 O2 Sat by Pulse Oximetry (%) 95 04/15/17 09:38 Constitutional: Yes: No Distress, Calm Cardiovascular: Yes: Regular Rate and Rhythm Respiratory: Yes: Regular, Poor Air Entry, Other (chest tube in place) Gastrointestinal: Yes: Normal Bowel Sounds, Soft Musculoskeletal: Yes: WNL Extremities: Yes: WNL Neurological: Yes: Alert, Oriented Psychiatric: Yes: Alert, Oriented Labs: CBC, BMP 04/15/17 07:45 04/15/17 07:45 INR, PTT INR 1.30 (0.82-1.09) H 04/10/17 06:05 Assessment/Plan Assessment/Plan (1) Septicemia Code(s): J18.9 - PNEUMONIA, UNSPECIFIED ORGANISM (2) Pleural effusion Code(s): J90 - PLEURAL EFFUSION, NOT ELSEWHERE CLASSIFIED (3) Abdominal pain Code(s): R10.9 - UNSPECIFIED ABDOMINAL PAIN Qualifiers: Abdominal location: right lower quadrant Qualified Code(s): R10.31 - Right lower quadrant pain (4) Dementia Code(s): F03.90 - UNSPECIFIED DEMENTIA WITHOUT BEHAVIORAL DISTURBANCE (5) COPD (chronic obstructive pulmonary disease) Code(s): J44.9 - CHRONIC OBSTRUCTIVE PULMONARY DISEASE, UNSPECIFIED (6) Diabetes mellitus Code(s): E11.9 - TYPE 2 DIABETES MELLITUS WITHOUT COMPLICATIONS (7) BPH (benign prostatic hyperplasia) Code(s): N40.0 - BENIGN PROSTATIC HYPERPLASIA WITHOUT LOWER URINRY TRACT SYMP (8) GT - Increase PO fluid intake. plan repeat cx result noted no growth so far continue to monitor drainage incentive pricila rest as per primary team will stop abx tomorrow
--- NOTE | 2017-04-15 16:08 | PN ---
Progress Note, Physician History of Present Illness: stable no new issues doing well - Current Medication List Current Medications: Active Medications Acetaminophen (Tylenol -) 650 mg PO Q4H PRN PRN Reason: FEVER OR PAIN Last Admin: 04/15/17 09:31 Dose: 650 mg Piperacillin Sod/Tazobactam Sod (Zosyn 3.375gm Ivpb (Pre-Docked)) 50 mls @ 100 mls/hr IVPB Q8H-IV [facility] PRN Reason: Protocol Last Admin: 04/15/17 09:24 Dose: 100 mls/hr Insulin Aspart (Novolog Vial Sliding Scale -) 1 vial SQ ACHS [facility] PRN Reason: Protocol Last Admin: 04/15/17 11:30 Dose: Not Given Lactobacillus Acidophilus (Bacid -) 1 tab PO DAILY [facility] Last Admin: 04/15/17 09:31 Dose: 1 tab Memantine (Namenda -) 10 mg PO DAILY [facility] Last Admin: 04/15/17 09:31 Dose: 10 mg Ondansetron HCl (Zofran Injection) 4 mg IVPB Q6H PRN PRN Reason: NAUSEA Polyethylene Glycol (Miralax (For Daily Use) -) 17 gm PO DAILY [facility] Last Admin: 04/15/17 09:32 Dose: 17 gm Silver Sulfadiazine (Silvadene -) 1 applic TP BID [facility] Last Admin: 04/15/17 09:32 Dose: Not Given Tamsulosin HCl (Flomax -) 0.4 mg PO DAILY [facility] Last Admin: 04/15/17 09:31 Dose: 0.4 mg - Objective Vital Signs: Vital Signs Temperature 98.3 F 04/15/17 15:00 Pulse Rate 77 04/15/17 15:00 Respiratory Rate 16 04/15/17 15:00 Blood Pressure 117/67 04/15/17 15:00 O2 Sat by Pulse Oximetry (%) 95 04/15/17 09:38 Constitutional: Yes: No Distress, Calm Cardiovascular: Yes: Regular Rate and Rhythm Respiratory: Yes: Regular, Poor Air Entry, Other (chest tube in place) Gastrointestinal: Yes: Normal Bowel Sounds, Soft Musculoskeletal: Yes: WNL Extremities: Yes: WNL Neurological: Yes: Alert, Oriented Psychiatric: Yes: Alert Labs: CBC, BMP 04/15/17 07:45 04/15/17 07:45 INR, PTT INR 1.30 (0.82-1.09) H 04/10/17 06:05 Assessment/Plan Assessment/Plan (1) Septicemia Code(s): J18.9 - PNEUMONIA, UNSPECIFIED ORGANISM (2) Pleural effusion Code(s): J90 - PLEURAL EFFUSION, NOT ELSEWHERE CLASSIFIED (3) Abdominal pain Code(s): R10.9 - UNSPECIFIED ABDOMINAL PAIN Qualifiers: Abdominal location: right lower quadrant Qualified Code(s): R10.31 - Right lower quadrant pain (4) Dementia Code(s): F03.90 - UNSPECIFIED DEMENTIA WITHOUT BEHAVIORAL DISTURBANCE (5) COPD (chronic obstructive pulmonary disease) Code(s): J44.9 - CHRONIC OBSTRUCTIVE PULMONARY DISEASE, UNSPECIFIED (6) Diabetes mellitus Code(s): E11.9 - TYPE 2 DIABETES MELLITUS WITHOUT COMPLICATIONS (7) BPH (benign prostatic hyperplasia) Code(s): N40.0 - BENIGN PROSTATIC HYPERPLASIA WITHOUT LOWER URINRY TRACT SYMP (8) GT - Increase PO fluid intake. plan stopped abx will watch off of abx rest as per primary team and thoracic
[2017-04-16] MEDS: INSULIN SLIDING SCALE (NOVOLOG) 1 VIAL SQ SCH ×4 (06:19→21:17)
[2017-04-16 07:34] LABS: BASOPHIL 0.8 % (0-2.0); EOSINOPHIL 1.5 % (0-4.5); MCH 31.9 pg (25.7-33.7); MCHC 35.4 g/dl (32.0-35.9); MEAN CELL VOLUME 90.2 fl (80-96); NEUTROPHILS 48.9 % (42.8-82.8); PLATELET COUNT 174 K/MM3 (134-434); RDW 15.2 % (11.9-15.9); WHITE BLOOD COUNT 4.5 K/mm3 (4.0-10.0)
[2017-04-16 07:53] LABS: CALCIUM 8.6 mg/dL (8.5-10.1)
[2017-04-16 08:00] LABS: ALBUMIN 3.1 g/dl (3.4-5.0); BILIRUBIN,TOTAL 0.6 mg/dL (0.2-1.0); COCKROFT - GAULT 61.45; CREATININE 1.3 mg/dL (0.7-1.3); TOT PROT 5.7 g/dl (6.4-8.2)
--- NOTE | 2017-04-16 09:58 | PN ---
Progress Note (short form) - Note Progress Note: Patient seen and examined. Doing well. Chest tube in place. Minimal drainage. Denies chest pain, shortness of breath, palpitation or dizziness. O/E Vital Signs Period Temp Pulse Resp BP Sys/Gama Pulse Ox Last 24 Hr 97.6 F-98.3 F 70-78 16-18 101-131/49-77 96 Heart regular Lungs clear Abd soft Ext no edema Current Medications Acetaminophen (Tylenol -) 650 mg PO Q4H PRN PRN Reason: FEVER OR PAIN Last Admin: 04/15/17 21:45 Dose: 650 mg Insulin Aspart (Novolog Vial Sliding Scale -) 1 vial SQ ACHS [facility] PRN Reason: Protocol Last Admin: 04/16/17 06:19 Dose: Not Given Lactobacillus Acidophilus (Bacid -) 1 tab PO DAILY [facility] Last Admin: 04/15/17 09:31 Dose: 1 tab Memantine (Namenda -) 10 mg PO DAILY [facility] Last Admin: 04/15/17 09:31 Dose: 10 mg Ondansetron HCl (Zofran Injection) 4 mg IVPB Q6H PRN PRN Reason: NAUSEA Polyethylene Glycol (Miralax (For Daily Use) -) 17 gm PO DAILY [facility] Last Admin: 04/15/17 09:32 Dose: 17 gm Silver Sulfadiazine (Silvadene -) 1 applic TP BID [facility] Last Admin: 04/15/17 21:45 Dose: Not Given Tamsulosin HCl (Flomax -) 0.4 mg PO DAILY [facility] Last Admin: 04/15/17 09:31 Dose: 0.4 mg CBC, BMP 04/16/17 06:30 04/16/17 06:30 A&P Assessment/Plan (1) Septicemia Assessment/Plan: Treated. Off abx. Code(s): J18.9 - PNEUMONIA, UNSPECIFIED ORGANISM (2) Pleural effusion Assessment/Plan: - Chest tube in place. Minimal drainage. -Loculated pleural effusion Code(s): J90 - PLEURAL EFFUSION, NOT ELSEWHERE CLASSIFIED (3) Abdominal pain Assessment/Plan: -resolved Code(s): R10.9 - UNSPECIFIED ABDOMINAL PAIN Qualifiers: Abdominal location: right lower quadrant Qualified Code(s): R10.31 - Right lower quadrant pain (4) Dementia Assessment/Plan: -continue namenda Code(s): F03.90 - UNSPECIFIED DEMENTIA WITHOUT BEHAVIORAL DISTURBANCE (5) COPD (chronic obstructive pulmonary disease) Assessment/Plan: -not in exacerbation -continue home regimen Code(s): J44.9 - CHRONIC OBSTRUCTIVE PULMONARY DISEASE, UNSPECIFIED (6) Diabetes mellitus Assessment/Plan: -diabetic diet -FSBS and SSI Code(s): E11.9 - TYPE 2 DIABETES MELLITUS WITHOUT COMPLICATIONS (7) BPH (benign prostatic hyperplasia) Assessment/Plan: -continue tamsulosin Code(s): N40.0 - BENIGN PROSTATIC HYPERPLASIA WITHOUT LOWER URINRY TRACT SYMP (8) GT - Increase PO fluid intake.
--- NOTE | 2017-04-16 10:29 | PN ---
Progress Note (short form) - Note Progress Note: Alert. Resting comfortably without complaint. His pigtail cath was placed to water seal for the past 24 hours. Denies n/v/f/c, CP or SOB. Last Vital Signs Temp Pulse Resp BP Pulse Ox 97.6 F 70 18 103/67 96 04/16/17 06:00 04/16/17 06:00 04/16/17 06:00 04/16/17 06:00 04/15/17 21:00 CBC, BMP 04/16/17 06:30 04/16/17 06:30 Microbiology 04/11/17 11:20 Pleural Fluid Gram Stain - Final 04/11/17 11:20 Pleural Fluid Body Fluid Culture - Final NO GROWTH OF AEROBIC ORGANISMS AFTER 48 HOURS INCUBATION 04/11/17 11:20 Pleural Fluid Anaerobic Culture - Final NO ANAEROBES WERE ISOLATED PE General: NAD Chest: pigtail in place. Placed back on suction (temporarily) to see if anything would drain...nothing came out. Problem List - Problems (1) Pleural effusion Assessment/Plan: After reviewing xray and speaking with Dr. Garcia, it was deemed that we could remove his pigtail cath. Removed while on rounds. Post-Pull xray ordered Cont medical management Code(s): J90 - PLEURAL EFFUSION, NOT ELSEWHERE CLASSIFIED
[2017-04-16] MEDS: TAMSULOSIN HCL 0.4 MG CAP.ER.24H (FP) PO SCH (10:31)
[2017-04-16] MEDS: MEMANTINE HCL 10 MG TABLET (FP) PO SCH (10:31)
[2017-04-16] MEDS: POLYETHYLENE GLYCOL 3350 119 GM BTL PO SCH (10:31)
[2017-04-16] MEDS: LACTOBACILLUS ACIDOPHILUS 1 EACH TAB (FP) PO SCH (10:31)
--- NOTE | 2017-04-16 10:34 | PN ---
Progress Note (short form) - Note Progress Note: PULMONARY AWAKE/ALERT VSS/AFEBRILE ANICTERIC PIGTAIL CATHETER REMOVED LEFT CHEST S1S2 BS+ LESS EDEMA LABS/MEDS/NOTES/IMAGING Pneumonia resolved Parapneumonic Pleural Effusion uncomplicated drained COPD DM BPH - inhaled bronchodilators prn - DVT prophylaxis - CXR - DISCHARGE PLANNING Milana ALBERTS MD
[2017-04-16] MEDS: SILVER SULFADIAZINE 1% TOP CREAM 50 GM JAR TP SCH ×2 (11:28→21:18)
[2017-04-16] MEDS: ACETAMINOPHEN 325 MG TABLET (FP) PO PRN ×2 (11:30→19:16)
--- NOTE | 2017-04-16 16:39 | PN ---
Progress Note, Physician History of Present Illness: doing well no issues chest tube removed patient stable - Current Medication List Current Medications: Active Medications Acetaminophen (Tylenol -) 650 mg PO Q4H PRN PRN Reason: FEVER OR PAIN Last Admin: 04/16/17 11:30 Dose: 650 mg Insulin Aspart (Novolog Vial Sliding Scale -) 1 vial SQ ACHS [facility] PRN Reason: Protocol Last Admin: 04/16/17 11:28 Dose: Not Given Lactobacillus Acidophilus (Bacid -) 1 tab PO DAILY [facility] Last Admin: 04/16/17 10:31 Dose: 1 tab Memantine (Namenda -) 10 mg PO DAILY [facility] Last Admin: 04/16/17 10:31 Dose: 10 mg Ondansetron HCl (Zofran Injection) 4 mg IVPB Q6H PRN PRN Reason: NAUSEA Polyethylene Glycol (Miralax (For Daily Use) -) 17 gm PO DAILY [facility] Last Admin: 04/16/17 10:31 Dose: 17 gm Silver Sulfadiazine (Silvadene -) 1 applic TP BID [facility] Last Admin: 04/16/17 11:28 Dose: 1 applic Tamsulosin HCl (Flomax -) 0.4 mg PO DAILY [facility] Last Admin: 04/16/17 10:31 Dose: 0.4 mg - Objective Vital Signs: Vital Signs Temperature 97.3 F L 04/16/17 15:57 Pulse Rate 85 04/16/17 15:57 Respiratory Rate 20 04/16/17 15:57 Blood Pressure 98/60 04/16/17 15:57 O2 Sat by Pulse Oximetry (%) 98 04/16/17 09:00 Constitutional: Yes: No Distress, Calm Cardiovascular: Yes: Regular Rate and Rhythm Respiratory: Yes: Regular, CTA Bilaterally Gastrointestinal: Yes: Normal Bowel Sounds, Soft Musculoskeletal: Yes: WNL Extremities: Yes: Other Wound/Incision: Yes: Dressing Dry and Intact Neurological: Yes: Alert, Oriented Psychiatric: Yes: Alert Labs: CBC, BMP 04/16/17 06:30 04/16/17 06:30 INR, PTT INR 1.30 (0.82-1.09) H 04/10/17 06:05 Assessment/Plan Assessment/Plan (1) Septicemia Code(s): J18.9 - PNEUMONIA, UNSPECIFIED ORGANISM (2) Pleural effusion Code(s): J90 - PLEURAL EFFUSION, NOT ELSEWHERE CLASSIFIED (3) Abdominal pain Code(s): R10.9 - UNSPECIFIED ABDOMINAL PAIN Qualifiers: Abdominal location: right lower quadrant Qualified Code(s): R10.31 - Right lower quadrant pain (4) Dementia Code(s): F03.90 - UNSPECIFIED DEMENTIA WITHOUT BEHAVIORAL DISTURBANCE (5) COPD (chronic obstructive pulmonary disease) Code(s): J44.9 - CHRONIC OBSTRUCTIVE PULMONARY DISEASE, UNSPECIFIED (6) Diabetes mellitus Code(s): E11.9 - TYPE 2 DIABETES MELLITUS WITHOUT COMPLICATIONS (7) BPH (benign prostatic hyperplasia) Code(s): N40.0 - BENIGN PROSTATIC HYPERPLASIA WITHOUT LOWER URINRY TRACT SYMP (8) GT - Increase PO fluid intake. plan chest tube removed off of abx stable patient doing well
[2017-04-17] MEDS: INSULIN SLIDING SCALE (NOVOLOG) 1 VIAL SQ SCH ×2 (06:38→12:44)
--- NOTE | 2017-04-17 08:50 | PN ---
Progress Note (short form) - Note Progress Note: Patient seen and examined. Doing well. Pigtail catheter removed Denies chest pain, shortness of breath, palpitation or dizziness. O/E Vital Signs Period Temp Pulse Resp BP Sys/Gama Pulse Ox Last 24 Hr 97.3 F-98.5 F 70-85 17-20 92-112/60-64 98 Heart regular Lungs clear Abd soft Ext no edema Current Medications Acetaminophen (Tylenol -) 650 mg PO Q4H PRN PRN Reason: FEVER OR PAIN Last Admin: 04/15/17 21:45 Dose: 650 mg Insulin Aspart (Novolog Vial Sliding Scale -) 1 vial SQ ACHS [facility] PRN Reason: Protocol Last Admin: 04/16/17 06:19 Dose: Not Given Lactobacillus Acidophilus (Bacid -) 1 tab PO DAILY [facility] Last Admin: 04/15/17 09:31 Dose: 1 tab Memantine (Namenda -) 10 mg PO DAILY [facility] Last Admin: 04/15/17 09:31 Dose: 10 mg Ondansetron HCl (Zofran Injection) 4 mg IVPB Q6H PRN PRN Reason: NAUSEA Polyethylene Glycol (Miralax (For Daily Use) -) 17 gm PO DAILY [facility] Last Admin: 04/15/17 09:32 Dose: 17 gm Silver Sulfadiazine (Silvadene -) 1 applic TP BID [facility] Last Admin: 04/15/17 21:45 Dose: Not Given Tamsulosin HCl (Flomax -) 0.4 mg PO DAILY [facility] Last Admin: 04/15/17 09:31 Dose: 0.4 mg CBC, BMP 04/16/17 06:30 04/16/17 06:30 A&P Assessment/Plan (1) Septicemia Assessment/Plan: Treated. Off abx. Code(s): J18.9 - PNEUMONIA, UNSPECIFIED ORGANISM (2) Pleural effusion Assessment/Plan: - Pigtail catheter removed yesterday. -Loculated pleural effusion Code(s): J90 - PLEURAL EFFUSION, NOT ELSEWHERE CLASSIFIED (3) Abdominal pain Assessment/Plan: -resolved Code(s): R10.9 - UNSPECIFIED ABDOMINAL PAIN Qualifiers: Abdominal location: right lower quadrant Qualified Code(s): R10.31 - Right lower quadrant pain (4) Dementia Assessment/Plan: -continue namenda Code(s): F03.90 - UNSPECIFIED DEMENTIA WITHOUT BEHAVIORAL DISTURBANCE (5) COPD (chronic obstructive pulmonary disease) Assessment/Plan: -not in exacerbation -continue home regimen Code(s): J44.9 - CHRONIC OBSTRUCTIVE PULMONARY DISEASE, UNSPECIFIED (6) Diabetes mellitus Assessment/Plan: -diabetic diet -FSBS and SSI Code(s): E11.9 - TYPE 2 DIABETES MELLITUS WITHOUT COMPLICATIONS (7) BPH (benign prostatic hyperplasia) Assessment/Plan: -continue tamsulosin Code(s): N40.0 - BENIGN PROSTATIC HYPERPLASIA WITHOUT LOWER URINRY TRACT SYMP (8) GT - Increase PO fluid intake. Patient is stable to be discharged back to [facility].
--- NOTE | 2017-04-17 08:51 | DS ---
Physical Examination Vital Signs: Vital Signs Temperature 98.3 F 04/17/17 06:00 Pulse Rate 70 04/17/17 06:00 Respiratory Rate 18 04/17/17 06:00 Blood Pressure 112/61 04/17/17 06:00 O2 Sat by Pulse Oximetry (%) 98 04/16/17 09:00 Findings/Remarks: (1) Septicemia Assessment/Plan: Treated. Off abx. Code(s): J18.9 - PNEUMONIA, UNSPECIFIED ORGANISM (2) Pleural effusion Assessment/Plan: - Pigtail catheter removed yesterday. -Loculated pleural effusion Code(s): J90 - PLEURAL EFFUSION, NOT ELSEWHERE CLASSIFIED (3) Abdominal pain Assessment/Plan: -resolved Code(s): R10.9 - UNSPECIFIED ABDOMINAL PAIN Qualifiers: Abdominal location: right lower quadrant Qualified Code(s): R10.31 - Right lower quadrant pain (4) Dementia Assessment/Plan: -continue namenda Code(s): F03.90 - UNSPECIFIED DEMENTIA WITHOUT BEHAVIORAL DISTURBANCE (5) COPD (chronic obstructive pulmonary disease) Assessment/Plan: -not in exacerbation -continue home regimen Code(s): J44.9 - CHRONIC OBSTRUCTIVE PULMONARY DISEASE, UNSPECIFIED (6) Diabetes mellitus Assessment/Plan: -diabetic diet -FSBS and SSI Code(s): E11.9 - TYPE 2 DIABETES MELLITUS WITHOUT COMPLICATIONS (7) BPH (benign prostatic hyperplasia) Assessment/Plan: -continue tamsulosin Code(s): N40.0 - BENIGN PROSTATIC HYPERPLASIA WITHOUT LOWER URINRY TRACT SYMP (8) GT - Increase PO fluid intake. Patient is stable to be discharged back to [facility]. Constitutional: Yes: No Distress Eyes: Yes: Conjunctiva Clear, EOM Intact HENT: Yes: Atraumatic, Normocephalic Neck: Yes: Supple, Trachea Midline Cardiovascular: Yes: Regular Rate and Rhythm, S1, S2 Respiratory: Yes: Diminished (B/L lung base) Gastrointestinal: Yes: Soft Labs: CBC, BMP 04/16/17 06:30 04/16/17 06:30 Discharge Summary Reason For Visit: LEUKOCYTOSIS; PLEURAL EFFUSION Current Active Problems GT (acute kidney injury) (Acute) Abdominal pain (Acute) BPH (benign prostatic hyperplasia) (Acute) COPD (chronic obstructive pulmonary disease) (Acute) Dementia (Acute) Diabetes mellitus (Acute) HCAP (healthcare-associated pneumonia) (Acute) Pleural effusion (Acute) Septicemia (Acute) - Instructions Referrals: [facility] [Outside] Cezar Austin [Primary Care Provider] - Disposition: [facility] - Home Medications Comprehensive Discharge Medication List: Ambulatory Orders Insulin Lispro [Humalog Kwikpen U-100] 100 unit SQ DAILY 03/31/17 Memantine HCl [Namenda -] 10 mg PO DAILY 03/31/17 Tamsulosin HCl 0.4 mg PO DAILY 03/31/17 Acetaminophen [Tylenol .Regular Strength -] 650 mg PO Q6H PRN #30 tablet Polyethylene Glycol 3350 [Miralax 119 gm Btl -] 17 gm PO DAILY #30 bottle Silver Sulfadiazine 1% Top Cr [Silvadene -] 1 applic TP BID #60 jar 04/17/17
[2017-04-17] MEDS: TAMSULOSIN HCL 0.4 MG CAP.ER.24H (FP) PO SCH (10:50)
[2017-04-17] MEDS: MEMANTINE HCL 10 MG TABLET (FP) PO SCH (10:50)
[2017-04-17] MEDS: LACTOBACILLUS ACIDOPHILUS 1 EACH TAB (FP) PO SCH (10:50)
[2017-04-17] MEDS: POLYETHYLENE GLYCOL 3350 119 GM BTL PO SCH (10:51)
[2017-04-17] MEDS: SILVER SULFADIAZINE 1% TOP CREAM 50 GM JAR TP SCH (10:52)
[2017-04-17] MEDS ORDERED: INSULIN (NOVOLOG) ASPART 100 UNITS/ML 10ML VIAL ONE (10:59)
--- NOTE | 2017-04-17 11:47 | PN ---
Progress Note (short form) - Note Progress Note: PULMONARY Pigtail out. Denies shortness of breath or chest pain. No fevers or chills. Last Vital Signs Temp Pulse Resp BP Pulse Ox 98.3 F 70 18 112/61 98 04/17/17 06:00 04/17/17 06:00 04/17/17 06:00 04/17/17 06:00 04/16/17 09:00 Gen: NAD at rest Heart: RRR Lung: decreased breath sounds left base Abd: soft, nontender Ext: no edema CBC, BMP 04/16/17 06:30 04/16/17 06:30 Active Medications Acetaminophen (Tylenol -) 650 mg PO Q4H PRN PRN Reason: FEVER OR PAIN Last Admin: 04/16/17 19:16 Dose: 650 mg Insulin Aspart (Novolog Vial Sliding Scale -) 1 vial SQ ACHS [facility] PRN Reason: Protocol Last Admin: 04/17/17 06:38 Dose: Not Given Lactobacillus Acidophilus (Bacid -) 1 tab PO DAILY [facility] Last Admin: 04/17/17 10:50 Dose: 1 tab Memantine (Namenda -) 10 mg PO DAILY [facility] Last Admin: 04/17/17 10:50 Dose: 10 mg Ondansetron HCl (Zofran Injection) 4 mg IVPB Q6H PRN PRN Reason: NAUSEA Polyethylene Glycol (Miralax (For Daily Use) -) 17 gm PO DAILY [facility] Last Admin: 04/17/17 10:51 Dose: 17 gm Silver Sulfadiazine (Silvadene -) 1 applic TP BID [facility] Last Admin: 04/17/17 10:52 Dose: Not Given Tamsulosin HCl (Flomax -) 0.4 mg PO DAILY [facility] Last Admin: 04/17/17 10:50 Dose: 0.4 mg A/P Pneumonia Parapneumonic Pleural Effusion s/p pigtail drainage COPD DM BPH - antibiotics completed - incentive spirometry - inhaled bronchodilators as needed - DVT prophylaxis - can discharge from pulmonary standpoint Problem List - Problems (1) COPD (chronic obstructive pulmonary disease) Code(s): J44.9 - CHRONIC OBSTRUCTIVE PULMONARY DISEASE, UNSPECIFIED (2) Diabetes mellitus Code(s): E11.9 - TYPE 2 DIABETES MELLITUS WITHOUT COMPLICATIONS (3) HCAP (healthcare-associated pneumonia) Code(s): J18.9 - PNEUMONIA, UNSPECIFIED ORGANISM (4) Pleural effusion Code(s): J90 - PLEURAL EFFUSION, NOT ELSEWHERE CLASSIFIED
[2017-04-17 13:31] VITALS: TEMP 98.8
[2017-04-17 13:32] VITALS: BP 101/54; PULSE 96
== END 2017-04-17 13:47 | DRG 871 ==
LOC: JER 11:01 → JERBED 15:30 → J5S 20:57
PROVIDERS: ADMIT Internal Medicine; ATTEND Internal Medicine
PROC: 0W9B3ZZ Drainage of Left Pleural Cavity, Percutaneous Approach (ICD-10-PCS; principal; 2017-04-02)
PROC: 0W9B30Z Drainage of Left Pleural Cavity with Drainage Device, Percutaneous Approach (ICD-10-PCS; 2017-04-11)
DX: A41.9 Sepsis, unspecified organism (principal); J18.9 Pneumonia, unspecified organism; J90 Pleural effusion, not elsewhere classified; N17.9 Acute kidney failure, unspecified; F03.90 Unspecified dementia, unspecified severity, without behavioral disturbance, psychotic disturbance, mood disturbance, and anxiety; R10.9 Unspecified abdominal pain; J44.9 Chronic obstructive pulmonary disease, unspecified; E11.9 Type 2 diabetes mellitus without complications; N40.0 Benign prostatic hyperplasia without lower urinary tract symptoms; E88.09 Other disorders of plasma-protein metabolism, not elsewhere classified
CPT/HCPCS: 32557; 36415; 71010-TC; 71020-TC; 71250-TC; 71260-TC; 74020-TC; 74177-TC; 76098-TC; 76942; 76998-TC; 80048; 80053; 81003; 81015; 82042; 82150; 82550; 82803; 82945; 83605; 83615; 83735; 84100; 84157; 84478; 84484; 85025; 85610; 85730; 86850; 86900; 86901; 87040; 87070; 87075; 87086; 87102; 87116; 87186; 87205; 87206; 87210; 87899; 88108; 88305-TC; 89051; 93005; 93010; 93306-TC; 94640; 97116-GP; 97161-GP; 99284-25; C1729; C1769; Q9967